=== PATIENT | male | born 1950 | race Caucasian/White ===

== ENCOUNTER 2019-04-12 17:09 | Inpatient (IN) | payer MEDICARE ==
[~2019-04-12] VITALS: Ht 188 cm; Wt 94.3 kg
[2019-04-12 18:11] LABS: BASOPHILS 0.5 % (0-2); EOSINOPHILS 6.3 % (0-7); HEMATOCRIT 44.7 % (42.0-54.0); HEMOGLOBIN 14.3 g/dL (13.5-17.5); IMMATURE GRANULOCYTES 0.5 % (0-5); LYMPHOCYTES 14.2 % (15-50); MCH 24.2 pg (26.0-34.0); MCV 75.8 fL (80.0-100.0); MEAN PLATELET VOLUME 9.6 fL (7.4-10.4); MONOCYTES 14.6 % (2-11); NEUTROPHILS 63.9 % (40-80); PLATELET COUNT 313 10x3/uL (130-400); RDW 18.1 % (11.5-14.5); WBC 8.9 10x3/uL (4.8-10.8)
--- NOTE | 2019-04-12 18:16 | NUR ---
PT FROM DR OFFICE UPON ARRIVAL OXYGEN STAT WAS IN 50S. WHEN ARRIVED ON THE FLOOR ON 4L NC ONLY STATING 77. ON 6L NC NOW STATING 91. DENIES ANY PAIN AT THIS TIME. IV TO RIGHT HAND PATENT NO REDNESS OR TENDERNESS. DENIES ANY FURTHER NEED AT THIS TIME. CALL LIGHT IN REACH. BED LOW POSITION. FAMILY AT BEDSIDE AT THIS TIME.
[2019-04-12 18:25] VITALS: BP 157/85; BMI 26.7
[2019-04-12] MEDS ORDERED: AZOR 10-20 MG T1 TAB PO (18:40)
[2019-04-12] MEDS ORDERED: FARXIGA10 MG PO (18:41)
[2019-04-12] MEDS ORDERED: OMEPRAZOLE40 MG PO (18:42)
[2019-04-12] MEDS ORDERED: TRIAMTERENE-HC1 EAC3 PO (18:43)
[2019-04-12 18:48] LABS: ALBUMIN 3.5 g/dL (3.4-5.0); ALKALINE PHOSPHATASE 55 U/L (46-116); ALT (SGPT) 19 U/L (10-68); BILIRUBIN - TOTAL 0.56 mg/dL (0.2-1.3); CALC OSMOLALITY 281 mosm/kg (275-300); CALCIUM 8.9 mg/dL (8.5-10.1); CARBON DIOXIDE 30.6 mmol/L (21.0-32.0); CHLORIDE - SERUM 101 mmol/L (98-107); CREATININE - SERUM 1.1 mg/dL (0.6-1.3); GLUCOSE 153 mg/dL (74-106); POTASSIUM - SERUM 3.9 mmol/L (3.5-5.1); PROTEIN - SERUM 7.6 g/dL (6.4-8.2); SODIUM 140 mmol/L (136-145); UREA NITROGEN 12 mg/dL (7-18); eGFR NON AFRICAN AMERICAN 70 mL/min (90-120)
[2019-04-12 18:59] LABS: CKMB 1.1 U/L (0.0-3.6); CREATINE KINASE 73 UL (21-232); TROPONIN-I < 0.017 ng/mL (0.000-0.060)
[2019-04-12 20:52] VITALS: BP 115/76
--- NOTE | 2019-04-12 21:00 | NUR ---
AWAKE,ALERT.NO COMPLAITNS VOICED. RESP UNLABORED. O2 @ 9L PER HIGHFLOW. NO DISTRESS NOTED. IV TO RIGHT HAND INTACT WITHOUT REDNESS OR EDEMA NOTED. CL IN REACH
[2019-04-13 01:11] VITALS: BP 126/73
--- NOTE | 2019-04-13 04:48 | NUR ---
I have reviewed this patient and I concur with the Shift Assessment completed by the Licensed Practical Nurse today this shift.
[2019-04-13 06:01] VITALS: BP 127/78
[2019-04-13 06:22] LABS: BASOPHILS 0.1 % (0-2); EOSINOPHILS 0 % (0-7); HEMATOCRIT 43.5 % (42.0-54.0); HEMOGLOBIN 13.9 g/dL (13.5-17.5); IMMATURE GRANULOCYTES 0.4 % (0-5); LYMPHOCYTES 9.8 % (15-50); MCH 24.1 pg (26.0-34.0); MCV 75.4 fL (80.0-100.0); MEAN PLATELET VOLUME 10.2 fL (7.4-10.4); NEUTROPHILS 87.7 % (40-80); PLATELET COUNT 346 10x3/uL (130-400); RBC 5.77 10x6/uL (4.20-6.10); RDW 18.3 % (11.5-14.5); WBC 7.2 10x3/uL (4.8-10.8)
[2019-04-13 06:48] LABS: CALC OSMOLALITY 284 mosm/kg (275-300); CALCIUM 8.8 mg/dL (8.5-10.1); CARBON DIOXIDE 29.6 mmol/L (21.0-32.0); CHLORIDE - SERUM 101 mmol/L (98-107); CREATININE - SERUM 0.9 mg/dL (0.6-1.3); GLUCOSE 186 mg/dL (74-106); MAGNESIUM - SERUM 2.4 mg/dL (1.8-2.4); PHOSPHOROUS 3.6 mg/dL (2.5-4.9); POTASSIUM - SERUM 4.9 mmol/L (3.5-5.1); PRO BNP 408 pg/mL (0-125); SODIUM 140 mmol/L (136-145); UREA NITROGEN 15 mg/dL (7-18); eGFR NON AFRICAN AMERICAN 89 mL/min (90-120)
[2019-04-13 07:06] LABS: INR 1.16 (0.85-1.17); PROTIME 14.3 SECONDS (11.6-15.0)
[2019-04-13 07:07] LABS: APTT 34.9 SECONDS (22.8-39.4)
[2019-04-13 07:08] LABS: D-DIMER-QUANTITATIVE 0.71 ug/mLFEU (0.20-0.54)
[2019-04-13 08:43] VITALS: BP 141/83
[2019-04-13 12:08] VITALS: Ht 188 cm; Wt 94.3 kg
--- NOTE | 2019-04-13 12:47 | NUR ---
PT RESTING IN BED. NO SIGNS OF DISTRESS. IV TO RIGHT HAND AND LEFT FORMARM PATENT NO REDNESS OR TENDERNESS. COMPLAINS OF PAIN. MEDICATIONS GIVEN. ON 9L HIGHFLOW. DENIES ANY FURTHER NEED AT THIS TIME. CALL LIGHT IN REACH BED LOW POSITION. FAMILY AT BEDSIDE AT THIS TIME.
[2019-04-13 12:50] LABS: APPEARANCE CLEAR (CLEAR); BILIRUBIN NEGATIVE (NEGATIVE); COLOR YELLOW (YELLOW); GLUCOSE 250 mg/dL (NEGATIVE); KETONE SMALL mg/dL (NEGATIVE); NITRITE NEGATIVE (NEGATIVE); PROTEIN NEGATIVE (NEGATIVE); UROBILINOGEN NORMAL (NORMAL)
[2019-04-13 13:12] VITALS: BP 123/72
--- NOTE | 2019-04-13 13:32 | NUR ---
I have reviewed this patient and I concur with the Shift Assessment completed by the Licensed Practical Nurse today this shift.
[2019-04-13 15:43] VITALS: BP 111/69
--- NOTE | 2019-04-13 20:45 | NUR ---
WATCHING TV QUEITLY WITH NO DISTRESS NOTED. RESP UNALBORED. O2 @ 3L PER NC ON. SL TO RIGHT WRIST AND LEFT FOREARM WITHOUT REDNESS OR EDEMA NOTED. NO COMPLAITNS VOCIED. CL IN REACH
[2019-04-13 21:08] VITALS: BP 114/69
--- NOTE | 2019-04-14 02:35 | NUR ---
I have reviewed this patient and I concur with the Shift Assessment completed by the Licensed Practical Nurse today this shift.
[2019-04-14 05:04] VITALS: BP 113/68
[2019-04-14 05:14] LABS: BASOPHILS 0 % (0-2); EOSINOPHILS 0 % (0-7); HEMATOCRIT 43.1 % (42.0-54.0); HEMOGLOBIN 13.1 g/dL (13.5-17.5); IMMATURE GRANULOCYTES 0.2 % (0-5); LYMPHOCYTES 6.6 % (15-50); MCH 23.8 pg (26.0-34.0); MCHC 30.4 g/dL (31.0-37.0); MEAN PLATELET VOLUME 9.5 fL (7.4-10.4); MONOCYTES 6.7 % (2-11); NEUTROPHILS 86.5 % (40-80); PLATELET COUNT 341 10x3/uL (130-400); RDW 17.9 % (11.5-14.5)
[2019-04-14 05:20] LABS: MCV 78.4 fL (80.0-100.0); WBC 13.8 10x3/uL (4.8-10.8)
[2019-04-14 06:05] LABS: CALC OSMOLALITY 290 mosm/kg (275-300); CHLORIDE - SERUM 104 mmol/L (98-107); GLUCOSE 187 mg/dL (74-106); MAGNESIUM - SERUM 2.4 mg/dL (1.8-2.4); PHOSPHOROUS 4.5 mg/dL (2.5-4.9); POTASSIUM - SERUM 4.8 mmol/L (3.5-5.1); SODIUM 142 mmol/L (136-145)
[2019-04-14 06:17] LABS: CALCIUM 8.2 mg/dL (8.5-10.1); eGFR NON AFRICAN AMERICAN 79 mL/min (90-120)
[2019-04-14 06:22] LABS: UREA NITROGEN 21 mg/dL (7-18)
[2019-04-14 08:06] VITALS: BP 135/74
--- NOTE | 2019-04-14 12:37 | NUR ---
PT RESTING IN BED. NO SIGNS OF DISTRESS. IV TO RIGHT HAND AND LEFT FORARM PATENT NO REDNESS OR TENDERNESS. ON 4L HIGH FLOW. DENIES ANY FURTHER NEED AT THIS TIME. CALL LIGHT IN REACH. BED LOW POSITION. FAMILY AT BEDSIDE AT THIS TIME.
--- NOTE | 2019-04-14 12:40 | EC ---
PATIENT:CHELSEA HERNANDEZ DATE OF SERVICE: 04/12/19 SEX: M MEDICAL RECORD: [id number] DATE OF : [birth year] LOCATION:D.MS Day AGE OF PATIENT: 68 ADMISSION DATE: 04/12/19 REFERRING PHYSICIAN: INTERPRETING PHYSICIAN: KEN PAUL MD ECHOCARDIOGRAM REPORT ECHO CHARGES 4 ECHO COMPLETE Date: 04/13/19 CLINICAL DIAGNOSIS: MEDEL/WEAKNESS ECHOCARDIOGRAPHIC MEASUREMENTS (adult normal given) AC root (d.<3.7cm) 3.2 cm LV Septum d (<1.2 cm> 1.0 cm Valve Excursion 1.9 cm LV Septum (systole) 1.5 cm Left Atria (s.<4.0cm> 3.5 cm LVPW d(<1.2cm) 1.1 cm RV (d.<2.3cm) 3.1 cm LVPW (sytole) 2.0 cm LV diastole(<5.6CM) 5.1 cm MV E-F(>70mm/sec) cm LV systole 2.4 cm LVOT Diameter 1.9 cm MV exc.(>10mm) cm Est.ejection fraction (50-75%) % DOPPLER: LVIT cm/sec A 101 cm/sec E 83.0 cm/sec LA cm/sec RVSP 17.0 mmHg LVOT 117 cm/sec AOP1/2T m/s Asc. Ao 132 cm/sec RVOT 71.0 cm/sec RA cm/sec PA 62.0 cm/sec AV Gradient Peak 7.0 mmHg AV Mean 3.0 mmHg AV Area 2.7 cm MV Gradient Peak 6.0 mmHg MV Mean 2.2 mmHg MV Area cm COMMENTS: Dope House Operator Helper: Josef PIERCEOE Switchboard And Control Room Operator: 3 Dr. Lloyd TAPE# PACS Pericardial Effusion N DATE OF SERVICE: Adequate 2D, color flow, spectral Doppler, and M-mode. No LVH. LV internal dimension is normal. Wall motion is normal. EF is greater than or equal to 55%. Aortic valve is tricuspid. No evidence of stenosis by Doppler interrogation. Left atrium is normal at 3.5 cm. Mitral valve shows no prolapse. Trace MR. Right-sided chambers grossly normal. Trace TR. TRANSINT:[id number] Voice Confirmation ID: [id number] DOCUMENT ID: [id number] ECHOCARDIOGRAM REPORT [id number] CHELSEA HERNANDEZ,KEN Stewart MD at 1240 CC: [id number] DICTATION DATE: 04/13/19 131 DIGITAL PRE PRESS OPERATOR: 04/13/19 1327 ADM IN [place] [id number] [place] [id number]
[2019-04-14 12:56] VITALS: BP 130/85
[2019-04-14] MEDS ORDERED: PREDNISONE10 MG PO (13:03)
--- NOTE | 2019-04-14 13:30 | MORECARE ---
CASE MANAGEMENT DISCHARGE SUMMARY PATIENT: CHELSEA DESAI UNIT: [id number] ADM DATE: 04/12/19 AGE: 68 : 49 SEX: M ROOM/BED: D.2234 AUTHOR: DALTON CARRASCO PHYSICIAN: REFERRING PHYSICIAN: BOBO BELL MD DATE OF SERVICE: 04/14/19 Discharge Plan Patient Name: CHELSEA DESAI [facility] [facility] 1950 Planned Disposition: Home Anticipated Discharge Date: 04/14/19 Discharge Date: Expected LOS: 2 Initial Reviewer: [email or web address] Initial Review Date: 04/14/2019 Generated: 04/14/19 2:29 pm DCPIA - Discharge Planning Initial Assessment Updated by [id number]: Petty Barber on 04/14/19 1:27 pm * Is the patient Alert and Oriented? Yes * How many steps to enter\exit or inside your home? 1/0 * PCP Dr. Bell * Pharmacy [facility] in [place] * Preadmission Environment Home with Family * ADLs Independent * Equipment Nebulizer Other Oxygen * Other Equipment Portable oxygen * List name and contact numbers for known caregivers / representatives who currently or will assist patient after discharge: Anaid Desai - [phone] * Verbal permission to speak to the caregivers and representatives has been obtained from the patient. Yes * Community resources currently utilized None * Please name any agencies selected above. DME is [employer] for oxygen * Additional services required to return to the preadmission environment? No * Can the patient safely return to the preadmission environment? Yes * Has this patient been hospitalized within the prior 30 days at any hospital? No Patient Name: CHELSEA DESAI Page [id number] at 1330 All edits/amendments must be made on the electronic document DICTATION DATE: 04/14/19 1329 SOLAR ENERGY SALES SPECIALIST: NICOL 04/14/19 1329 RPT#: [id number] DC DATE: STATUS: ADM IN [facility] [address] [place] [address] END OF REPORT
--- NOTE | 2019-04-14 13:37 | MORECARE ---
CASE MANAGEMENT DISCHARGE SUMMARY PATIENT: CHELSEA DESAI UNIT: [id number] ADM DATE: 04/12/19 AGE: 68 : 49 SEX: M ROOM/BED: D.2234 AUTHOR: DANILO,DOC PHYSICIAN: REFERRING PHYSICIAN: BOBO BELL MD DATE OF SERVICE: 04/14/19 Discharge Plan Patient Name: CHELSEA DESAI Facility: [facility]:[place] : 1950 Planned Disposition: Home Anticipated Discharge Date: 04/14/19 Discharge Date: Expected LOS: 2 Initial Reviewer: [email or web address] Initial Review Date: 04/14/2019 Generated: 04/14/19 2:36 pm Comments DCP- Discharge Planning Updated by [email or web address]: Petty Barber on 04/14/19 12:[address] Patient Name: CHELSEA DESAI Admission Status: Urgent Accout number: [id number] Admission Date: 04-12-2019 : 1950 Admission Diagnosis:EMPHYSEMA, UNSPECIFIED Attending: ANISA BELL Current LOS: 2 Anticipated DC Date: 04-14-2019 Planned Disposition: Home Primary Insurance: [employer] CHOICE PPO MCR ADVANT Discharge Planning Comments: CM met with patient to complete initial dc planning assessment. CM educated patient on the CM role and verbal consent given by patient to complete assessment. Patient lives at home with his . At discharge patient plans to return and feels this is a safe discharge. CM discussed availability of home health, rehab services, and medical equipment. Patient denied known discharge needs at this time. He states he gets his oxygen from [facility]. He states that his machine will go to 4 liters NC. CM will continue to follow and will assist as needed with dc plans/needs. Jig Builder: Petty Barber DCPIA - Discharge Planning Initial Assessment Updated by [email or web address]: Petty Barber on 04/14/19 1:27 pm * Is the patient Alert and Oriented? Yes * How many steps to enter\exit or inside your home? 1/0 * PCP Dr. Bell * Pharmacy [facility] in [place] * Preadmission Environment Home with Family * ADLs Independent * Equipment Nebulizer Other Oxygen * Other Equipment Portable oxygen * List name and contact numbers for known caregivers / representatives who currently or will assist patient after discharge: Anaid Desai - [phone] * Verbal permission to speak to the caregivers and representatives has been obtained from the patient. Yes * Community resources currently utilized None * Please name any agencies selected above. DME is [facility] for oxygen * Additional services required to return to the preadmission environment? No * Can the patient safely return to the preadmission environment? Yes * Has this patient been hospitalized within the prior 30 days at any hospital? No Last DP export: 04/14/19 12:29 p Patient Name: CHELSEA DESAI Page [id number] at 1337 All edits/amendments must be made on the electronic document DICTATION DATE: 04/14/191335 FRONT DESK ASSISTANT: NICOL 04/14/191335 RPT#: [id number] DC DATE: STATUS: ADM IN [facility] [address] [place] [address] END OF REPORT
--- NOTE | 2019-04-14 15:39 | NUR ---
DISCHARGE INSTRUCTIONS GIVEN. SEEMS TO UNDERSTAND INSTRUCTIONS. IVS OUT TIP INTACT. NO SIGNS OF DISTRESS. LEFT WITH HOSPITAL STAFF TO GO HOME WITH FAMILY MEMEBER TO PERSONAL RIDE. DENIES ANY NEED AT THIS TIME.
--- NOTE | 2019-04-17 09:43 | MORECARE ---
CASE MANAGEMENT DISCHARGE SUMMARY PATIENT: CHELSEA DESAI UNIT: [id number] ADM DATE: 04/12/19 AGE: 68 : 49 SEX: M ROOM/BED: D.2234 AUTHOR: DANILO,DOC PHYSICIAN: REFERRING PHYSICIAN: BOBO BELL MD DATE OF SERVICE: 04/17/19 Discharge Plan Patient Name: CHELSEA DESAI Facility: [facility]:[place] : 1950 Planned Disposition: Home Anticipated Discharge Date: 04/14/19 Discharge Date: 04/14/2019 Expected LOS: 2 Initial Reviewer: [email or web address] Initial Review Date: 04/14/2019 Generated: 04/17/19 10:42 am Comments DCP- Discharge Planning Updated by [email or web address]: Petty Barber on 04/14/19 12:[address] Patient Name: CHELSEA DESAI Admission Status: Urgent Accout number: [id number] Admission Date: 04-12-2019 : 1950 Admission Diagnosis:EMPHYSEMA, UNSPECIFIED Attending: ANISA BELL Current LOS: 2 Anticipated DC Date: 04-14-2019 Planned Disposition: Home Primary Insurance: [employer] CHOICE PPO MCR ADVANT Discharge Planning Comments: CM met with patient to complete initial dc planning assessment. CM educated patient on the CM role and verbal consent given by patient to complete assessment. Patient lives at home with his . At discharge patient plans to return and feels this is a safe discharge. CM discussed availability of home health, rehab services, and medical equipment. Patient denied known discharge needs at this time. He states he gets his oxygen from [facility]. He states that his machine will go to 4 liters NC. CM will continue to follow and will assist as needed with dc plans/needs. Show Horse Driver: Petty Barber DCPIA - Discharge Planning Initial Assessment Updated by [email or web address]: Petty Barber on 04/14/19 1:27 pm * Is the patient Alert and Oriented? Yes * How many steps to enter\exit or inside your home? 1/0 * PCP Dr. Bell * Pharmacy [facility] in [place] * Preadmission Environment Home with Family * ADLs Independent * Equipment Nebulizer Other Oxygen * Other Equipment Portable oxygen * List name and contact numbers for known caregivers / representatives who currently or will assist patient after discharge: Anaid Desai - [phone] * Verbal permission to speak to the caregivers and representatives has been obtained from the patient. Yes * Community resources currently utilized None * Please name any agencies selected above. DME is [facility] for oxygen * Additional services required to return to the preadmission environment? No * Can the patient safely return to the preadmission environment? Yes * Has this patient been hospitalized within the prior 30 days at any hospital? No Last DP export: 04/14/19 12:37 p Patient Name: CHELSEA DESAI Page [phone] at 0943 All edits/amendments must be made on the electronic document DICTATION DATE: 04/17/19941 OPEN WINDER: NICOL 04/17/19941 RPT#: [id number] DC DATE:04/14/19 STATUS: DIS IN [facility] [address] [place] [address] END OF REPORT
== END 2019-04-14 15:41 | disposition home or self-care (01) | DRG 189 ==
LOC: D.MS 17:09
PROVIDERS: Internal Medicine Nephrology; ADMIT Emergency Medicine; ATTEND Emergency Medicine
DX: J96.21 Acute and chronic respiratory failure with hypoxia (principal); K51.90 Ulcerative colitis, unspecified, without complications; J43.9 Emphysema, unspecified; G47.33 Obstructive sleep apnea (adult) (pediatric); E11.40 Type 2 diabetes mellitus with diabetic neuropathy, unspecified; K21.9 Gastro-esophageal reflux disease without esophagitis; M54.9 Dorsalgia, unspecified; D75.1 Secondary polycythemia; Z99.81 Dependence on supplemental oxygen

== ENCOUNTER 2019-05-19 13:54 | Inpatient (IN) | payer MEDICARE ==
[~2019-05-19] VITALS: Ht 188 cm; Wt 95.3 kg
[~2019-05-19 13:54] MED LIST: AZOR 10-20 MG T1 TAB PO; FARXIGA10 MG PO; OMEPRAZOLE40 MG PO; PREDNISONE10 MG PO; TRIAMTERENE-HC1 EAC3 PO
[2019-05-19] MEDS ORDERED: OXYCONTIN10 MG PO (14:17)
[2019-05-19] MEDS ORDERED: PROVENTIL/2.5 MG/3 M INH (14:17)
[2019-05-19 14:32] LABS: BASOPHILS 0.3 % (0-2); EOSINOPHILS 0.5 % (0-7); HEMOGLOBIN 14.4 g/dL (13.5-17.5); IMMATURE GRANULOCYTES 0.2 % (0-5); LYMPHOCYTES 9.6 % (15-50); MCH 22.4 pg (26.0-34.0); MCV 74.7 fL (80.0-100.0); MEAN PLATELET VOLUME 9.4 fL (7.4-10.4); MONOCYTES 12.3 % (2-11); NEUTROPHILS 77.1 % (40-80); PLATELET COUNT 217 10x3/uL (130-400); RBC 6.43 10x6/uL (4.20-6.10); RDW 17.9 % (11.5-14.5); WBC 8.7 10x3/uL (4.8-10.8)
[2019-05-19 14:35] VITALS: BP 120/73
[2019-05-19 14:40] LABS: APTT 36.9 SECONDS (22.8-39.4); INR 1.29 (0.85-1.17); PROTIME 15.5 SECONDS (11.6-15.0)
[2019-05-19 14:41] LABS: CALC OSMOLALITY 277 mosm/kg (275-300); CALCIUM 8.5 mg/dL (8.5-10.1); CARBON DIOXIDE 27.7 mmol/L (21.0-32.0); CHLORIDE - SERUM 98 mmol/L (98-107); CREATININE - SERUM 0.9 mg/dL (0.6-1.3); POTASSIUM - SERUM 3.7 mmol/L (3.5-5.1); SODIUM 138 mmol/L (136-145); UREA NITROGEN 13 mg/dL (7-18); eGFR NON AFRICAN AMERICAN 89 mL/min (90-120)
[2019-05-19 14:52] LABS: GLUCOSE 136 mg/dL (74-106)
[2019-05-19 14:57] LABS: ALBUMIN 3.7 g/dL (3.4-5.0); ALKALINE PHOSPHATASE 71 U/L (46-116); ALT (SGPT) 34 U/L (10-68); CKMB 0.7 U/L (0.0-3.6); CREATINE KINASE 66 UL (21-232); PRO BNP 339 pg/mL (0-125)
[2019-05-19 14:59] LABS: TROPONIN-I < 0.017 ng/mL (0.000-0.060)
[2019-05-19 15:00] VITALS: BP 126/73
[2019-05-19 16:00] VITALS: BP 116/77
--- NOTE | 2019-05-19 16:30 | NUR ---
PT POC IS 139MG/DL. DID NOT MEET REQUIRMENTS FOR INSULIN ON THE SLIDING SCALE.
[2019-05-19 17:00] VITALS: BP 137/76
--- NOTE | 2019-05-19 19:37 | NUR ---
RECEIVED PATIENT ALERT,ORIENTED. RESP UNALBORED. O2 @ 6L PER NC. NO DISTRESS NOTED. SL TO RFA INTACT WITHOUT REDNESS OR EDEMA NOTED. ORIENTED TO ROOM. CL IN REACH
[2019-05-19 21:36] VITALS: BP 122/75
--- NOTE | 2019-05-19 22:37 | NUR ---
REFUSED TELEMENTRY. STATES"DONT HAVE HEART PROBLEM'
[2019-05-19 22:50] VITALS: BP 122/75; BMI 27.0
[2019-05-20 01:05] VITALS: BP 130/84
--- NOTE | 2019-05-20 04:17 | NUR ---
I have reviewed this patient and I concur with the Shift Assessment completed by the Licensed Practical Nurse today this shift.
[2019-05-20 05:16] VITALS: BP 133/84
[2019-05-20 06:28] LABS: BASOPHILS 0.1 % (0-2); EOSINOPHILS 0 % (0-7); HEMATOCRIT 46.2 % (42.0-54.0); HEMOGLOBIN 13.9 g/dL (13.5-17.5); IMMATURE GRANULOCYTES 0.5 % (0-5); MCH 22.6 pg (26.0-34.0); MCHC 30.1 g/dL (31.0-37.0); MCV 75.1 fL (80.0-100.0); MEAN PLATELET VOLUME 10.1 fL (7.4-10.4); MONOCYTES 4.5 % (2-11); NEUTROPHILS 85.9 % (40-80); RBC 6.15 10x6/uL (4.20-6.10); WBC 8.5 10x3/uL (4.8-10.8)
[2019-05-20 06:29] LABS: PLATELET COUNT 283 10x3/uL (130-400)
[2019-05-20 06:40] LABS: ALBUMIN 3.5 g/dL (3.4-5.0); ALKALINE PHOSPHATASE 69 U/L (46-116); ALT (SGPT) 38 U/L (10-68); BILIRUBIN - TOTAL 0.63 mg/dL (0.2-1.3); CALCIUM 8.7 mg/dL (8.5-10.1); CHLORIDE - SERUM 98 mmol/L (98-107); PROTEIN - SERUM 7.5 g/dL (6.4-8.2); SODIUM 138 mmol/L (136-145); eGFR NON AFRICAN AMERICAN 79 mL/min (90-120)
[2019-05-20 06:43] LABS: CALC OSMOLALITY 282 mosm/kg (275-300); GLUCOSE 193 mg/dL (74-106); UREA NITROGEN 18 mg/dL (7-18)
--- NOTE | 2019-05-20 07:51 | NUR ---
ALERT AND ORIENTED X4. LUNGS DINMINISHED X4 WITH SLIGHT DYSPNEA NOTED. O2 5 LITERS N/C. IV INTACT TO RT. F/A. DENIES ANY PAIN OR DISCOMFORT. NO PERIPHERAL EDEMA OR CHEST PAIN. DENIES TELEMETRY. ENCOURAED TO USE CALLL LIGHT FOR ASSIST.
[2019-05-20 07:56] VITALS: BP 110/64
[2019-05-20 14:24] VITALS: BP 144/78
[2019-05-20 19:30] VITALS: BP 115/75
[2019-05-20] MEDS ORDERED: AZULFIDINE500 MG PO (20:30)
--- NOTE | 2019-05-20 21:48 | NUR ---
AWAKE,ALERT NO DISTRESS NOTED. 02 @ 5L PER NC ON. RESP UNLABORED. CL IN REACH
--- NOTE | 2019-05-20 23:17 | NUR ---
I have reviewed this patient and I concur with the Shift Assessment completed by the Licensed Practical Nurse today this shift.
[2019-05-21 00:30] VITALS: BP 119/50; BP 120/70
[2019-05-21 04:30] VITALS: BP 123/80
[2019-05-21 06:17] LABS: BASOPHILS 0.1 % (0-2); EOSINOPHILS 0.1 % (0-7); HEMATOCRIT 43.7 % (42.0-54.0); IMMATURE GRANULOCYTES 0.4 % (0-5); MCH 22.3 pg (26.0-34.0); MCHC 29.7 g/dL (31.0-37.0); MEAN PLATELET VOLUME 10.1 fL (7.4-10.4); MONOCYTES 10.6 % (2-11); NEUTROPHILS 83.8 % (40-80); PLATELET COUNT 291 10x3/uL (130-400); RBC 5.83 10x6/uL (4.20-6.10); RDW 18.1 % (11.5-14.5)
[2019-05-21 06:43] LABS: ALBUMIN 3.2 g/dL (3.4-5.0); ALKALINE PHOSPHATASE 57 U/L (46-116); ALT (SGPT) 38 U/L (10-68); BILIRUBIN - TOTAL 0.38 mg/dL (0.2-1.3); CALC OSMOLALITY 290 mosm/kg (275-300); CALCIUM 8.6 mg/dL (8.5-10.1); CARBON DIOXIDE 32.5 mmol/L (21.0-32.0); CHLORIDE - SERUM 103 mmol/L (98-107); GLUCOSE 210 mg/dL (74-106); POTASSIUM - SERUM 3.7 mmol/L (3.5-5.1); PROTEIN - SERUM 6.6 g/dL (6.4-8.2); SODIUM 141 mmol/L (136-145); eGFR NON AFRICAN AMERICAN 79 mL/min (90-120)
[2019-05-21 06:48] LABS: UREA NITROGEN 23 mg/dL (7-18)
[2019-05-21 08:09] VITALS: BP 108/63
--- NOTE | 2019-05-21 09:00 | NUR ---
ALERT AND ORIENTED X4. O2 5L N/C WITH LUNGS CTA WITH IMPROVED INSPIRATORY EFFORT NOTED. UP ADLIB AND GETTING SHOWER THIS AM. IV TO RT. F/A INFUSING AT PRESCRIBED RATE. ENCOURAGED TO USE CALL LIGHT FOR ASSIST
[2019-05-21 12:28] VITALS: BP 117/76
[2019-05-21 16:54] VITALS: BP 127/72
[2019-05-21 19:30] VITALS: BP 151/93
--- NOTE | 2019-05-21 21:10 | NUR ---
LYING QUIELTY WITH NO DISTRESS NOTED. IV TO RIGHT HAND INTACT WITHOUT REDNESS OR EDEMA NOTED. RESP UNLABORED. CL IN REACH
[2019-05-22 00:30] VITALS: BP 110/74
[2019-05-22 04:00] VITALS: BP 116/71
--- NOTE | 2019-05-22 04:44 | NUR ---
I have reviewed this patient and I concur with the Shift Assessment completed by the Licensed Practical Nurse today this shift.
[2019-05-22 07:01] LABS: ALBUMIN 3.1 g/dL (3.4-5.0); ALKALINE PHOSPHATASE 51 U/L (46-116); ALT (SGPT) 45 U/L (10-68); BILIRUBIN - TOTAL 0.38 mg/dL (0.2-1.3); CALC OSMOLALITY 288 mosm/kg (275-300); CALCIUM 8.5 mg/dL (8.5-10.1); CARBON DIOXIDE 30.3 mmol/L (21.0-32.0); CHLORIDE - SERUM 102 mmol/L (98-107); CREATININE - SERUM 0.8 mg/dL (0.6-1.3); GLUCOSE 211 mg/dL (74-106); POTASSIUM - SERUM 3.7 mmol/L (3.5-5.1); PROTEIN - SERUM 5.6 g/dL (6.4-8.2); SODIUM 141 mmol/L (136-145); UREA NITROGEN 19 mg/dL (7-18); eGFR NON AFRICAN AMERICAN > 90 mL/min (90-120)
[2019-05-22 08:29] LABS: BASOPHILS 0.2 % (0-2); EOSINOPHILS 0 % (0-7); HEMATOCRIT 40.7 % (42.0-54.0); HEMOGLOBIN 11.9 g/dL (13.5-17.5); IMMATURE GRANULOCYTES 0.2 % (0-5); LYMPHOCYTES 8.6 % (15-50); MCH 22.2 pg (26.0-34.0); MCHC 29.2 g/dL (31.0-37.0); MCV 75.8 fL (80.0-100.0); MEAN PLATELET VOLUME 10.4 fL (7.4-10.4); MONOCYTES 15.1 % (2-11); NEUTROPHILS 75.9 % (40-80); PLATELET COUNT 270 10x3/uL (130-400); RBC 5.37 10x6/uL (4.20-6.10); RDW 18.1 % (11.5-14.5); WBC 9.1 10x3/uL (4.8-10.8)
[2019-05-22 08:51] VITALS: BP 122/74
--- NOTE | 2019-05-22 09:00 | NUR ---
ASSESSMENT PER FLOW SHEET. PT IS WITHOUT DISTRESS. MONITOR FOR NEEDS.CALL LIGHT IN REACH
[2019-05-22 12:30] VITALS: BP 125/72
[2019-05-22 15:05] VITALS: Ht 188 cm; Wt 95.3 kg
[2019-05-22 16:21] VITALS: BP 149/82
--- NOTE | 2019-05-22 18:36 | NUR ---
REMAINS WITHOUT NEEDS.BLOOD SUGAR 450,PT HAD CHOCOLATE MALT AND DINNER. SLIDING SCALE FOLLOWED ORDERED.
[2019-05-22 19:30] VITALS: BP 137/76
--- NOTE | 2019-05-22 20:00 | NUR ---
A&O X 4. AMBULATORY AD FATOU. REPORTS MILD PAIN BEGINNING TO START. FSBS IS 465, STAT GLUCOSE ORDERED. PT DENIES NEEDS AT THIS TIME, WILL CONTNUE TO MONITOR.
--- NOTE | 2019-05-22 22:00 | NUR ---
REASSESSMENT OF FSBS: 270
[2019-05-23 00:30] VITALS: BP 113/68
--- NOTE | 2019-05-23 03:40 | NUR ---
I have reviewed this patient and I concur with the Shift Assessment completed by the Licensed Practical Nurse today this shift.
[2019-05-23 04:30] VITALS: BP 115/67
--- NOTE | 2019-05-23 05:48 | NUR ---
FSBS 67. PT GIVEN DKUE CRACKERS WITH PEANUTBUTTER AND COFFEE WITH CREAM AND SUGAR PER REQUEST. WILL MONITOR CLOSELY.
[2019-05-23 08:14] LABS: BASOPHILS 0.3 % (0-2); EOSINOPHILS 2.5 % (0-7); HEMATOCRIT 44.6 % (42.0-54.0); HEMOGLOBIN 13.1 g/dL (13.5-17.5); IMMATURE GRANULOCYTES 0.3 % (0-5); LYMPHOCYTES 8.5 % (15-50); MCH 22.3 pg (26.0-34.0); MCHC 29.4 g/dL (31.0-37.0); MEAN PLATELET VOLUME 10.5 fL (7.4-10.4); MONOCYTES 12.5 % (2-11); NEUTROPHILS 75.9 % (40-80); PLATELET COUNT 261 10x3/uL (130-400); RBC 5.87 10x6/uL (4.20-6.10); RDW 18.2 % (11.5-14.5); WBC 7.7 10x3/uL (4.8-10.8)
[2019-05-23 08:15] LABS: ALBUMIN 3.3 g/dL (3.4-5.0); ALKALINE PHOSPHATASE 62 U/L (46-116); BILIRUBIN - TOTAL 0.56 mg/dL (0.2-1.3); CALCIUM 8.6 mg/dL (8.5-10.1); CARBON DIOXIDE 34.8 mmol/L (21.0-32.0); CHLORIDE - SERUM 101 mmol/L (98-107); CREATININE - SERUM 0.9 mg/dL (0.6-1.3); POTASSIUM - SERUM 3.5 mmol/L (3.5-5.1); PROTEIN - SERUM 6.5 g/dL (6.4-8.2); SODIUM 141 mmol/L (136-145); UREA NITROGEN 18 mg/dL (7-18); eGFR NON AFRICAN AMERICAN 89 mL/min (90-120)
[2019-05-23 08:16] LABS: ALT (SGPT) 87 U/L (10-68); CALC OSMOLALITY 285 mosm/kg (275-300); GLUCOSE 152 mg/dL (74-106)
[2019-05-23 08:27] VITALS: BP 152/77
--- NOTE | 2019-05-23 09:00 | NUR ---
ASSESSMENT PER FLOW SHEET. PT IS WITHOUT DISTRESS.CALL LIGHT IN REACH
[2019-05-23] MEDS ORDERED: ZITHROMAX500 MG PO (11:53)
--- NOTE | 2019-05-23 11:55 | MORECARE ---
CASE MANAGEMENT DISCHARGE SUMMARY PATIENT: CHELSEA HERNANDEZ UNIT: [id number] ADM DATE: 05/19/19 AGE: 68 : 49 SEX: M ROOM/BED: D.2228 AUTHOR: DALTON CARRASCO PHYSICIAN: REFERRING PHYSICIAN: JOSE KOEHLER DO DATE OF SERVICE: 05/23/19 Discharge Plan Patient Name: CHELSEA HERNANDEZ [facility] [facility] 1950 Planned Disposition: Home Anticipated Discharge Date: 05/23/19 Discharge Date: Expected LOS: 4 Initial Reviewer: [email or web address] Initial Review Date: 05/23/2019 Generated: 05/23/19 12:54 pm Patient Name: CHELSEA HERNANDEZ Page [phone] at 1155 All edits/amendments must be made on the electronic document DICTATION DATE: 05/23/19 1154 TAXATION ACCOUNTANT: NICOL 05/23/19 1154 RPT#: [id number] DC DATE: STATUS: ADM IN [facility] [address] [place] [address] END OF REPORT
[2019-05-23] MEDS ORDERED: PREDNISONE10 MG PO (11:59)
--- NOTE | 2019-05-23 12:04 | MORECARE ---
CASE MANAGEMENT DISCHARGE SUMMARY PATIENT: CHELSEA DESAI UNIT: [id number] ADM DATE: 05/19/19 AGE: 68 : 49 SEX: M ROOM/BED: D.2228 AUTHOR: DANILODOC PHYSICIAN: REFERRING PHYSICIAN: JOSE KOEHLER DO DATE OF SERVICE: 05/23/19 Discharge Plan Patient Name: CHELSEA DESAI Facility: [facility]:[place] : 1950 Planned Disposition: Home Anticipated Discharge Date: 05/23/19 Discharge Date: Expected LOS: 4 Initial Reviewer: [email or web address] Initial Review Date: 05/23/2019 Generated: 05/23/19 1:03 pm Comments DCP- Discharge Planning Updated by [email or web address]: Petty Barber on 05/23/19 10:[address] Patient Name: CHELSEA DESAI Admission Status: ER Accout number: [id number] Admission Date: 05-19-2019 : 1950 Admission Diagnosis: Attending: JOSE KOEHLER Current LOS: 4 Anticipated DC Date: 05-23-2019 Planned Disposition: Home Primary Insurance: [employer] CHOICE PPO MCR ADVANT Discharge Planning Comments: CM met with patient to complete initial dc planning assessment. CM educated patient on the CM role and verbal consent given by patient to complete assessment. Patient lives at home with his . At discharge patient plans to return and feels this is a safe discharge. CM discussed availability of home health, rehab services, and medical equipment. Patient denied known discharge needs at this time. States he has his portable oxygen here and his will drive him home. States his concentrator at home goes up to [address] Norman has ordered 2 new nebulizer medications and Radha at [facility] [place] states they should come today. CM will continue to follow and will assist as needed with dc plans/needs. Fretted Instrument Inspector: Petty Barber DCPIA - Discharge Planning Initial Assessment Updated by [email or web address]: Petty Barber on 05/23/19 11:57 am * Is the patient Alert and Oriented? Yes * How many steps to enter\exit or inside your home? 1/0 * PCP Dr. Bell * Pharmacy [facility] in [place] * Preadmission Environment Home with Family * ADLs Independent * Equipment Nebulizer Other Oxygen * List name and contact numbers for known caregivers / representatives who currently or will assist patient after discharge: Anaid Desai - spouse - [phone] * Verbal permission to speak to the caregivers and representatives has been obtained from the patient. Yes * Community resources currently utilized Other * Please name any agencies selected above. DME company for oxygen and nebulizer - [employer] * Additional services required to return to the preadmission environment? No * Can the patient safely return to the preadmission environment? Yes * Has this patient been hospitalized within the prior 30 days at any hospital? No Coverage Notice Reviewer: [email or web address] Jayshree Barber Notice Issued Date-Time: 05/23/2019 11:30 Notice Type: IM Discharge Notice Notice Delivered To: Patient Relationship to Patient: Self Concrete Vibrator Operator Name: Delivery Method: HAND - Hand Delivered Sheeba Days: Prior Verbal Notification: Recipient Understood Notice: Yes Recipient Signature: Yes Med Rec Note Co-signed by Attending: Coverage Notice Comment: IMM explained, signed, given, copy placed in MR. His signed the IMM per his request. Last DP export: 05/23/19 10:55 a Patient Name: CHELSEA DESAI Page [phone] at 1204 All edits/amendments must be made on the electronic document DICTATION DATE: 05/23/191202 IT TELECOM TECHNICIAN: NICOL 05/23/191202 RPT#: [id number] DC DATE: STATUS: ADM IN [facility] [address] [place] [address] END OF REPORT
[2019-05-23] MEDS ORDERED: OMNICEF300 MG PO (12:16)
[2019-05-23 12:18] VITALS: BP 127/83
[2019-05-23] MEDS ORDERED: PULMICORT0.5 MG/21 INH (13:06)
[2019-05-23] MEDS ORDERED: BROVANA15 MCG/2 M INH (13:07)
[2019-05-23] MEDS ORDERED: IPRAT-ALBUT 0.5-3 ML UPD (13:10)
--- NOTE | 2019-05-23 14:47 | NUR ---
IV DCD WITH CATH TIP INTACT.DISCHARGE INSTRUCTIONS,STATES UNDERSTANDING
--- NOTE | 2019-05-23 14:50 | NUR ---
LEFT UNIT VIA WHEELCHAIR FOR TRANSPORT HOME
--- NOTE | 2019-05-25 09:37 | MORECARE ---
CASE MANAGEMENT DISCHARGE SUMMARY PATIENT: CHELSEA DESIA UNIT: [id number] ADM DATE: 05/19/19 AGE: 68 : 49 SEX: M ROOM/BED: D.2228 AUTHOR: DANILODOC PHYSICIAN: REFERRING PHYSICIAN: JOSE KOEHLER DO DATE OF SERVICE: 05/25/19 Discharge Plan Patient Name: CHELSEA DESAI Facility[facility]:[place] : 1950 Planned Disposition: Home Anticipated Discharge Date: 05/23/19 Discharge Date: 05/23/2019 Expected LOS: 4 Initial Reviewer: [email or web address] Initial Review Date: 05/23/2019 Generated: 05/25/19 10:37 am Comments DCP- Discharge Planning Updated by [email or web address]: Petty Barber on 05/23/19 10:[address] Patient Name: CHELSEA DESAI Admission Status: ER Accout number: [id number] Admission Date: 05-19-2019 : 1950 Admission Diagnosis: Attending: JOSE KOEHLER Current LOS: 4 Anticipated DC Date: 05-23-2019 Planned Disposition: Home Primary Insurance: [employer] CHOICE PPO MCR ADVANT Discharge Planning Comments: CM met with patient to complete initial dc planning assessment. CM educated patient on the CM role and verbal consent given by patient to complete assessment. Patient lives at home with his . At discharge patient plans to return and feels this is a safe discharge. CM discussed availability of home health, rehab services, and medical equipment. Patient denied known discharge needs at this time. States he has his portable oxygen here and his will drive him home. States his concentrator at home goes up to [address] Norman has ordered 2 new nebulizer medications and Radha at [facility] states they should come today. CM will continue to follow and will assist as needed with dc plans/needs. Devops: Petty Barber DCPIA - Discharge Planning Initial Assessment Updated by [id number]: Petty Barber on 05/23/19 11:57 am * Is the patient Alert and Oriented? Yes * How many steps to enter\exit or inside your home? 1/0 * PCP Dr. Bell * Pharmacy [facility] in [place] * Preadmission Environment Home with Family * ADLs Independent * Equipment Nebulizer Other Oxygen * List name and contact numbers for known caregivers / representatives who currently or will assist patient after discharge: Anaid Desai - spouse - [phone] * Verbal permission to speak to the caregivers and representatives has been obtained from the patient. Yes * Community resources currently utilized Other * Please name any agencies selected above. DME company for oxygen and nebulizer - [employer] * Additional services required to return to the preadmission environment? No * Can the patient safely return to the preadmission environment? Yes * Has this patient been hospitalized within the prior 30 days at any hospital? No Coverage Notice Reviewer: [email or web address] Jayshree Barber Notice Issued Date-Time: 05/23/2019 11:30 Notice Type: IM Discharge Notice Notice Delivered To: Patient Relationship to Patient: Self Mica Builder Name: Delivery Method: HAND - Hand Delivered Sheeba Days: Prior Verbal Notification: Recipient Understood Notice: Yes Recipient Signature: Yes Med Rec Note Co-signed by Attending: Coverage Notice Comment: IMM explained, signed, given, copy placed in MR. His signed the IMM per his request. Last DP export: 05/23/19 11:04 a Patient Name: CHELSEA DESAI Page [phone] at 0937 All edits/amendments must be made on the electronic document DICTATION DATE: 05/25/19936 METROLOGY MANAGER: NICOL 05/25/19936 RPT#: [id number] DC DATE:05/23/19 STATUS: DIS IN [facility] [address] [place] [address] END OF REPORT
== END 2019-05-23 14:51 | disposition home or self-care (01) | DRG 191 ==
LOC: D.ER 13:54 → D.MS 16:07
PROVIDERS: Family Medicine; ADMIT Family Medicine; ATTEND Family Medicine
PROC: 5A09357 Assistance with Respiratory Ventilation, Less than 24 Consecutive Hours, Continuous Positive Airway Pressure (ICD-10-PCS; principal; 2019-05-21)
DX: J43.9 Emphysema, unspecified (principal); J96.11 Chronic respiratory failure with hypoxia; G47.33 Obstructive sleep apnea (adult) (pediatric); E11.65 Type 2 diabetes mellitus with hyperglycemia; E11.40 Type 2 diabetes mellitus with diabetic neuropathy, unspecified; I10 Essential (primary) hypertension; D45 Polycythemia vera; K21.9 Gastro-esophageal reflux disease without esophagitis; M19.90 Unspecified osteoarthritis, unspecified site; M54.9 Dorsalgia, unspecified; Z87.19 Personal history of other diseases of the digestive system

== ENCOUNTER 2019-07-24 09:31 | Inpatient (IN) | payer MEDICARE ==
[~2019-07-24] VITALS: Ht 188 cm; Wt 89.1 kg
[2019-07-24] VITALS (15 sets, daily range): BP systolic 117–153; BP diastolic 70–100; Ht 188 cm; Wt 89.1 kg
[~2019-07-24 09:31] MED LIST changes: +AZULFIDINE500 MG PO; +BROVANA15 MCG/2 M INH; +IPRAT-ALBUT 0.5-3 ML UPD; +OMNICEF300 MG PO; +OXYCONTIN10 MG PO; +PROVENTIL/2.5 MG/3 M INH; +PULMICORT0.5 MG/21 INH; +ZITHROMAX500 MG PO
[2019-07-24 10:20] LABS: CALC OSMOLALITY 285 mosm/kg (275-300); CHLORIDE - SERUM 97 mmol/L (98-107); GLUCOSE 126 mg/dL (74-106); POTASSIUM - SERUM 3.1 mmol/L (3.5-5.1); SODIUM 142 mmol/L (136-145); UREA NITROGEN 15 mg/dL (7-18); eGFR NON AFRICAN AMERICAN 79 mL/min (90-120)
[2019-07-24 10:29] LABS: APTT 36.9 SECONDS (22.8-39.4); INR 1.26 (0.85-1.17); PROTIME 15.2 SECONDS (11.6-15.0)
[2019-07-24 10:30] LABS: D-DIMER-QUANTITATIVE 0.69 ug/mLFEU (0.20-0.54)
[2019-07-24 10:48] LABS: ALBUMIN 4.4 g/dL (3.4-5.0); ALKALINE PHOSPHATASE 75 U/L (46-116); ALT (SGPT) 21 U/L (10-68); BILIRUBIN - TOTAL 0.57 mg/dL (0.2-1.3); CKMB 1.3 U/L (0.0-3.6); CREATINE KINASE 85 UL (21-232); PRO BNP 478 pg/mL (0-125); PROTEIN - SERUM 8.7 g/dL (6.4-8.2); TROPONIN-I < 0.017 ng/mL (0.000-0.060)
[2019-07-24 10:49] LABS: WBC 28.3 10x3/uL (4.8-10.8)
[2019-07-24 10:54] LABS: HEMATOCRIT 52.9 % (42.0-54.0); HEMOGLOBIN 16.6 g/dL (13.5-17.5); MCH 23.3 pg (26.0-34.0); MCHC 31.4 g/dL (31.0-37.0); MCV 74.4 fL (80.0-100.0); PLATELET COUNT 249 10x3/uL (130-400); RBC 7.11 10x6/uL (4.20-6.10); RDW 21.3 % (11.5-14.5)
--- NOTE | 2019-07-24 11:46 | NUR ---
RESTING COMFORTABLY IN BED "I FEEL BETTER"
[2019-07-24] MEDS ORDERED: GABAPENTIN300 MG PO (11:49)
[2019-07-24] MEDS ORDERED: FLOMAX0.4 MG PO (11:50)
[2019-07-24 12:40] LABS: ANISOCYTOSIS OCC; LYMPHOCYTES 12 % (15-50); MONOCYTES 9 % (2-11); NEUTROPHILS 74 % (40-80); PLATELET ESTIMATE NORMAL; ROULEAUX OCC
--- NOTE | 2019-07-24 13:00 | NUR ---
PT TRANSPORTED TO ROOM #2303 VIA STRETCHER WITH RN AND RT. CONDITION STABLE. LR AND AZITHROMYCIN INFUSING UPON TX TO ROOM
--- NOTE | 2019-07-24 13:08 | NUR ---
PT ARRIVED IN THE UNIT. HOOKED TO ICU MONITORS. PT DYSPNIC AND ON BIPAP AT 70%. SINUS TACH ON THE MONITOR. O2 READING HARD TO ANNALYZE ON THE MONITOR DUE TO EXESSIVE MOVEMENT AND BAD WAVE FORM. ABG ORDERED. RT AT THE PTS BEDSIDE. LEFT WRIST 18 GAUGE NOTED WITH NO S/SX OF INFILTRATION. CRACKLES AND WHEEZING NOTED THROUOUT BOTH LUNGS. PT A&O X4. CALL LIGHT IN REACH. WILL CONT POC.
--- NOTE | 2019-07-24 13:15 | NUR ---
DR KRUSE AT THE PTS BEDSIDE.
--- NOTE | 2019-07-24 13:20 | NUR ---
ABG RESULTS REVIEWED BY DR KRUSE. FIO2 DECREASED TO 50% PER DR KRUSE. SPO2 ON THE MONITOR GOOD WAVE FORM AND 99%. WILL CONT POC.
[2019-07-24 13:43] LABS: APPEARANCE CLEAR (CLEAR); COLOR YELLOW (YELLOW); NITRITE NEGATIVE (NEGATIVE); PROTEIN 1+ mg/dL (NEGATIVE); SPECIFIC GRAVITY 1.015 (1.005-1.020)
[2019-07-24 13:44] LABS: BILIRUBIN NEGATIVE (NEGATIVE); GLUCOSE 1000 mg/dL (NEGATIVE); KETONE MODERATE mg/dL (NEGATIVE); UROBILINOGEN NORMAL (NORMAL)
[2019-07-24 13:46] LABS: BACTERIA FEW /hpf (NEGATIVE); EPITHELIAL CELLS OCC /hpf (0-5); RED CELLS - URINE 0-5 /hpf (0-5); WHITE CELLS - URINE RARE /hpf (NEGATIVE)
--- NOTE | 2019-07-24 14:08 | MORECARE ---
CASE MANAGEMENT DISCHARGE SUMMARY PATIENT: CHELSEA DESAI UNIT: [id number] ADM DATE: 07/24/19 AGE: 68 : 49 SEX: M ROOM/BED: D.2303 AUTHOR: DANILODOC PHYSICIAN: REFERRING PHYSICIAN: KEN BARROSO MD DATE OF SERVICE: 07/24/19 Discharge Plan Patient Name: CHELSEA DESAI Facility: [facility]:[place] : 1950 Planned Disposition: Home Anticipated Discharge Date: 07/19/19 Discharge Date: Expected LOS: -5 Initial Reviewer: [email or web address] Initial Review Date: 07/24/2019 Generated: 07/24/19 3:07 pm DCP- Discharge Planning Updated by [email or web address]: Michelle Florez on 07/24/19 1:[address] DC PLAN: Return home with . ANTICIPATED DC NEEDS: denied known dc needs at time of assessment in the ER. CM met with patient and his , Anaid, to complete initial dc planning assessment. CM educated patient and his on the CM role and verbal consent given by patient to complete assessment. Patient on BIPAP in the ER so completed assessment. CM verified patient's address, phone number, and emergency contact phone numbers. Patient lives at home with his . Anaid reports the patient is independent and able to care for himself. He does not use assistive devices for ambulation. He has home oxygen with portability, nebulizer, glucometer, and pulse ox. His dme company is [employer]. At discharge patient plans to return home and he and his feel this is a safe discharge. CM discussed availability of home health, rehab services, and medical equipment. Patient's does not anticipate dc needs or services at this time. Transportation provider at discharge will be his . CM will continue to follow and will assist as needed with dc plans/needs. Michelle Florez RN, [facility] DCPIA - Discharge Planning Initial Assessment Updated by [email or web address]: Michelle Florez on 07/24/19 2:00 pm * Is the patient Alert and Oriented? Yes * How many steps to enter\exit or inside your home? None * PCP Dr. Bell * Pharmacy [facility] in [place] * Preadmission Environment Home with Family * ADLs Independent * Equipment Glucometer Nebulizer Oxygen * Other Equipment Blood pressure machine * List name and contact numbers for known caregivers / representatives who currently or will assist patient after discharge: Anaid Desai - - [phone] * Verbal permission to speak to the caregivers and representatives has been obtained from the patient. Yes * Community resources currently utilized None * Additional services required to return to the preadmission environment? No * Can the patient safely return to the preadmission environment? Yes * Has this patient been hospitalized within the prior 30 days at any hospital? No Patient Name: CHELSEA DESAI Page 53213 at 1408 All edits/amendments must be made on the electronic document DICTATION DATE: 07/24/191406 HOSE COUPLING JOINER: NICOL 07/24/191406 RPT#: [id number] DC DATE: STATUS: ADM IN [facility] [address] [place] [address] END OF REPORT
[2019-07-24 14:20] LABS: CKMB 1.5 U/L (0.0-3.6); CREATINE KINASE 69 UL (21-232); TROPONIN-I < 0.017 ng/mL (0.000-0.060)
--- NOTE | 2019-07-24 14:21 | NUR ---
START D51/2NS AT 75 ONCE LR BAG IS COMPLETED FROM THE ER.
--- NOTE | 2019-07-24 14:22 | NUR ---
KEEP PT NPO PER DR KRUSE
--- NOTE | 2019-07-24 18:28 | NUR ---
PT REMAINS ON BIPAP RESTING WITH HIS EYES CLOSED. VSS. CALL LIGHT IN REACH. WILL CONT POC.
--- NOTE | 2019-07-24 19:00 | NUR ---
BEDSIDE REPORT AND SHIFT ASSESSMENT COMPLETE, SEE FLOWSHEET. VSS, NO SIGNS OF ACUTE DISTRESS NOTED. 02 SAT 95 ON 50% BIPAP. SINUS TACH ON MONITOR, RATE 105. PT REQUESTING WATER, INFORMED HIM OF NPO STATUS. DENIES ANY OTHER NEEDS AT THIS TIME. WILL CONTINUE TO MONITOR.
--- NOTE | 2019-07-24 21:00 | NUR ---
PAGED DR BARROSO REGARDING HOME MEDS AND NPO STATUS. AWAITING RETURN CALL.
--- NOTE | 2019-07-24 21:20 | NUR ---
RE-PAGED [facility] [employer] TUB OPERATOR PHYSICIAN.
[2019-07-24 21:35] LABS: CKMB 1.6 U/L (0.0-3.6); CREATINE KINASE 62 UL (21-232); TROPONIN-I < 0.017 ng/mL (0.000-0.060)
--- NOTE | 2019-07-24 21:45 | NUR ---
LITER BAG OF LR FINISHED, CHANGED IVF TO D5 1/2 NS @ 75 PER ORDERS. PT SAT 100% ON 50% BIPAP, PLACED ON 6L NC SAT 100%. WILL PLACE BIPAP BACK ON AT BEDTIME.
--- NOTE | 2019-07-24 23:00 | NUR ---
REASSESSMENT COMPLETE, SEE FLOWSHEET. VSS, NO SIGNS OF ACUTE DISTRESS NOTED. O2 SAT 97 ON 6L NC. PT DENIES ANY SOB. WILL CONTINUE TO MONITOR.
--- NOTE | 2019-07-24 23:30 | NUR ---
C/O BACK PAIN. TYLER REYNOSO APN NOTIFIED. NEW ORDERS RECEIVED. OK'D SIPS WITH MEDS UNLESS N/V OR COUGHING.
--- NOTE | 2019-07-24 23:45 | NUR ---
PRN MORPHINE GIVEN FOR PAIN. O2 SAT [address] BIPAP BACK ON PT FOR BEDTIME. DENIES ANY OTHER NEEDS AT THIS TIME, WILL CONTINUE TO MONITOR.
[2019-07-25] VITALS (24 sets, daily range): BP systolic 92–145; BP diastolic 57–88
--- NOTE | 2019-07-25 01:00 | NUR ---
PT RESTING. O2 SAT 100% ON 50% BIPAP. WILL CONTINUE TO MONITOR.
--- NOTE | 2019-07-25 03:00 | NUR ---
REASSESSMENT COMPLETE, SEE FLOWSHEET. VSS.
[2019-07-25 04:55] LABS: BASOPHILS 0.1 % (0-2); EOSINOPHILS 0 % (0-7); HEMATOCRIT 46.3 % (42.0-54.0); HEMOGLOBIN 14.3 g/dL (13.5-17.5); IMMATURE GRANULOCYTES 0.3 % (0-5); LYMPHOCYTES 5.2 % (15-50); MCH 23.2 pg (26.0-34.0); MCHC 30.9 g/dL (31.0-37.0); MCV 75.2 fL (80.0-100.0); MONOCYTES 5.3 % (2-11); NEUTROPHILS 89.1 % (40-80); PLATELET COUNT 248 10x3/uL (130-400); RBC 6.16 10x6/uL (4.20-6.10)
[2019-07-25 05:04] LABS: WBC 19.5 10x3/uL (4.8-10.8)
[2019-07-25 05:18] LABS: ALKALINE PHOSPHATASE 60 U/L (46-116); ALT (SGPT) 17 U/L (10-68); BILIRUBIN - TOTAL 0.39 mg/dL (0.2-1.3); CARBON DIOXIDE 26.2 mmol/L (21.0-32.0); CHLORIDE - SERUM 100 mmol/L (98-107); PROTEIN - SERUM 6.9 g/dL (6.4-8.2); SODIUM 141 mmol/L (136-145); eGFR NON AFRICAN AMERICAN 79 mL/min (90-120)
[2019-07-25 05:23] LABS: ALBUMIN 3.2 g/dL (3.4-5.0); CALC OSMOLALITY 291 mosm/kg (275-300); GLUCOSE 202 mg/dL (74-106); POTASSIUM - SERUM 3.9 mmol/L (3.5-5.1); UREA NITROGEN 26 mg/dL (7-18)
--- NOTE | 2019-07-25 14:06 | NUR ---
IVF CHANGED TO 1/2 NS AT 50 CC/HR, BIPAP OFF AND LUNCH TRAY TO BEDSIDE, INDEPENDENT WITH SET UP AND EATING
--- NOTE | 2019-07-25 15:30 | NUR ---
PC FROM DR VIDES DISCUSSED HR UP IN 120'S, NEW ORDER FOR METOPROLOL 12.5 MG BID PO GIVEN,
--- NOTE | 2019-07-25 16:50 | NUR ---
BIPAP OFF AND 6 L NC INTITIATED FOR EATING, AT BEDSIDE, ASSISTING WITH MEAL
--- NOTE | 2019-07-25 20:55 | NUR ---
HS MEDS GIVEN WITH FRESH WATER. PT REPOSITIONED IN BED FOR COMFORT. BIPAP PLACED ON PT. RESTING QUIETLY. VSS, CPOC.
--- NOTE | 2019-07-25 23:20 | NUR ---
REASSESSMENT COMPLETE, NO CHANGES AT THIS TIME. PT REPOSITIONED FOR COMFORT. PARTIAL LINEN CHANGE PROVIDED. BIPAP IN PLACE, VSS, NO COMPLAINTS AT THIS TIME. CALL LIGHT WITHIN PT REACH. CPOC.
[2019-07-26] VITALS (22 sets, daily range): BP systolic 101–188; BP diastolic 60–101
--- NOTE | 2019-07-26 01:18 | NUR ---
PT SLEEPING QUIETLY WITH VSS, REPOSITIONED SELF INDEPENDENTLY. CALL LIGHT WITHIN PT REACH. CPOC.
--- NOTE | 2019-07-26 03:06 | NUR ---
REASSESSMENT COMPLETE, NO NEW CHANGES AT THIS TIME. PT REPOSITIONED FOR COMFORT. BIPAP IN PLACE, VSS, NO C/O PAIN. CALL LIGHT WITHIN PT REACH. CPOC.
--- NOTE | 2019-07-26 07:00 | NUR ---
REC'D REPORT AND RESUMED CARE, AAO, VSS, ASSESSMENT COMPLETED PER FLOWSHEET, CALL LIGHT IN REACH, O2 VIA NC AT 7L [place] BREATHING NOTED, SAT 96%, NO NEEDS AT THIS TIME
--- NOTE | 2019-07-26 07:30 | NUR ---
BREAKFAST TRAY TO BEDSIDE, INDEPENDENT WITH EATING
--- NOTE | 2019-07-26 08:15 | NUR ---
AT BEDSIDE, ASSISTING WITH BATH AND ORAL CARE
--- NOTE | 2019-07-26 11:00 | NUR ---
RESTING QUIELTY WATCHING TV, VSS, NO ACUTE CHANGE FROM PREVIOUS ASSESSMENT. CALL LIGHT IN REACH
--- NOTE | 2019-07-26 11:30 | NUR ---
IS AND FLUTTER VALVE TO BEDSIDE, EDUCATION AND INSTRUCTIONS GIVEN, VERBALIZED UNDERSTANDING
--- NOTE | 2019-07-26 12:15 | NUR ---
LUNCH TRAY TO BEDSIDE, INDEPENDENT WITH SET UP AND EATING
--- NOTE | 2019-07-26 13:00 | NUR ---
Nutrition follow-up: Diet: Consistent CHO mechanical soft PO Intake fair at this time; helping with meals Labs reviewed Wt: 196# RDN following.
--- NOTE | 2019-07-26 16:16 | MORECARE ---
CASE MANAGEMENT DISCHARGE SUMMARY PATIENT: CHELSEA DESAI UNIT: [id number] ADM DATE: 07/24/19 AGE: 68 : 49 SEX: M ROOM/BED: D.2303 AUTHOR: DANILO,DOC PHYSICIAN: REFERRING PHYSICIAN: KEN BARROSO MD DATE OF SERVICE: 07/26/19 Discharge Plan Patient Name: CHELSEA DESAI Facility: [facility]:[place] : 1950 Planned Disposition: Home Anticipated Discharge Date: 07/19/19 Discharge Date: Expected LOS: -5 Initial Reviewer: [email or web address] Initial Review Date: 07/24/2019 Generated: 07/26/19 5:15 pm Comments DCP- Discharge Planning Updated by [email or web address]: Arianna Canada on 07/26/19 3:[address] DC PLAN: Return home with . ANTICIPATED DC NEEDS: denied known dc needs at time of assessment in the ER. CM met with patient and his , Anaid, to complete initial dc planning assessment. CM educated patient and his on the CM role and verbal consent given by patient to complete assessment. Patient on BIPAP in the ER so completed assessment. CM verified patient's address, phone number, and emergency contact phone numbers. Patient lives at home with his . Anaid reports the patient is independent and able to care for himself. He does not use assistive devices for ambulation. He has home oxygen with portability, nebulizer, glucometer, and pulse ox. His dme company is [employer]. At discharge patient plans to return home and he and his feel this is a safe discharge. CM discussed availability of home health, rehab services, and medical equipment. Patient's does not anticipate dc needs or services at this time. Transportation provider at discharge will be his . CM will continue to follow and will assist as needed with dc plans/needs. Michelle Florez RN, [facility] DCPIA - Discharge Planning Initial Assessment Updated by [email or web address]: Michelle Florez on 07/24/19 2:00 pm * Is the patient Alert and Oriented? Yes * How many steps to enter\exit or inside your home? None * PCP Dr. Bell * Pharmacy [facility] in [place] * Preadmission Environment Home with Family * ADLs Independent * Equipment Glucometer Nebulizer Oxygen * Other Equipment Blood pressure machine * List name and contact numbers for known caregivers / representatives who currently or will assist patient after discharge: Anaid Desai - - [phone] * Verbal permission to speak to the caregivers and representatives has been obtained from the patient. Yes * Community resources currently utilized None * Additional services required to return to the preadmission environment? No * Can the patient safely return to the preadmission environment? Yes * Has this patient been hospitalized within the prior 30 days at any hospital? No Last DP export: 07/24/19 1:08 pm Patient Name: CHELSEA DESAI Page 63610 at 1616 All edits/amendments must be made on the electronic document DICTATION DATE: 07/26/191614 OPERATIONS SUPPORT SPECIALIST: NICOL 07/26/191614 RPT#: [id number] DC DATE: STATUS: ADM IN [facility] [address] [place] [address] END OF REPORT
--- NOTE | 2019-07-26 16:40 | MORECARE ---
CASE MANAGEMENT DISCHARGE SUMMARY PATIENT: CHELSEA DESAI UNIT: [id number] ADM DATE: 07/24/19 AGE: 68 : 49 SEX: M ROOM/BED: D.2303 AUTHOR: DANILO,DOC PHYSICIAN: REFERRING PHYSICIAN: KEN BARROSO MD DATE OF SERVICE: 07/26/19 Discharge Plan Patient Name: CHELSEA DESAI Facility: [facility]:[place] : 1950 Planned Disposition: Home Anticipated Discharge Date: 07/19/19 Discharge Date: Expected LOS: -5 Initial Reviewer: [email or web address] Initial Review Date: 07/24/2019 Generated: 07/26/19 5:40 pm Comments DCP- Discharge Planning Updated by [email or web address]: Arianna Canada on 07/26/19 3:[address] DC PLAN: Return home with . ANTICIPATED DC NEEDS: denied known dc needs at time of assessment in the ER. CM met with patient and his , Anaid, to complete initial dc planning assessment. CM educated patient and his on the CM role and verbal consent given by patient to complete assessment. Patient on BIPAP in the ER so completed assessment. CM verified patient's address, phone number, and emergency contact phone numbers. Patient lives at home with his . Anaid reports the patient is independent and able to care for himself. He does not use assistive devices for ambulation. He has home oxygen with portability, nebulizer, glucometer, and pulse ox. His dme company is [employer]. At discharge patient plans to return home and he and his feel this is a safe discharge. CM discussed availability of home health, rehab services, and medical equipment. Patient's does not anticipate dc needs or services at this time. Transportation provider at discharge will be his . CM will continue to follow and will assist as needed with dc plans/needs. Michelle Florez RN, [facility] DCPIA - Discharge Planning Initial Assessment Updated by [email or web address]: Michelle Florez on 07/24/19 2:00 pm * Is the patient Alert and Oriented? Yes * How many steps to enter\exit or inside your home? None * PCP Dr. Bell * Pharmacy [facility] in [place] * Preadmission Environment Home with Family * ADLs Independent * Equipment Glucometer Nebulizer Oxygen * Other Equipment Blood pressure machine * List name and contact numbers for known caregivers / representatives who currently or will assist patient after discharge: Anaid Desai - - [phone] * Verbal permission to speak to the caregivers and representatives has been obtained from the patient. Yes * Community resources currently utilized None * Additional services required to return to the preadmission environment? No * Can the patient safely return to the preadmission environment? Yes * Has this patient been hospitalized within the prior 30 days at any hospital? No External Providers [facility] Provider[facility] Contact Date: 07/26/2019 Service Request Date: Service Type: Resolution: Reviewer: Comments: Last DP export: 07/26/19 3:16 pm Patient Name: CHELSEA DESAI Page [id number] at 1640 All edits/amendments must be made on the electronic document DICTATION DATE: 07/26/19 1640 FOUNDRY ENGINEER: NICOL 07/26/19 1640 RPT#: [id number] DC DATE: STATUS: ADM IN [facility] [address] [place] [address] END OF REPORT
--- NOTE | 2019-07-26 16:55 | MORECARE ---
CASE MANAGEMENT DISCHARGE SUMMARY PATIENT: CHELSEA DESAI UNIT: [id number] ADM DATE: 07/24/19 AGE: 68 : 49 SEX: M ROOM/BED: D.2303 AUTHOR: DANILODOC PHYSICIAN: REFERRING PHYSICIAN: KEN BARROSO MD DATE OF SERVICE: 07/26/19 Discharge Plan Patient Name: CHELSEA DESAI Facility: [facility]:[place] : 1950 Planned Disposition: Home Anticipated Discharge Date: 07/19/19 Discharge Date: Expected LOS: -5 Initial Reviewer: [email or web address] Initial Review Date: 07/24/2019 Generated: 07/26/19 5:55 pm Comments DCP- Discharge Planning Updated by [id number]: Arianna Canada on 07/26/19 3:[address] CM received call from Dr. Norman this am in regards to patient needing Trilogy upon discharge. CM spoke with family DOMINGO signed for [facility] . CM contacted Harry with [facility] and faxed records. CM will continue to follow and assist as needed with discharge planning/ needs. DCP- Discharge Planning Updated by [email or web address]: Arianna Canada on 07/26/19 3:[address] DC PLAN: Return home with . ANTICIPATED DC NEEDS: denied known dc needs at time of assessment in the ER. CM met with patient and his , Anaid, to complete initial dc planning assessment. CM educated patient and his on the CM role and verbal consent given by patient to complete assessment. Patient on BIPAP in the ER so completed assessment. CM verified patient's address, phone number, and emergency contact phone numbers. Patient lives at home with his . Anaid reports the patient is independent and able to care for himself. He does not use assistive devices for ambulation. He has home oxygen with portability, nebulizer, glucometer, and pulse ox. His dme company is [employer]. At discharge patient plans to return home and he and his feel this is a safe discharge. CM discussed availability of home health, rehab services, and medical equipment. Patient's does not anticipate dc needs or services at this time. Transportation provider at discharge will be his . CM will continue to follow and will assist as needed with dc plans/needs. Michelle Florez RN, [facility] DCPIA - Discharge Planning Initial Assessment Updated by [id number]: Michelle Florez on 07/24/19 2:00 pm * Is the patient Alert and Oriented? Yes * How many steps to enter\exit or inside your home? None * PCP Dr. Bell * Pharmacy [facility] in [place] * Preadmission Environment Home with Family * ADLs Independent * Equipment Glucometer Nebulizer Oxygen * Other Equipment Blood pressure machine * List name and contact numbers for known caregivers / representatives who currently or will assist patient after discharge: Anaid Desai - - [phone] * Verbal permission to speak to the caregivers and representatives has been obtained from the patient. Yes * Community resources currently utilized None * Additional services required to return to the preadmission environment? No * Can the patient safely return to the preadmission environment? Yes * Has this patient been hospitalized within the prior 30 days at any hospital? No Coverage Notice Reviewer: [email or web address] Jayshree [place] Notice Issued Date-Time: 07/26/2019 16:40 Notice Type: Patient Choice Letter Notice Delivered To: Patient Relationship to Patient: Self Event Decorator Name: Delivery Method: HAND - Hand Delivered Sheeba Days: Prior Verbal Notification: Recipient Understood Notice: Yes Recipient Signature: Yes Med Rec Note Co-signed by Attending: Coverage Notice Comment: ZULMA CAMPOS export: 07/26/19 3:40 pm Patient Name: CHELSEA DESAI Page [phone] at 1655 All edits/amendments must be made on the electronic document DICTATION DATE: 07/26/191654 ELECTRICAL PROSPECTING OPERATOR: NICOL 07/26/191654 RPT#: [id number] DC DATE: STATUS: ADM IN [facility] [address] [place] [address] END OF REPORT
[2019-07-26 17:49] LABS: HEMATOCRIT 47.2 % (42.0-54.0); HEMOGLOBIN 14.7 g/dL (13.5-17.5); MCH 23.1 pg (26.0-34.0); MCHC 31.1 g/dL (31.0-37.0); MCV 74.3 fL (80.0-100.0); MEAN PLATELET VOLUME 9.3 fL (7.4-10.4); PLATELET COUNT 260 10x3/uL (130-400); RBC 6.35 10x6/uL (4.20-6.10); RDW 21.6 % (11.5-14.5); WBC 21.1 10x3/uL (4.8-10.8)
[2019-07-26 18:41] LABS: ALBUMIN 3.6 g/dL (3.4-5.0); ANION GAP 12.7 mmol/L (8-16); BILIRUBIN - TOTAL 0.26 mg/dL (0.2-1.3); CALCIUM 9.2 mg/dL (8.5-10.1); CARBON DIOXIDE 30.6 mmol/L (21.0-32.0); CREATININE - SERUM 1.1 mg/dL (0.6-1.3); POTASSIUM - SERUM 4.3 mmol/L (3.5-5.1); PROTEIN - SERUM 6.9 g/dL (6.4-8.2)
[2019-07-26 18:49] LABS: LYMPHOCYTES 4 % (15-50); MONOCYTES 3 % (2-11); NEUTROPHILS 93 % (40-80); PLATELET ESTIMATE NORMAL
--- NOTE | 2019-07-26 19:00 | NUR ---
UP IN BED WITH TELEVISION ON, PLEASANT MOOD AND AFFECT. ALERT AND ORIENTED. ABLE TO VOICE ALL NEEDS. SHOWS NO S/S OF ANY ACUTE DISTRESS. DENIES PAIN AT THIS TIME.
--- NOTE | 2019-07-26 21:00 | NUR ---
IN BED WITH TELEVISION ON, PLEASANTRIES EXCHANGED. VSS. NO S/S OF ANY ACUTE DISTRESS. WILL CONTINUE TO FOLLOW PLAN OF CARE.
[2019-07-27] VITALS (8 sets, daily range): BP systolic 112–148; BP diastolic 80–89
--- NOTE | 2019-07-27 03:30 | NUR ---
COMPLAINS OF PAIN TO BACK AND LEGS, REQUESTS HYDRO 10, EXPLAIN I HAVE TYLENOL AND MORPHINE TO OFFER HIM, HE SAID THE PAIN WAS STRONG, MORPHINE GIVEN. WILL NOTE ANY CHANGE.
[2019-07-27 05:28] LABS: ALBUMIN 3.2 g/dL (3.4-5.0); ALKALINE PHOSPHATASE 60 U/L (46-116); ALT (SGPT) 19 U/L (10-68); BILIRUBIN - TOTAL 0.23 mg/dL (0.2-1.3); CALC OSMOLALITY 296 mosm/kg (275-300); CARBON DIOXIDE 34.1 mmol/L (21.0-32.0); CHLORIDE - SERUM 104 mmol/L (98-107); GLUCOSE 238 mg/dL (74-106); POTASSIUM - SERUM 4.3 mmol/L (3.5-5.1); PROTEIN - SERUM 6.6 g/dL (6.4-8.2); SODIUM 143 mmol/L (136-145); UREA NITROGEN 25 mg/dL (7-18)
[2019-07-27 05:29] LABS: CREATININE - SERUM 0.8 mg/dL (0.6-1.3); eGFR NON AFRICAN AMERICAN > 90 mL/min (90-120)
[2019-07-27 05:57] LABS: BASOPHILS 0.1 % (0-2); EOSINOPHILS 0 % (0-7); HEMATOCRIT 45.6 % (42.0-54.0); IMMATURE GRANULOCYTES 0.5 % (0-5); LYMPHOCYTES 5.1 % (15-50); MCH 23.2 pg (26.0-34.0); MCHC 30.7 g/dL (31.0-37.0); MCV 75.6 fL (80.0-100.0); MONOCYTES 5.6 % (2-11); NEUTROPHILS 88.7 % (40-80); PLATELET COUNT 222 10x3/uL (130-400); RBC 6.03 10x6/uL (4.20-6.10); RDW 21.6 % (11.5-14.5)
[2019-07-27 05:58] LABS: WBC 15.2 10x3/uL (4.8-10.8)
--- NOTE | 2019-07-27 07:39 | NUR ---
AWAKE AND ALERT SITTING UP IN BED. STATES HE IS NOT HAVING ENOUGH PAIN TO COMPLAINT ABOUT IT. SKIN WARM AND DRY. BILATERAL LUNG SOUNDS TIGHT AND DIMINISHED. ON 7 LITERS HIGH FLOW NC. MONITOR SR. NO DISTRESS. IV LEFT FOREARM SALINE LOCK NO REDNESS OR SWELLING NOTED. BREAKFAST TRAY SERVED
--- NOTE | 2019-07-27 09:30 | NUR ---
UP TO CHAIR AT BEDSIDE, SOME LIGHTHEADNESS. TOLERATED FAIR. PULSE OX DROPPED TO 87% BUT QUICKLY RETURNED TO GREATER THAN 92%.
--- NOTE | 2019-07-27 10:30 | NUR ---
RETURNED TO BED. RESTING COMFORTABLY. NO DISTRESS
--- NOTE | 2019-07-27 11:30 | NUR ---
LUNCH SERVED ATE WELL. NO DISTRESS.
--- NOTE | 2019-07-27 12:59 | NUR ---
AT BEDSIDE UPDATE GIVEN. PATIENT WATCHING TV NO DISTRESS
--- NOTE | 2019-07-27 15:09 | MORECARE ---
CASE MANAGEMENT DISCHARGE SUMMARY PATIENT: CHELSEA DESAI UNIT: [id number] ADM DATE: 07/24/19 AGE: 68 : 49 SEX: M ROOM/BED: D.2303 AUTHOR: DANILO,DOC PHYSICIAN: REFERRING PHYSICIAN: KEN BARROSO MD DATE OF SERVICE: 07/27/19 Discharge Plan Patient Name: CHELSEA DESAI Facility: [facility]:[place] : 1950 Planned Disposition: Home Anticipated Discharge Date: 07/19/19 Discharge Date: Expected LOS: -5 Initial Reviewer: [email or web address] Initial Review Date: 07/24/2019 Generated: 07/27/19 4:08 pm Comments DCP- Discharge Planning Updated by [email or web address]: Arianna Canada on 07/27/19 2:[address] CM spoke with Harry from [facility]. Khalida stated they are sending off paperwork today for auth from insurance for Trilogy. CM will continue to follow and assist as needed with discharge planning / needs. DCP- Discharge Planning Updated by [email or web address]: Arianna Canada on 07/26/19 3:[address] CM received call from Dr. Norman this in regards to patient needing Trilogy upon discharge. CM spoke with family DOMINGO signed for [facility] . CM contacted Harry with [facility] and faxed records. CM will continue to follow and assist as needed with discharge planning/ needs. DCP- Discharge Planning Updated by [email or web address]: Arianna Canada on 07/26/19 3:[address] DC PLAN: Return home with . ANTICIPATED DC NEEDS: denied known dc needs at time of assessment in the ER. CM met with patient and his , Anaid, to complete initial dc planning assessment. CM educated patient and his on the CM role and verbal consent given by patient to complete assessment. Patient on BIPAP in the ER so completed assessment. CM verified patient's address, phone number, and emergency contact phone numbers. Patient lives at home with his . Anaid reports the patient is independent and able to care for himself. He does not use assistive devices for ambulation. He has home oxygen with portability, nebulizer, glucometer, and pulse ox. His [employer] company is [employer]. At discharge patient plans to return home and he and his feel this is a safe discharge. CM discussed availability of home health, rehab services, and medical equipment. Patient's does not anticipate dc needs or services at this time. Transportation provider at discharge will be his . CM will continue to follow and will assist as needed with dc plans/needs. Michelle Florez RN, [facility] DCPIA - Discharge Planning Initial Assessment Updated by [id number]: Michelle Florez on 07/24/19 2:00 pm * Is the patient Alert and Oriented? Yes * How many steps to enter\exit or inside your home? None * PCP Dr. Bell * Pharmacy [facility] in [place] * Preadmission Environment Home with Family * ADLs Independent * Equipment Glucometer Nebulizer Oxygen * Other Equipment Blood pressure machine * List name and contact numbers for known caregivers / representatives who currently or will assist patient after discharge: Anaid Desai - - [phone] * Verbal permission to speak to the caregivers and representatives has been obtained from the patient. Yes * Community resources currently utilized None * Additional services required to return to the preadmission environment? No * Can the patient safely return to the preadmission environment? Yes * Has this patient been hospitalized within the prior 30 days at any hospital? No Coverage Notice Reviewer: [id number] Jayshree [place] Notice Issued Date-Time: 07/26/2019 16:40 Notice Type: Patient Choice Letter Notice Delivered To: Patient Relationship to Patient: Self Aerospace Assembler Name: Delivery Method: HAND - Hand Delivered Sheeba Days: Prior Verbal Notification: Recipient Understood Notice: Yes Recipient Signature: Yes Med Rec Note Co-signed by Attending: Coverage Notice Comment: ZULMA - KIM Last DP export: 07/26/19 3:55 pm Patient Name: CHELSEA DESAI Page [phone] at 1509 All edits/amendments must be made on the electronic document DICTATION DATE: 07/27/198 WASHER OFF: NICOL 07/27/19 1508 RPT#: [id number] DC DATE: STATUS: ADM IN [facility] [address] [id number] END OF REPORT
--- NOTE | 2019-07-27 16:53 | NUR ---
SUPER TRAY SERVED. TALKATIVE FREINDLY NO DISTRESS. NO RESP DISTRESS TODAY. GOOD APPETITE.
--- NOTE | 2019-07-27 19:00 | NUR ---
REPORT REC'D, ASSUMED PT'S CARE. ASSESSMENT COMPLETED PER FLOWSHEETS. PT SITTING UP TO BS, BREATHING RATE TO 40, DYSPNEA NOTED WITH EXERTION. BACK TO BED WITH HOB UP, ENCOUREGED TO TAKE SLOW BREATHE, RR TO 22, O2SAT 97% ON OXYMIZER. SR ON CM WITH HR AT 99. DENIES ANY PAIN AT THIS TIME. CALL LIGHT IN REACH. CONT TO MONITOR.
--- NOTE | 2019-07-27 21:00 | NUR ---
PT LAYING IN BED WITHOUT DISTRESS AT THIS TIME. SCHEDULED MEDS GIVEN PER ORDER. PT NEHA WELL. VSS. CPOC.
--- NOTE | 2019-07-27 23:00 | NUR ---
REASSESSMENT COMPLETED PER FLOWSHEETS. PT ON BIPAP, WITHOUT DISTRESS. VSS. NO NEEDS VOICES AT THIS TIME. CALL LIGHT IN REACH. CPOC.
[2019-07-28] VITALS (8 sets, daily range): BP systolic 126–181; BP diastolic 82–96
--- NOTE | 2019-07-28 01:00 | NUR ---
PT UNABLE TO SLEEP WATCHING TV, VSS. NO NEEDS VOICES. CALL LIGHT IN REACH. CPOC.
--- NOTE | 2019-07-28 03:00 | NUR ---
REASSESSMENT COMPLETED PER FLOWSHEETS. PT RESTING QUIETLY WITHOUT DISTRESS AT THIS TIME .VSS. NO COMPLAINTS AT THIS TIME. CALL LIGHT IN REACH. HOB UP. SIDE RAILS UP. CPOC.
[2019-07-28 03:24] LABS: BASOPHILS 0.1 % (0-2); EOSINOPHILS 0 % (0-7); HEMATOCRIT 42.6 % (42.0-54.0); HEMOGLOBIN 13.4 g/dL (13.5-17.5); IMMATURE GRANULOCYTES 0.4 % (0-5); LYMPHOCYTES 6.3 % (15-50); MCH 23.3 pg (26.0-34.0); MCHC 31.5 g/dL (31.0-37.0); MCV 74.2 fL (80.0-100.0); MEAN PLATELET VOLUME 9.4 fL (7.4-10.4); MONOCYTES 8.4 % (2-11); NEUTROPHILS 84.8 % (40-80); PLATELET COUNT 253 10x3/uL (130-400); RBC 5.74 10x6/uL (4.20-6.10); RDW 21.1 % (11.5-14.5); WBC 10.6 10x3/uL (4.8-10.8)
[2019-07-28 03:39] LABS: ALBUMIN 2.9 g/dL (3.4-5.0); ALKALINE PHOSPHATASE 46 U/L (46-116); ALT (SGPT) 21 U/L (10-68); BILIRUBIN - TOTAL 0.22 mg/dL (0.2-1.3); CALC OSMOLALITY 292 mosm/kg (275-300); CALCIUM 8.5 mg/dL (8.5-10.1); CARBON DIOXIDE 34.7 mmol/L (21.0-32.0); CHLORIDE - SERUM 103 mmol/L (98-107); CREATININE - SERUM 0.7 mg/dL (0.6-1.3); GLUCOSE 200 mg/dL (74-106); POTASSIUM - SERUM 3.9 mmol/L (3.5-5.1); PROTEIN - SERUM 6.1 g/dL (6.4-8.2); SODIUM 142 mmol/L (136-145); UREA NITROGEN 24 mg/dL (7-18); eGFR NON AFRICAN AMERICAN > 90 mL/min (90-120)
--- NOTE | 2019-07-28 07:39 | NUR ---
REPORT RECIEVED. PT SITTING ON BEDSIDE. RR EVEN AND UNALBORED ON 7L HF NC. PT STATES HE IS IN NO PAIN THIS MORNING. HE HAS A L FA PIV THAT IS SL. BED LOCKED AND IN LOWEST POSITION, CALL LIGHT WITHIN REACH. WILL CTM.
--- NOTE | 2019-07-28 08:45 | NUR ---
Nutrition follow-up: Diet: Regular PO intake 100% of most meals Bipap in use Labs reviewed Wt: 196# - 2# weight loss noted RDN following.
--- NOTE | 2019-07-28 14:23 | NUR ---
PT RESTING WITH EYES CLOSED AT THIS TIME. NO DISTRESS NOTED. VSS.
--- NOTE | 2019-07-28 16:57 | NUR ---
REPORT CALLED TO ALYSSA ON MED SURG. PT AWARE OF NEW ROOM NUMBER, AND ASK IF WE COULD MOVE HIM AFTER HE GETS DONE EATING.
--- NOTE | 2019-07-28 17:42 | NUR ---
RECEIVED TO ROOM 2222 VIA WC FROM ICU. A/O X3. NO C/O PAIN OR DISCOMFORT AT THIS TIME. SKIN INTACT WITHOUT REDNESS. UP PER SELF. DENIES NEEDS.
--- NOTE | 2019-07-28 19:22 | NUR ---
RESTING QUIETLY IN BED. DENIES NEEDS.
--- NOTE | 2019-07-28 19:30 | NUR ---
A/O WITH NO SIGNS OF ACUTE DISTRESS. IV TO THE LT FOREARM WITH NO REDNESS OR SWELLING NOTED. NC @9L. DENIES NO NEEDS AT THIS TIME. CONTINUE PLAN OF CARE.
[2019-07-29] VITALS: BP 122/68
[2019-07-29 04:00] VITALS: BP 109/65
[2019-07-29 05:40] LABS: BASOPHILS 0.1 % (0-2); EOSINOPHILS 0 % (0-7); HEMATOCRIT 43.6 % (42.0-54.0); HEMOGLOBIN 13.4 g/dL (13.5-17.5); IMMATURE GRANULOCYTES 1.7 % (0-5); LYMPHOCYTES 10.7 % (15-50); MCH 22.9 pg (26.0-34.0); MCHC 30.7 g/dL (31.0-37.0); MCV 74.5 fL (80.0-100.0); MEAN PLATELET VOLUME 9.5 fL (7.4-10.4); MONOCYTES 10.7 % (2-11); NEUTROPHILS 76.8 % (40-80); PLATELET COUNT 240 10x3/uL (130-400); RBC 5.85 10x6/uL (4.20-6.10); RDW 20.7 % (11.5-14.5); WBC 10.2 10x3/uL (4.8-10.8)
[2019-07-29 05:52] LABS: ALBUMIN 2.9 g/dL (3.4-5.0); ALKALINE PHOSPHATASE 45 U/L (46-116); ALT (SGPT) 24 U/L (10-68); BILIRUBIN - TOTAL 0.21 mg/dL (0.2-1.3); CALC OSMOLALITY 291 mosm/kg (275-300); CALCIUM 8.9 mg/dL (8.5-10.1); CARBON DIOXIDE 38.7 mmol/L (21.0-32.0); CHLORIDE - SERUM 103 mmol/L (98-107); CREATININE - SERUM 0.6 mg/dL (0.6-1.3); GLUCOSE 202 mg/dL (74-106); POTASSIUM - SERUM 4.1 mmol/L (3.5-5.1); PROTEIN - SERUM 5.9 g/dL (6.4-8.2); SODIUM 142 mmol/L (136-145); UREA NITROGEN 20 mg/dL (7-18); eGFR NON AFRICAN AMERICAN > 90 mL/min (90-120)
--- NOTE | 2019-07-29 08:00 | NUR ---
ASSESSMENT PER FLOW SHEET. PT IS WITHOUT DISTRESS.CALL LIGHT IN REACH. FAMILY AT BEDSIDE
[2019-07-29 09:13] VITALS: BP 149/99
[2019-07-29 13:38] VITALS: BP 156/102
[2019-07-29 17:12] VITALS: BP 134/77
--- NOTE | 2019-07-29 18:50 | NUR ---
REMAINS WITHOUT CHANGE.CONT PLAN OF CARE
--- NOTE | 2019-07-29 19:00 | NUR ---
BEDSIDE REPORT RECEIVED. PATIENT ALERT AND ORIENTED. CALM AND COOPERATIVE WHEN CONVERSING WITH NURSING STAFF. GRANDSONS IN ROOM TO VISIT. WILL RETURN FOR ASSESSMENT. CPOC.
[2019-07-29 19:30] VITALS: BP 151/92
--- NOTE | 2019-07-29 19:45 | NUR ---
PATIENT SITTING UP IN CHAIR. WEARING 5 L VIA HIGH FLOW CANNULA. WEARING TELE MONITOR. LEFT FOREARM IV THAT IS SALINE LOCKED. HAS INCENTIVE SPIROMETER AND FLUTTER VALVE AT BEDSIDE. PATIENT DENIES NEEDS AT THIS TIME. HAS CALL LIGHT IN REACH AND VERBALIZES HOW TO USE APPROPRIATELY. CPOC.
--- NOTE | 2019-07-29 21:15 | NUR ---
ADMINISTERED HS MEDICATIONS. PATIENT COMPLAINING OF BACK PAIN THAT SHOOTS AND RADIATES DOWN LEFT LEG. REQUESTS PRN PAIN MEDICATION. PROVIDED.
[2019-07-30 00:30] VITALS: BP 148/87
--- NOTE | 2019-07-30 01:54 | NUR ---
RESTING WITH NO SIGNS OR SYMPTOMS OF DISTRESS AT THIS TIME. CPOC.
--- NOTE | 2019-07-30 03:34 | NUR ---
I have reviewed this patient and I concur with the Shift Assessment completed by the Licensed Practical Nurse today this shift.
[2019-07-30 04:59] LABS: BASOPHILS 0.5 % (0-2); EOSINOPHILS 2.2 % (0-7); HEMATOCRIT 46.4 % (42.0-54.0); HEMOGLOBIN 14.5 g/dL (13.5-17.5); IMMATURE GRANULOCYTES 5.5 % (0-5); LYMPHOCYTES 12.1 % (15-50); MCH 23.4 pg (26.0-34.0); MCHC 31.3 g/dL (31.0-37.0); MEAN PLATELET VOLUME 9.4 fL (7.4-10.4); MONOCYTES 17.9 % (2-11); NEUTROPHILS 61.8 % (40-80); PLATELET COUNT 224 10x3/uL (130-400); RBC 6.19 10x6/uL (4.20-6.10); RDW 20.6 % (11.5-14.5)
[2019-07-30 05:11] VITALS: BP 157/90
[2019-07-30 05:22] LABS: ALBUMIN 3.1 g/dL (3.4-5.0); ALKALINE PHOSPHATASE 43 U/L (46-116); ALT (SGPT) 27 U/L (10-68); BILIRUBIN - TOTAL 0.25 mg/dL (0.2-1.3); CALCIUM 8.9 mg/dL (8.5-10.1); CHLORIDE - SERUM 102 mmol/L (98-107); PROTEIN - SERUM 5.9 g/dL (6.4-8.2); SODIUM 142 mmol/L (136-145); UREA NITROGEN 23 mg/dL (7-18)
[2019-07-30 05:35] LABS: CALC OSMOLALITY 288 mosm/kg (275-300); CREATININE - SERUM 0.8 mg/dL (0.6-1.3); GLUCOSE 132 mg/dL (74-106); POTASSIUM - SERUM 3.4 mmol/L (3.5-5.1); eGFR NON AFRICAN AMERICAN > 90 mL/min (90-120)
[2019-07-30 05:36] LABS: CARBON DIOXIDE 41.9 mmol/L (21.0-32.0)
--- NOTE | 2019-07-30 06:02 | NUR ---
INFORMED RESPIRATORY THERAPIST ABOUT CO2. GURVINDER INFORMED THIS NURSE THATS NOT CONSIDERED VERY HIGH BUT THAT SHE WOULD BE TREATING ACCORDINGLY AND THANKED FOR LETTING HER KNOW
--- NOTE | 2019-07-30 08:00 | NUR ---
ASSESSMENT PER FLOW SHEET. PT IS WITHOT DISTRESS.MONITOR FOR NEEDS.
--- NOTE | 2019-07-30 12:46 | NUR ---
HAS HAD SHOWER AND BACK TO BED. BLOOD GLUCOSE HIGH,SEE MAR. STAT LABS ORDERED
--- NOTE | 2019-07-30 19:22 | NUR ---
WALKING IN HALLS,WITHOUT DISTRESS.PT IS WITHOUT CHANGE.CONT PLAN OF CARE
[2019-07-30 19:30] VITALS: BP 134/86
[2019-07-30 21:50] LABS: APPEARANCE CLEAR (CLEAR); BILIRUBIN NEGATIVE (NEGATIVE); COLOR YELLOW (YELLOW); GLUCOSE 500 mg/dL (NEGATIVE); KETONE NEGATIVE (NEGATIVE); NITRITE NEGATIVE (NEGATIVE); PROTEIN NEGATIVE (NEGATIVE); SPECIFIC GRAVITY 1.015 (1.005-1.020); UROBILINOGEN NORMAL (NORMAL)
[2019-07-31 00:42] VITALS: BP 138/82
--- NOTE | 2019-07-31 04:21 | NUR ---
I have reviewed this patient and I concur with the Shift Assessment completed by the Licensed Practical Nurse today this shift.
[2019-07-31 05:13] LABS: BASOPHILS 0.1 % (0-2); EOSINOPHILS 4.4 % (0-7); HEMATOCRIT 45.1 % (42.0-54.0); HEMOGLOBIN 14.1 g/dL (13.5-17.5); IMMATURE GRANULOCYTES 3.7 % (0-5); LYMPHOCYTES 18.8 % (15-50); MCH 23.3 pg (26.0-34.0); MCHC 31.3 g/dL (31.0-37.0); MCV 74.5 fL (80.0-100.0); MEAN PLATELET VOLUME 9.4 fL (7.4-10.4); PLATELET COUNT 259 10x3/uL (130-400); RBC 6.05 10x6/uL (4.20-6.10); RDW 20.6 % (11.5-14.5); WBC 11.5 10x3/uL (4.8-10.8)
[2019-07-31 05:29] LABS: ALBUMIN 2.7 g/dL (3.4-5.0); ALKALINE PHOSPHATASE 42 U/L (46-116); ALT (SGPT) 26 U/L (10-68); BILIRUBIN - TOTAL 0.21 mg/dL (0.2-1.3); CALCIUM 8.5 mg/dL (8.5-10.1); CHLORIDE - SERUM 101 mmol/L (98-107); CREATININE - SERUM 0.8 mg/dL (0.6-1.3); POTASSIUM - SERUM 3.3 mmol/L (3.5-5.1); PROTEIN - SERUM 5.5 g/dL (6.4-8.2); SODIUM 143 mmol/L (136-145); UREA NITROGEN 23 mg/dL (7-18); eGFR NON AFRICAN AMERICAN > 90 mL/min (90-120)
[2019-07-31 05:40] VITALS: BP 141/72
[2019-07-31 05:58] LABS: CALC OSMOLALITY 289 mosm/kg (275-300); GLUCOSE 115 mg/dL (74-106)
[2019-07-31 05:59] LABS: CARBON DIOXIDE 40.2 mmol/L (21.0-32.0)
--- NOTE | 2019-07-31 08:00 | NUR ---
PATIENT SITTING UP IN CHAIR WITH NO COMPLAINTS. ASSESSMENT COMPLETE, VS STABLE. FAMILY AT BEDSIDE. CALL LIGHT WITHIN REACH.
[2019-07-31 09:03] VITALS: BP 145/75
--- NOTE | 2019-07-31 11:57 | NUR ---
PATIENT BEING FITTED FOR HOME TRILOGY. IV INTACT. FAMILY AT BEDSIDE. CALL LIGHT WITHIN REACH.
[2019-07-31 12:45] VITALS: BP 149/95
[2019-07-31 17:21] VITALS: BP 113/70
--- NOTE | 2019-07-31 19:00 | NUR ---
BEDSIDE REPORT RECEIVED. CURRENTLY RECEIVING BREATHING TREATMENT. DENIES NEEDS AT THIS TIME. CPOC.
--- NOTE | 2019-07-31 19:40 | NUR ---
PATIENT UP IN BED WATCHING FOOTBALL. WEARING 5L VIA HIGH FLOW CANNULA AT THIS TIME. PATIENT HAS LEFT FOREARM IV THAT IS SALINE LOCKED. LUNGS PRESENT WITH DIMINISHED SOUNDS BILATERALLY. NO CRACKLES, RALES, OR WHEEZING NOTED, BUT PATIENT DOES HAVE OCCASIONAL PRODUCTIVE COUGH THAT DOES NOT RESULT IN SPUTUM. PATIENT IN GOOD SPIRITS. DENIES PAIN AT THIS TIME. SPOKE WITH PATIENT ABOUT MEDICATIONS THAT WILL BE GIVEN THIS HS SHIFT AND PATIENT PLAN OF CARE. PATIENT VERBALIZES UNDERSTANDING. HAS CALL LIGHT IN HAND. CPOC.
[2019-07-31 20:00] VITALS: BP 131/82
--- NOTE | 2019-07-31 22:44 | NUR ---
PROVIDED PERCOCET FOR COMPLAINTS OF BACK AND SHOOTING LEG PAIN. DENIES FURTHER NEEDS AT THIS TIME. CPOC.
[2019-08-01 00:17] VITALS: BP 144/92
[2019-08-01 04:15] VITALS: BP 117/79
--- NOTE | 2019-08-01 06:20 | NUR ---
I have reviewed this patient and I concur with the Shift Assessment completed by the Licensed Practical Nurse today this shift.
[2019-08-01 06:23] LABS: ALKALINE PHOSPHATASE 42 U/L (46-116); ALT (SGPT) 24 U/L (10-68); CALC OSMOLALITY 287 mosm/kg (275-300); CALCIUM 8.6 mg/dL (8.5-10.1); CARBON DIOXIDE 36.3 mmol/L (21.0-32.0); CHLORIDE - SERUM 101 mmol/L (98-107); CREATININE - SERUM 0.8 mg/dL (0.6-1.3); GLUCOSE 159 mg/dL (74-106); POTASSIUM - SERUM 3.7 mmol/L (3.5-5.1); PROTEIN - SERUM 5.3 g/dL (6.4-8.2); SODIUM 141 mmol/L (136-145); UREA NITROGEN 23 mg/dL (7-18); eGFR NON AFRICAN AMERICAN > 90 mL/min (90-120)
[2019-08-01 07:37] LABS: BASOPHILS 0.1 % (0-2); HEMATOCRIT 43.6 % (42.0-54.0); HEMOGLOBIN 13.6 g/dL (13.5-17.5); IMMATURE GRANULOCYTES 4.1 % (0-5); LYMPHOCYTES 20.7 % (15-50); MCH 23.2 pg (26.0-34.0); MCHC 31.2 g/dL (31.0-37.0); MCV 74.5 fL (80.0-100.0); MEAN PLATELET VOLUME 9.3 fL (7.4-10.4); MONOCYTES 13.9 % (2-11); NEUTROPHILS 56.2 % (40-80); PLATELET COUNT 254 10x3/uL (130-400); RBC 5.85 10x6/uL (4.20-6.10); RDW 20.9 % (11.5-14.5); WBC 9.6 10x3/uL (4.8-10.8)
--- NOTE | 2019-08-01 08:00 | NUR ---
PATIENT SITTING UP IN CHAIR WITH NO COMPLAINTS OR SIGNS OF DISTRESS. IV INTACT. CALL LIGHT WITHIN REACH.
[2019-08-01 09:23] VITALS: BP 123/88
--- NOTE | 2019-08-01 11:39 | MORECARE ---
CASE MANAGEMENT DISCHARGE SUMMARY PATIENT: CHELSEA DESAI UNIT: [id number] ADM DATE: 07/24/19 AGE: 68 : 49 SEX: M ROOM/BED: D.2222 AUTHOR: DANILO,DOC PHYSICIAN: REFERRING PHYSICIAN: KEN BARROSO MD DATE OF SERVICE: 08/01/19 Discharge Plan Patient Name: CHELSEA DESAI Facility: [facility]:[place] : 1950 Planned Disposition: Home Anticipated Discharge Date: 07/19/19 Discharge Date: Expected LOS: -5 Initial Reviewer: [email or web address] Initial Review Date: 07/24/2019 Generated: 08/01/19 12:39 pm Comments DCP- Discharge Planning Updated by [email or web address]: Petty Barber on 08/01/19 10:[address] CM met with patient and in the room. He states he used his trilogy last night and "it worked well." He states he is on 5 liters [place] oxygen while at home. Declines home health. CM will continue to follow and assist with discharge planning/needs. DCP- Discharge Planning Updated by [email or web address]: Arianna Canada on 07/27/19 2:[address] CM spoke with Harry from [facility]. Khalida stated they are sending off paperwork today for auth from insurance for Trilogy. CM will continue to follow and assist as needed with discharge planning / needs. DCP- Discharge Planning Updated by [id number]: Arianna Canada on 07/26/19 3:[address] CM received call from Dr. Norman this in regards to patient needing Trilogy upon discharge. CM spoke with family DOMINGO signed for [facility] . CM contacted Harry with [facility] and faxed records. CM will continue to follow and assist as needed with discharge planning/ needs. DCP- Discharge Planning Updated by [id number]: Arianna Canada on 07/26/19 3:[address] DC PLAN: Return home with . ANTICIPATED DC NEEDS: denied known dc needs at time of assessment in the ER. CM met with patient and his , Anaid, to complete initial dc planning assessment. CM educated patient and his on the CM role and verbal consent given by patient to complete assessment. Patient on BIPAP in the ER so completed assessment. CM verified patient's address, phone number, and emergency contact phone numbers. Patient lives at home with his . Anaid reports the patient is independent and able to care for himself. He does not use assistive devices for ambulation. He has home oxygen with portability, nebulizer, glucometer, and pulse ox. His dme company is [employer]. At discharge patient plans to return home and he and his feel this is a safe discharge. CM discussed availability of home health, rehab services, and medical equipment. Patient's does not anticipate dc needs or services at this time. Transportation provider at discharge will be his . CM will continue to follow and will assist as needed with dc plans/needs. Michelle Florez RN, [facility] DCPIA - Discharge Planning Initial Assessment Updated by [id number]: Michelle Florez on 07/24/19 2:00 pm * Is the patient Alert and Oriented? Yes * How many steps to enter\\exit or inside your home? None * PCP Dr. Bell * Pharmacy [facility] in [place] * Preadmission Environment Home with Family * ADLs Independent * Equipment Glucometer Nebulizer Oxygen * Other Equipment Blood pressure machine * List name and contact numbers for known caregivers / representatives who currently or will assist patient after discharge: Anaid Desai - - [phone] * Verbal permission to speak to the caregivers and representatives has been obtained from the patient. Yes * Community resources currently utilized None * Additional services required to return to the preadmission environment? No * Can the patient safely return to the preadmission environment? Yes * Has this patient been hospitalized within the prior 30 days at any hospital? No Coverage Notice Reviewer: [id number] - Arianna Canada Notice Issued Date-Time: 07/26/2019 16:40 Notice Type: Patient Choice Letter Notice Delivered To: Patient Relationship to Patient: Self Dialysis Equipment Technician Name: Delivery Method: HAND - Hand Delivered Sheeba Days: Prior Verbal Notification: Recipient Understood Notice: Yes Recipient Signature: Yes Med Rec Note Co-signed by Attending: Coverage Notice Comment: ZULMA - KIM Reviewer: [id number] - Petty Barber Notice Issued Date-Time: 08/01/2019 11:33 Notice Type: IM Discharge Notice Notice Delivered To: Patient Relationship to Patient: Self Dialysis Equipment Technician Name: Delivery Method: HAND - Hand Delivered Sheeba Days: Prior Verbal Notification: Recipient Understood Notice: Yes Recipient Signature: Yes Med Rec Note Co-signed by Attending: Coverage Notice Comment: IMM explained, signed, given, copy placed in MR Last DP export: 07/27/19 2:09 pm Patient Name: CHELSEA DESAI Page [phone] at 1139 All edits/amendments must be made on the electronic document DICTATION DATE: 08/01/19 113 DICE MANAGER: NICOL 08/01/19 1139 RPT#: [id number] DC DATE: STATUS: ADM IN [facility] [address] [place] [address] END OF REPORT
[2019-08-01] MEDS ORDERED: PULMICORT0.5 MG/21 UPD (12:13)
[2019-08-01] MEDS ORDERED: LOPRESSOR25 MG PO (12:15)
[2019-08-01] MEDS ORDERED: PREDNISONE10 MG PO (12:17)
[2019-08-01] MEDS ORDERED: FUROSEMIDE20 MG PO (12:18)
[2019-08-01] MEDS ORDERED: OMNICEF300 MG PO (12:19)
[2019-08-01] MEDS ORDERED: AZITHROMYCIN500 MG PO (12:20)
[2019-08-01 13:12] VITALS: BP 120/83
--- NOTE | 2019-08-01 13:42 | MORECARE ---
CASE MANAGEMENT DISCHARGE SUMMARY PATIENT: CHELSEA DESAI UNIT: [id number] ADM DATE: 07/24/19 AGE: 68 : 49 SEX: M ROOM/BED: D.2222 AUTHOR: DANILO,DOC PHYSICIAN: REFERRING PHYSICIAN: KEN BARROSO MD DATE OF SERVICE: 08/01/19 Discharge Plan Patient Name: HCELSEA DESAI Facility: [facility]:[place] : 1950 Planned Disposition: Home Anticipated Discharge Date: 07/19/19 Discharge Date: Expected LOS: -5 Initial Reviewer: [id number] Initial Review Date: 07/24/2019 Generated: 08/01/19 2:42 pm Comments DCP- Discharge Planning Updated by [id number]: Petty Sunil on 08/01/19 12:[address] Patient Name: CHELSEA DESAI Encounter No: [id number] : 1950 Primary Insurance: [employer] CHOICE PPO MCR ADVANT Anticipated DC Date: 07-19-2019 Planned Disposition: Home External Planned Provider: : DCP follow-up note: Patient and family in agreement with discharge plan. No changes to plan. Case management will follow and assist as needed. Petty Hansenlucio DCP- Discharge Planning Updated by [id number]: Petty Barber on 08/01/19 10:[address] CM met with patient and in the room. He states he used his trilogy last night and "it worked well." He states he is on 5 liters [place] oxygen while at home. Declines home health. CM will continue to follow and assist with discharge planning/needs. DCP- Discharge Planning Updated by [id number]: Arianna Canada on 07/27/19 2:[address] CM spoke with Harry from [facility]. Khalida stated they are sending off paperwork today for auth from insurance for Trilogy. CM will continue to follow and assist as needed with discharge planning / needs. DCP- Discharge Planning Updated by [email or web address]: Arianna Canada on 07/26/19 3:[address] CM received call from Dr. Norman this in regards to patient needing Trilogy upon discharge. CM spoke with family DOMINGO signed for [facility] . CM contacted Harry with [employer] and faxed records. CM will continue to follow and assist as needed with discharge planning/ needs. DCP- Discharge Planning Updated by [id number]: Arianna Canada on 07/26/19 3:[address] DC PLAN: Return home with . ANTICIPATED DC NEEDS: denied known dc needs at time of assessment in the ER. CM met with patient and his , Anaid, to complete initial dc planning assessment. CM educated patient and his on the CM role and verbal consent given by patient to complete assessment. Patient on BIPAP in the ER so completed assessment. CM verified patient's address, phone number, and emergency contact phone numbers. Patient lives at home with his . Anaid reports the patient is independent and able to care for himself. He does not use assistive devices for ambulation. He has home oxygen with portability, nebulizer, glucometer, and pulse ox. His dme company is [employer]. At discharge patient plans to return home and he and his feel this is a safe discharge. CM discussed availability of home health, rehab services, and medical equipment. Patient's does not anticipate dc needs or services at this time. Transportation provider at discharge will be his . CM will continue to follow and will assist as needed with dc plans/needs. Michelle Florez RN, [facility] DCPIA - Discharge Planning Initial Assessment Updated by [id number]: Michelle Florez on 07/24/19 2:00 pm * Is the patient Alert and Oriented? Yes * How many steps to enter\\exit or inside your home? None * PCP Dr. Bell * Pharmacy [facility] in [place] * Preadmission Environment Home with Family * ADLs Independent * Equipment Glucometer Nebulizer Oxygen * Other Equipment Blood pressure machine * List name and contact numbers for known caregivers / representatives who currently or will assist patient after discharge: Anaid Desai - - [phone] * Verbal permission to speak to the caregivers and representatives has been obtained from the patient. Yes * Community resources currently utilized None * Additional services required to return to the preadmission environment? No * Can the patient safely return to the preadmission environment? Yes * Has this patient been hospitalized within the prior 30 days at any hospital? No Coverage Notice Reviewer: [id number] - Arianna Canada Notice Issued Date-Time: 07/26/2019 16:40 Notice Type: Patient Choice Letter Notice Delivered To: Patient Relationship to Patient: Self Purchasing Department Clerk Name: Delivery Method: HAND - Hand Delivered Sheeba Days: Prior Verbal Notification: Recipient Understood Notice: Yes Recipient Signature: Yes Med Rec Note Co-signed by Attending: Coverage Notice Comment: ZULMA ALVAREZ Reviewer: [id number] Jayshree Barber Notice Issued Date-Time: 08/01/2019 11:33 Notice Type: IM Discharge Notice Notice Delivered To: Patient Relationship to Patient: Self Purchasing Department Clerk Name: Delivery Method: HAND - Hand Delivered Sheeba Days: Prior Verbal Notification: Recipient Understood Notice: Yes Recipient Signature: Yes Med Rec Note Co-signed by Attending: Coverage Notice Comment: IMM explained, signed, given, copy placed in MR Last DP export: 08/01/19 10:39 a Patient Name: CHELSEA DEASI Page [phone] at 1342 All edits/amendments must be made on the electronic document DICTATION DATE: 08/01/19 1342 ELECTRIC ORGAN CHECKER: NICOL 08/01/19 1342 RPT#: [id number] DC DATE: STATUS: ADM IN [facility] [address] [place] [address] END OF REPORT
--- NOTE | 2019-08-01 14:44 | NUR ---
PATIENT RECIEVED DC INSTRUCTIONS. VERBALIZED UNDERSTANDING. NO QUESTIONS AT THIS TIME. IV REMOVED WITH CATH TIP INTACT. FAMILY AT BEDSIDE. CALL IGHT WITHIN REACH.
== END 2019-08-01 15:00 | disposition home or self-care (01) | DRG 871 ==
LOC: D.ER 09:31 → D.ICU 11:39 → D.ER 12:20 → D.MS 07-28 17:25
PROVIDERS: Family Medicine; ADMIT Family Medicine; ATTEND Family Medicine
DX: A41.9 Sepsis, unspecified organism (principal); J18.9 Pneumonia, unspecified organism; J96.02 Acute respiratory failure with hypercapnia; J96.11 Chronic respiratory failure with hypoxia; E87.6 Hypokalemia; E11.65 Type 2 diabetes mellitus with hyperglycemia; I10 Essential (primary) hypertension; K21.9 Gastro-esophageal reflux disease without esophagitis; D75.1 Secondary polycythemia; K22.70 Barrett's esophagus without dysplasia; M19.90 Unspecified osteoarthritis, unspecified site; N40.0 Benign prostatic hyperplasia without lower urinary tract symptoms; G89.29 Other chronic pain; J43.9 Emphysema, unspecified; G47.33 Obstructive sleep apnea (adult) (pediatric); Z91.19 Patient's noncompliance with other medical treatment and regimen

== ENCOUNTER 2020-02-08 16:33 | Inpatient (IN) | payer MEDICARE ==
[~2020-02-08] VITALS: Ht 188 cm; Wt 95.3 kg
[~2020-02-08 16:33] MED LIST changes: +AZITHROMYCIN500 MG PO; +FLOMAX0.4 MG PO; +FUROSEMIDE20 MG PO; +GABAPENTIN300 MG PO; +LOPRESSOR25 MG PO; +PULMICORT0.5 MG/21 UPD
[2020-02-08 17:14] LABS: BASOPHILS 0.2 % (0-2); HEMATOCRIT 47.5 % (42.0-54.0); HEMOGLOBIN 15.2 g/dL (13.5-17.5); IMMATURE GRANULOCYTES 0.3 % (0-5); LYMPHOCYTES 12.3 % (15-50); MCH 26.7 pg (26.0-34.0); MCV 83.5 fL (80.0-100.0); MEAN PLATELET VOLUME 9.8 fL (7.4-10.4); MONOCYTES 13.3 % (2-11); NEUTROPHILS 72.9 % (40-80); PLATELET COUNT 193 10x3/uL (130-400); RBC 5.69 10x6/uL (4.20-6.10); RDW 15.3 % (11.5-14.5); WBC 11.1 10x3/uL (4.8-10.8)
[2020-02-08 17:23] LABS: APTT 34.3 SECONDS (22.8-39.4); INR 1.14 (0.85-1.17); PROTIME 14.5 SECONDS (11.6-15.0)
[2020-02-08 17:25] LABS: CALC OSMOLALITY 275 mosm/kg (275-300); CALCIUM 9.4 mg/dL (8.5-10.1); CARBON DIOXIDE 32.1 mmol/L (21.0-32.0); CHLORIDE - SERUM 99 mmol/L (98-107); CREATININE - SERUM 1.1 mg/dL (0.6-1.3); GLUCOSE 175 mg/dL (74-106); POTASSIUM - SERUM 3.3 mmol/L (3.5-5.1); SODIUM 136 mmol/L (136-145); UREA NITROGEN 12 mg/dL (7-18); eGFR NON AFRICAN AMERICAN 70 mL/min (90-120)
--- NOTE | 2020-02-08 17:43 | NUR ---
PT : JUSTIN HERNANDEZ [phone]. PER PT [facility] STAFF CAN SPEAK TO ABOUT HEALTH CONDITION OVER PHONE.
[2020-02-08 17:56] LABS: ALBUMIN 3.7 g/dL (3.4-5.0); ALKALINE PHOSPHATASE 55 U/L (30-120); ALT (SGPT) 18 U/L (10-68); BILIRUBIN - TOTAL 0.45 mg/dL (0.2-1.3); CKMB 0.7 U/L (0.0-3.6); CREATINE KINASE 54 UL (21-232); PRO BNP 111 pg/mL (0-125); PROTEIN - SERUM 7.1 g/dL (6.4-8.2); TROPONIN-I < 0.017 ng/mL (0.000-0.060)
--- NOTE | 2020-02-08 19:08 | NUR ---
PT FROM ER VIA STRETCHER, PT AMBULATES TO BED, NO DISTRESS NOTED, RESP EVEN AND UNLABORED. CL IN REACH, SR UP X 2.
[2020-02-08 19:19] VITALS: BP 116/82
[2020-02-08 19:28] LABS: SPECIFIC GRAVITY 1.015 (1.005-1.020)
[2020-02-08 19:29] LABS: BILIRUBIN NEGATIVE (NEGATIVE); GLUCOSE 1000 mg/dL (NEGATIVE); KETONE NEGATIVE (NEGATIVE); NITRITE NEGATIVE (NEGATIVE); UROBILINOGEN NORMAL (NORMAL)
[2020-02-08] MEDS ORDERED: OXYCODONE HCL10 MG PO (22:19)
[2020-02-09] VITALS (7 sets, daily range): BP systolic 116–149; BP diastolic 58–96
--- NOTE | 2020-02-09 04:36 | NUR ---
I have reviewed this patient and I concur with the Shift Assessment completed by the Licensed Practical Nurse today this shift.
[2020-02-09 06:52] LABS: BASOPHILS 0.1 % (0-2); EOSINOPHILS 0.1 % (0-7); HEMATOCRIT 44.6 % (42.0-54.0); IMMATURE GRANULOCYTES 0.3 % (0-5); LYMPHOCYTES 11.8 % (15-50); MCH 26.3 pg (26.0-34.0); MCHC 31.4 g/dL (31.0-37.0); MCV 83.8 fL (80.0-100.0); MEAN PLATELET VOLUME 10.6 fL (7.4-10.4); MONOCYTES 14.4 % (2-11); NEUTROPHILS 73.3 % (40-80); PLATELET COUNT 224 10x3/uL (130-400); RBC 5.32 10x6/uL (4.20-6.10); RDW 15.4 % (11.5-14.5); WBC 9.7 10x3/uL (4.8-10.8)
[2020-02-09 07:35] LABS: ALBUMIN 3.3 g/dL (3.4-5.0); ALKALINE PHOSPHATASE 52 U/L (30-120); ALT (SGPT) 17 U/L (10-68); BILIRUBIN - TOTAL 0.52 mg/dL (0.2-1.3); CALC OSMOLALITY 276 mosm/kg (275-300); CARBON DIOXIDE 30.8 mmol/L (21.0-32.0); CHLORIDE - SERUM 100 mmol/L (98-107); CKMB 1.1 U/L (0.0-3.6); CREATINE KINASE 64 UL (21-232); CREATININE - SERUM 0.9 mg/dL (0.6-1.3); GLUCOSE 128 mg/dL (74-106); POTASSIUM - SERUM 3.5 mmol/L (3.5-5.1); PROTEIN - SERUM 6.6 g/dL (6.4-8.2); SODIUM 137 mmol/L (136-145); UREA NITROGEN 14 mg/dL (7-18); eGFR NON AFRICAN AMERICAN 89 mL/min (90-120)
[2020-02-09 07:38] LABS: TROPONIN-I < 0.017 ng/mL (0.000-0.060)
--- NOTE | 2020-02-09 16:15 | NUR ---
PT TRANSFERRED TO ROOM 7 FROM 2132 POST NEGATIVE COVID TESTING. PT TEXT CHANGE OF ROOM.
[2020-02-10 06:36] LABS: ALBUMIN 3.1 g/dL (3.4-5.0); ALKALINE PHOSPHATASE 44 U/L (30-120); ALT (SGPT) 18 U/L (10-68); BILIRUBIN - TOTAL 0.38 mg/dL (0.2-1.3); CALC OSMOLALITY 277 mosm/kg (275-300); CALCIUM 8.6 mg/dL (8.5-10.1); CARBON DIOXIDE 28.3 mmol/L (21.0-32.0); CHLORIDE - SERUM 103 mmol/L (98-107); CREATININE - SERUM 0.8 mg/dL (0.6-1.3); GLUCOSE 143 mg/dL (74-106); POTASSIUM - SERUM 3.4 mmol/L (3.5-5.1); PROTEIN - SERUM 6.2 g/dL (6.4-8.2); SODIUM 137 mmol/L (136-145); UREA NITROGEN 17 mg/dL (7-18); eGFR NON AFRICAN AMERICAN > 90 mL/min (90-120)
[2020-02-10 06:52] LABS: BASOPHILS 0.3 % (0-2); EOSINOPHILS 3.7 % (0-7); HEMATOCRIT 42.8 % (42.0-54.0); HEMOGLOBIN 13.4 g/dL (13.5-17.5); IMMATURE GRANULOCYTES 0.3 % (0-5); LYMPHOCYTES 12.3 % (15-50); MCH 26.6 pg (26.0-34.0); MCHC 31.3 g/dL (31.0-37.0); MCV 84.9 fL (80.0-100.0); MEAN PLATELET VOLUME 9.9 fL (7.4-10.4); MONOCYTES 17.4 % (2-11); RBC 5.04 10x6/uL (4.20-6.10); RDW 15.6 % (11.5-14.5); WBC 7.8 10x3/uL (4.8-10.8)
[2020-02-10 06:56] LABS: PLATELET COUNT 174 10x3/uL (130-400)
--- NOTE | 2020-02-10 07:20 | NUR ---
RECEIVED REPORT, ASSUMED CARE, A&O X3, BREATHING EVEN AND UNLABORED, CALL LIGHTIN REACH. BED LOWEST POSITION, IV TO RAC PATENT, NO EDEMA NOTED, LUNGS DIMINISHED BILATERALLY, 4L O2 NC, DENIES NEEDS
[2020-02-10 10:44] VITALS: BP 128/91
--- NOTE | 2020-02-10 16:36 | NUR ---
I have reviewed this patient and I concur with the Shift Assessment completed by the Licensed Practical Nurse today this shift.
--- NOTE | 2020-02-10 16:36 | NUR ---
I have reviewed this patient and I concur with the Shift Assessment completed by the Licensed Practical Nurse today this shift.
[2020-02-10 17:43] VITALS: BP 107/66
--- NOTE | 2020-02-10 18:52 | NUR ---
IV TO LAC CAME OUT, CLEANED PT, IV PLACED 20G TO LFA
[2020-02-10 20:00] VITALS: BP 115/65
[2020-02-11 04:00] VITALS: BP 113/70
[2020-02-11 06:00] LABS: BASOPHILS 0.1 % (0-2); EOSINOPHILS 0.9 % (0-7); HEMATOCRIT 41.6 % (42.0-54.0); HEMOGLOBIN 13.2 g/dL (13.5-17.5); IMMATURE GRANULOCYTES 0.3 % (0-5); LYMPHOCYTES 13.4 % (15-50); MCH 26.4 pg (26.0-34.0); MCHC 31.7 g/dL (31.0-37.0); MCV 83.2 fL (80.0-100.0); MEAN PLATELET VOLUME 9.6 fL (7.4-10.4); MONOCYTES 12.7 % (2-11); NEUTROPHILS 72.6 % (40-80); WBC 7.7 10x3/uL (4.8-10.8)
[2020-02-11 06:20] LABS: PLATELET COUNT 230 10x3/uL (130-400)
[2020-02-11 06:32] LABS: ALBUMIN 3.1 g/dL (3.4-5.0); ALKALINE PHOSPHATASE 46 U/L (30-120); ALT (SGPT) 19 U/L (10-68); BILIRUBIN - TOTAL 0.26 mg/dL (0.2-1.3); CALC OSMOLALITY 284 mosm/kg (275-300); CALCIUM 8.7 mg/dL (8.5-10.1); CARBON DIOXIDE 29.6 mmol/L (21.0-32.0); CHLORIDE - SERUM 105 mmol/L (98-107); CREATININE - SERUM 0.8 mg/dL (0.6-1.3); GLUCOSE 171 mg/dL (74-106); MAGNESIUM - SERUM 2.2 mg/dL (1.8-2.4); POTASSIUM - SERUM 3.5 mmol/L (3.5-5.1); PROTEIN - SERUM 6.6 g/dL (6.4-8.2); SODIUM 140 mmol/L (136-145); UREA NITROGEN 17 mg/dL (7-18); eGFR NON AFRICAN AMERICAN > 90 mL/min (90-120)
--- NOTE | 2020-02-11 07:10 | NUR ---
RECEIVED REPORT, ASSUMED CARE, PT SITTING IN CHAIR READING, BREATHING EVEN UNLABORED, IV TO LFA PATENT, O2 4L NC, CALL LIGHT IN REACH, LUNGS CLEAR BILATERALLY, NO EDEMA NOTED
[2020-02-11 08:00] VITALS: BP 146/68
[2020-02-11 13:30] VITALS: BP 130/69
[2020-02-11 18:26] VITALS: BP 131/75
--- NOTE | 2020-02-11 18:36 | NUR ---
I have reviewed this patient and I concur with the Shift Assessment completed by the Licensed Practical Nurse today this shift.
[2020-02-11 20:00] VITALS: BP 151/80
[2020-02-12] VITALS: BP 166/91
[2020-02-12 04:00] VITALS: BP 137/68
[2020-02-12 05:13] LABS: BASOPHILS 0 % (0-2); EOSINOPHILS 0.4 % (0-7); HEMATOCRIT 38.4 % (42.0-54.0); IMMATURE GRANULOCYTES 0.3 % (0-5); LYMPHOCYTES 12.3 % (15-50); MCHC 31.3 g/dL (31.0-37.0); MCV 83.3 fL (80.0-100.0); MEAN PLATELET VOLUME 9.5 fL (7.4-10.4); MONOCYTES 12.7 % (2-11); NEUTROPHILS 74.3 % (40-80); PLATELET COUNT 214 10x3/uL (130-400); RBC 4.61 10x6/uL (4.20-6.10); RDW 15.3 % (11.5-14.5); WBC 6.7 10x3/uL (4.8-10.8)
[2020-02-12 05:27] LABS: ALBUMIN 2.8 g/dL (3.4-5.0); ALKALINE PHOSPHATASE 38 U/L (30-120); BILIRUBIN - TOTAL 0.21 mg/dL (0.2-1.3); CALC OSMOLALITY 289 mosm/kg (275-300); CALCIUM 8.2 mg/dL (8.5-10.1); CARBON DIOXIDE 31.4 mmol/L (21.0-32.0); CHLORIDE - SERUM 106 mmol/L (98-107); CREATININE - SERUM 0.7 mg/dL (0.6-1.3); GLUCOSE 174 mg/dL (74-106); MAGNESIUM - SERUM 1.9 mg/dL (1.8-2.4); POTASSIUM - SERUM 3.7 mmol/L (3.5-5.1); PROTEIN - SERUM 5.6 g/dL (6.4-8.2); SODIUM 143 mmol/L (136-145); UREA NITROGEN 16 mg/dL (7-18); eGFR NON AFRICAN AMERICAN > 90 mL/min (90-120)
[2020-02-12 05:33] LABS: ALT (SGPT) 25 U/L (10-68)
--- NOTE | 2020-02-12 07:05 | NUR ---
PT SITTING UP IN CHAIR AT BEDSIDE, BREATHING EVEN UNLABORED, DENIES NEEDS, CALL LIGHT IN REACH, IV TO LFA PATENT NS @125, 02 4L NC, WILL CONTINUE POC
[2020-02-12 08:41] VITALS: BP 138/84
[2020-02-12] MEDS ORDERED: CLEOCIN HCL300 MG PO (11:44)
[2020-02-12] MEDS ORDERED: LEVOFLOXACIN500 MG PO (11:44)
[2020-02-12 11:45] VITALS: BP 135/76
[2020-02-12] MEDS ORDERED: FLORAJEN3 CAPS460 MG PO (11:45)
[2020-02-12] MEDS ORDERED: SINGULAIR10 MG PO (11:45)
[2020-02-12] MEDS ORDERED: MUCINEX DM ER1 EAC1 PO (11:45)
[2020-02-12] MEDS ORDERED: DALIRESP250 MCG PO (11:45)
[2020-02-12] MEDS ORDERED: FLUTICASONE PRO16 GM NASAL (11:45)
[2020-02-12] MEDS ORDERED: TESSALON PERLE100 MG PO (11:45)
[2020-02-12] MEDS ORDERED: PERFOROMIS20 MCG/21 UPD (11:46)
[2020-02-12] MEDS ORDERED: PREDNISONE10 MG PO (11:47)
[2020-02-12] MEDS ORDERED: PEPCID PO (11:48)
[2020-02-12 13:13] VITALS: Ht 188 cm; Wt 95.3 kg
--- NOTE | 2020-02-12 14:17 | MORECARE ---
CASE MANAGEMENT DISCHARGE SUMMARY PATIENT: CHELSEA HERNANDEZ UNIT: [id number] ADM DATE: 02/08/20 AGE: 69 : 49 SEX: M ROOM/BED: D.2227 AUTHOR: DALTON CARRASCO PHYSICIAN: REFERRING PHYSICIAN: BOBO LAY MD DATE OF SERVICE: 02/12/20 Discharge Plan Patient Name: CHELSEA HERNANDEZ [facility] : 1950 Planned Disposition: Anticipated Discharge Date: Discharge Date: Expected LOS: Initial Reviewer: [email or web address] Initial Review Date: 02/08/2020 Generated: 02/12/20 3:16 pm Comments DCP- Discharge Planning Updated by [email or web address]: Benita Jeff on 02/12/20 1:[address] Patient Name: CHELSEA HERNANDEZ Admission Status: ER Accout number: [id number] Admission Date: 02-08-2020 : 1950 Admission Diagnosis:PNEUMONIA, UNSPECIFIED ORGANISM Attending: ANISA LAY Current LOS: 4 Anticipated DC Date: Planned Disposition: Primary Insurance: [employer] CHOICE PPO MCR ADVANT Discharge Planning Comments: CM met with patient at bedside after explaining CM role and obtaining verbal consent. CM discussed availability / needs of home health, REHAB and medical equipment. PATIENT DENIES ANY DISCHARGE NEEDS. HAS 02 AND [facility] Personnel Clerk: Benita Jeff Coverage Notice Reviewer: [id number] - Benita Jeff Notice Issued Date-Time: 02/12/2020 14:04 Notice Type: IM Discharge Notice Notice Delivered To: Patient Relationship to Patient: Ladies Locker Room Attendant Name: Delivery Method: - Sheeba Days: Prior Verbal Notification: Recipient Understood Notice: Recipient Signature: Med Rec Note Co-signed by Attending: Coverage Notice Comment: Patient Name: CHELSEA HERNANDEZ Page [phone] at 1417 All edits/amendments must be made on the electronic document DICTATION DATE: 02/12/20 1415 BOOM PUMP OPERATOR: NICOL 02/12/20 1415 RPT#: [id number] DC DATE: STATUS: ADM IN [facility] [address] [place] [address] END OF REPORT
--- NOTE | 2020-02-12 14:37 | NUR ---
PATIENT REFUSING TREATMENT AND STATES HEIS LEAVING AMA IF DR KRUSE DOES NOT DISCHARGE HIM RN NOTIFIED
--- NOTE | 2020-02-12 15:31 | NUR ---
DISCHARGE INSTRUCTIONS GIVEN QUESTIONS ANSWERED, IV REMOVED FROM RFA, DC WITH BELONGINGS PER WC
--- NOTE | 2020-02-12 17:26 | MORECARE ---
CASE MANAGEMENT DISCHARGE SUMMARY PATIENT: CHELSEA HERNANDEZ UNIT: [id number] ADM DATE: 02/08/20 AGE: 69 : 49 SEX: M ROOM/BED: D.2227 AUTHOR: DALTON CARRASCO PHYSICIAN: REFERRING PHYSICIAN: BOBO LAY MD DATE OF SERVICE: 02/12/20 Discharge Plan Patient Name: CHELSEA HERNANDEZ [facility] : 1950 Planned Disposition: Anticipated Discharge Date: Discharge Date: 02/12/2020 Expected LOS: Initial Reviewer: [email or web address] Initial Review Date: 02/08/2020 Generated: 02/12/20 6:26 pm Comments DCP- Discharge Planning Updated by [email or web address]: Benita Jeff on 02/12/20 1:[address] Patient Name: CHELSEA HERNANDEZ Admission Status: ER Accout number: [id number] Admission Date: 02-08-2020 : 1950 Admission Diagnosis:PNEUMONIA, UNSPECIFIED ORGANISM Attending: ANISA LAY Current LOS: 4 Anticipated DC Date: Planned Disposition: Primary Insurance: [employer] CHOICE PPO MCR ADVANT Discharge Planning Comments: CM met with patient at bedside after explaining CM role and obtaining verbal consent. CM discussed availability / needs of home health, REHAB and medical equipment. PATIENT DENIES ANY DISCHARGE NEEDS. HAS 02 AND [facility] [place] Ekg Manager: Benita Jeff Coverage Notice Reviewer: [id number] - Benita Jeff Notice Issued Date-Time: 02/12/2020 14:04 Notice Type: IM Discharge Notice Notice Delivered To: Patient Relationship to Patient: English Tutor Name: Delivery Method: - Sheeba Days: Prior Verbal Notification: Recipient Understood Notice: Recipient Signature: Med Rec Note Co-signed by Attending: Coverage Notice Comment: Last DP export: 02/12/20 1:17 p Patient Name: CHELSEA HERNANDEZ Page [phone] at 1726 All edits/amendments must be made on the electronic document DICTATION DATE: 02/12/201725 JACQUARD LACE WEAVER: NICOL 02/12/201725 RPT#: [id number] DC DATE:02/12/20 STATUS: DIS IN [facility] [address] [place] [address] END OF REPORT
[2020-02-13 06:10] LABS: IMMUNOGLOBULIN A 183 mg/dL (61-437); IMMUNOGLOBULIN G 458 mg/dL (603-1613)
== END 2020-02-12 15:31 | disposition home or self-care (01) | DRG 177 ==
LOC: D.ER 16:33 → D.M2 18:24 → D.MS 02-09 16:01
PROVIDERS: Family Medicine; Internal Medicine Pulmonary Disease; ADMIT Emergency Medicine; ATTEND Emergency Medicine
DX: J69.0 Pneumonitis due to inhalation of food and vomit (principal); J96.21 Acute and chronic respiratory failure with hypoxia; D80.2 Selective deficiency of immunoglobulin A [IgA]; E11.65 Type 2 diabetes mellitus with hyperglycemia; I10 Essential (primary) hypertension; K21.9 Gastro-esophageal reflux disease without esophagitis; K22.70 Barrett's esophagus without dysplasia; N40.0 Benign prostatic hyperplasia without lower urinary tract symptoms; J43.9 Emphysema, unspecified; E11.40 Type 2 diabetes mellitus with diabetic neuropathy, unspecified; K44.9 Diaphragmatic hernia without obstruction or gangrene; I25.10 Atherosclerotic heart disease of native coronary artery without angina pectoris; I70.0 Atherosclerosis of aorta; Z87.891 Personal history of nicotine dependence

== ENCOUNTER 2020-03-17 07:47 | Inpatient (IN) | payer MEDICARE ==
[~2020-03-17] VITALS: Ht 188 cm; Wt 90.9 kg
[~2020-03-17 07:47] MED LIST changes: +CLEOCIN HCL300 MG PO; +DALIRESP250 MCG PO; +FLORAJEN3 CAPS460 MG PO; +FLUTICASONE PRO16 GM NASAL; +LEVOFLOXACIN500 MG PO; +MUCINEX DM ER1 EAC1 PO; +OXYCODONE HCL10 MG PO; +PEPCID PO; +PERFOROMIS20 MCG/21 UPD; +SINGULAIR10 MG PO; +TESSALON PERLE100 MG PO
[2020-03-17] MEDS ORDERED: GLUCOPHAGE500 MG PO ×2 (08:05→21:35)
[2020-03-17] MEDS ORDERED: MULTIVITAMIN PO (08:06)
[2020-03-17] MEDS ORDERED: FARXIGA10 MG PO (08:06)
[2020-03-17] MEDS ORDERED: NORVASC10 MG PO (08:06)
[2020-03-17] MEDS ORDERED: NEURONTIN600 MG PO (08:07)
[2020-03-17] MEDS ORDERED: BENICAR40 MG PO (08:07)
[2020-03-17] MEDS ORDERED: OMEPRAZOLE40 MG PO (08:08)
[2020-03-17] MEDS ORDERED: SAW PALMETTO450 MG PO (08:08)
[2020-03-17] MEDS ORDERED: AZULFIDINE500 MG PO (08:09)
[2020-03-17] MEDS ORDERED: DALIRESP250 MCG PO (08:10)
[2020-03-17 08:25] LABS: BASOPHILS 0.1 % (0-2); EOSINOPHILS 1.2 % (0-7); HEMATOCRIT 47.5 % (42.0-54.0); HEMOGLOBIN 15.1 g/dL (13.5-17.5); IMMATURE GRANULOCYTES 0.3 % (0-5); LYMPHOCYTES 8.5 % (15-50); MCH 27.1 pg (26.0-34.0); MCHC 31.8 g/dL (31.0-37.0); MCV 85.3 fL (80.0-100.0); MEAN PLATELET VOLUME 9.8 fL (7.4-10.4); MONOCYTES 13.6 % (2-11); NEUTROPHILS 76.3 % (40-80); PLATELET COUNT 198 10x3/uL (130-400); RBC 5.57 10x6/uL (4.20-6.10); RDW 15.9 % (11.5-14.5); WBC 9.8 10x3/uL (4.8-10.8)
[2020-03-17 08:33] LABS: CALC OSMOLALITY 276 mosm/kg (275-300); CALCIUM 9.7 mg/dL (8.5-10.1); CARBON DIOXIDE 28.3 mmol/L (21.0-32.0); CHLORIDE - SERUM 99 mmol/L (98-107); POTASSIUM - SERUM 3.6 mmol/L (3.5-5.1); SODIUM 137 mmol/L (136-145); UREA NITROGEN 18 mg/dL (7-18); eGFR NON AFRICAN AMERICAN 78 mL/min (90-120)
[2020-03-17 08:36] LABS: INR 1.14 (0.85-1.17); PROTIME 14.6 SECONDS (11.6-15.0)
[2020-03-17 08:37] LABS: APTT 35.9 SECONDS (22.8-39.4); GLUCOSE 115 mg/dL (74-106)
[2020-03-17 08:48] LABS: ALBUMIN 3.8 g/dL (3.4-5.0); ALKALINE PHOSPHATASE 59 U/L (30-120); ALT (SGPT) 23 U/L (10-68); BILIRUBIN - TOTAL 0.64 mg/dL (0.2-1.3); CKMB 0.8 U/L (0.0-3.6); CREATINE KINASE 45 UL (21-232); PRO BNP 74 pg/mL (0-125); PROTEIN - SERUM 7.5 g/dL (6.4-8.2)
[2020-03-17 08:56] LABS: TROPONIN-I < 0.017 ng/mL (0.000-0.060)
[2020-03-17 09:36] VITALS: BP 119/76
--- NOTE | 2020-03-17 12:01 | NUR ---
COVID RESULTS ARE BACK PT IS NEGATIVE. PRECAUTIONS REMOVED FROM DOOT.
--- NOTE | 2020-03-17 14:00 | NUR ---
PT ARRIVES TO UNIT VIA WHEELCHAIR AND ACCOMPANIED BY .
[2020-03-17 14:57] VITALS: Ht 188 cm; Wt 90.9 kg
--- NOTE | 2020-03-17 15:00 | NUR ---
PT PROVIDES MED LIST FOR PT. PT DOES NOT USE INSULIN AT HOME. ENCOURAGE PT TO GIVE HIS JEWELRY TO TAKE HOME. PT REFUSES. PT INDEPENDENT IN ROOM, CAN AMBULATE TO BATHROOM UNASSISTED. CALL LIGHT AND PERSONAL ITEMS WITHIN REACH. PT STATES HE HAS BEEN A PT HERE AT THE HOSPITAL BEFORE.
[2020-03-17 16:00] VITALS: BP 129/77
--- NOTE | 2020-03-17 19:31 | NUR ---
RECIEVED UP IN CHAIR. ALERT AND ORIENTED X4. UP AD FATOU TO B/R. IV TO LT FA SL. PLEASNAT AND TALKATIVE. MEDEL'NT KNOW WHAT MEDICATIONSS HE TAKES. WILL CALL HIS SPOUSE TO VERIFY HOME MEDICATIONS. DENIES ANY NEEDS AT THIS TIME.
[2020-03-17 20:00] VITALS: BP 122/69
[2020-03-17] MEDS ORDERED: TRIAMTERENE-HC1 EAC3 PO (21:40)
[2020-03-18] VITALS: BP 124/80
[2020-03-18 04:00] VITALS: BP 115/82
--- NOTE | 2020-03-18 06:03 | NUR ---
IV OUT WHEN ENTERED THE ROOM. ATTEMPTS X2 UNSUCESSFUL. CICI BARAHONA STARTED 23G TO LT FA. IV ABT INFUSING AT THIS TIME.
[2020-03-18 06:44] LABS: ALBUMIN 3.3 g/dL (3.4-5.0); ALKALINE PHOSPHATASE 51 U/L (30-120); ALT (SGPT) 23 U/L (10-68); BILIRUBIN - TOTAL 0.35 mg/dL (0.2-1.3); CALC OSMOLALITY 284 mosm/kg (275-300); CALCIUM 9.2 mg/dL (8.5-10.1); CHLORIDE - SERUM 100 mmol/L (98-107); GLUCOSE 134 mg/dL (74-106); POTASSIUM - SERUM 3.8 mmol/L (3.5-5.1); PROTEIN - SERUM 6.6 g/dL (6.4-8.2); SODIUM 139 mmol/L (136-145); eGFR NON AFRICAN AMERICAN 78 mL/min (90-120)
[2020-03-18 06:45] LABS: BASOPHILS 0.2 % (0-2); EOSINOPHILS 0.9 % (0-7); HEMATOCRIT 44.5 % (42.0-54.0); HEMOGLOBIN 13.9 g/dL (13.5-17.5); IMMATURE GRANULOCYTES 0.3 % (0-5); LYMPHOCYTES 10.6 % (15-50); MCH 26.6 pg (26.0-34.0); MCHC 31.2 g/dL (31.0-37.0); MCV 85.1 fL (80.0-100.0); MEAN PLATELET VOLUME 9.9 fL (7.4-10.4); MONOCYTES 11.6 % (2-11); NEUTROPHILS 76.4 % (40-80); RBC 5.23 10x6/uL (4.20-6.10); RDW 15.9 % (11.5-14.5)
[2020-03-18 06:46] LABS: UREA NITROGEN 27 mg/dL (7-18)
[2020-03-18 07:08] LABS: PLATELET COUNT 281 10x3/uL (130-400)
--- NOTE | 2020-03-18 07:30 | NUR ---
PT SITTING UP IN BED. WATCHING TV. PT'S AT BEDSIDE. PT STATES HE HAS NO FURTHER NEEDS AT THIS TIME. BED LOW. CL IN REACH. WILL CONTINUE WITH POC.
[2020-03-18 07:57] VITALS: BP 129/87
[2020-03-18 13:23] VITALS: BP 118/80
--- NOTE | 2020-03-18 13:43 | NUR ---
I have reviewed this patient and I concur with the Shift Assessment completed by the Licensed Practical Nurse today this shift.
[2020-03-18 17:05] VITALS: BP 125/84
--- NOTE | 2020-03-18 19:00 | NUR ---
ALERT AND UP AMBLITORY IN ROOM BED LOW AND LOCKED PT DENIES NEEDS AT THIS TIME
[2020-03-18 21:40] VITALS: BP 120/85
[2020-03-19] VITALS: BP 150/84
[2020-03-19 04:00] VITALS: BP 132/75
--- NOTE | 2020-03-19 07:40 | NUR ---
PT AWAKE AND WAITING FOR BREAKFAST.CALL LIGHT WITHIN REACH.
[2020-03-19 08:00] VITALS: BP 142/82
[2020-03-19 12:03] VITALS: BP 122/70
[2020-03-19 16:00] VITALS: BP 109/70; BP 160/90
[2020-03-19 20:00] VITALS: BP 114/74
[2020-03-20 04:00] VITALS: BP 133/82
--- NOTE | 2020-03-20 07:15 | NUR ---
WALKING ROUNDS COMPLETE, PT SITTING UP IN CHAIR, O2 IN USE, PT DENIES PAIN, REQUEST A CUP OF COFFEE,NO OTHER NEEDS VOICED, WILL MONITOR, CALL LIGHT IN REACH
--- NOTE | 2020-03-20 08:37 | NUR ---
GAVE PT SCHEDULED MEDS, NO OTHER NEEDS VOICED, WILL MONITOR
[2020-03-20 10:36] VITALS: BP 127/77
--- NOTE | 2020-03-20 11:38 | NUR ---
PT TOOK MEDS WITHOUT DIFFICULTY, HOOKED PT UP TO ANTIBIOTICS, SITE CLEAR, PT BLOOD SUGAR 241, 12 UNITS INSULIN GIVEN IN RLQ, NO OTHER NEEDS VOICED, WILL MONITOR
[2020-03-20 13:04] LABS: BASOPHILS 0.3 % (0-2); EOSINOPHILS 0.8 % (0-7); HEMATOCRIT 46.3 % (42.0-54.0); HEMOGLOBIN 14.5 g/dL (13.5-17.5); IMMATURE GRANULOCYTES 0.4 % (0-5); LYMPHOCYTES 6.7 % (15-50); MCH 26.9 pg (26.0-34.0); MCHC 31.3 g/dL (31.0-37.0); MCV 85.7 fL (80.0-100.0); MEAN PLATELET VOLUME 9.7 fL (7.4-10.4); MONOCYTES 6.9 % (2-11); NEUTROPHILS 84.9 % (40-80); PLATELET COUNT 267 10x3/uL (130-400); RDW 15.4 % (11.5-14.5); WBC 7.3 10x3/uL (4.8-10.8)
[2020-03-20 13:21] LABS: CALC OSMOLALITY 287 mosm/kg (275-300); CALCIUM 9.1 mg/dL (8.5-10.1); CARBON DIOXIDE 31.1 mmol/L (21.0-32.0); CHLORIDE - SERUM 99 mmol/L (98-107); GLUCOSE 248 mg/dL (74-106); POTASSIUM - SERUM 3.6 mmol/L (3.5-5.1); SODIUM 139 mmol/L (136-145); UREA NITROGEN 18 mg/dL (7-18); eGFR NON AFRICAN AMERICAN 78 mL/min (90-120)
[2020-03-20 16:00] VITALS: BP 111/71
--- NOTE | 2020-03-20 19:42 | NUR ---
REPORT RECIEVED AND ROUNDING COMPLETE. PATIENT STATING NEXT TO HIS BED, HE STATES HE IS TIRED OF LAYING AROUND IN BED AND THAT HIS ROOM FEEL LIKE A PRISION CELL. HE IS WEARING HIS NASAL CANNULA WITH O2 AT 4L. LEFT FOREARM PIV THAT IS SALIN LOCKED AT THIS TIME. HOME CPAP AT BEDSIDE. NO DISTRESS NOTED, NO NEEDS VOICED. CALL HESHAM LAYING ON HIS BED WITHIN REACH.
[2020-03-20 20:00] VITALS: BP 120/81
[2020-03-21 06:12] LABS: HEMATOCRIT 40.2 % (42.0-54.0); HEMOGLOBIN 12.7 g/dL (13.5-17.5); LYMPHOCYTES 23.6 % (15-50); MCH 26.8 pg (26.0-34.0); MCHC 31.6 g/dL (31.0-37.0); MEAN PLATELET VOLUME 9.2 fL (7.4-10.4); NEUTROPHILS 63.3 % (40-80); PLATELET COUNT 258 10x3/uL (130-400); RBC 4.73 10x6/uL (4.20-6.10); RDW 14.7 % (11.5-14.5)
[2020-03-21 06:23] LABS: WBC 5.4 10x3/uL (4.8-10.8)
[2020-03-21 06:36] LABS: CALC OSMOLALITY 282 mosm/kg (275-300); CALCIUM 9.1 mg/dL (8.5-10.1); CARBON DIOXIDE 31.7 mmol/L (21.0-32.0); CHLORIDE - SERUM 102 mmol/L (98-107); CREATININE - SERUM 0.8 mg/dL (0.6-1.3); POTASSIUM - SERUM 3.3 mmol/L (3.5-5.1); SODIUM 140 mmol/L (136-145); UREA NITROGEN 16 mg/dL (7-18); eGFR NON AFRICAN AMERICAN > 90 mL/min (90-120)
[2020-03-21 06:37] LABS: GLUCOSE 146 mg/dL (74-106)
[2020-03-21 10:22] VITALS: BP 143/81
[2020-03-21 13:46] VITALS: BP 134/86
[2020-03-21 18:07] VITALS: BP 129/90
[2020-03-21 20:00] VITALS: BP 133/68
[2020-03-22 04:00] VITALS: BP 137/74
--- NOTE | 2020-03-22 04:47 | NUR ---
ASSESSED AT THE BEGINNING OF THE SHIFT. PT IS ALERT AND ORIENTED, ABLE TO VERBALIZE NEEDS. HE HAS HIS OE AT 4 PER N/C AND WE ARE KEEPING THE HOB UP 40%. HE IS ABLE TO TURN AND REPOSTION HIMSELF AND HAS BEEN GETTING UPTO BATHROOM AD FATOU. NO SWALLOWING PROBLEMS NOTED AND ACC CHECK WAS 148 NOT REQUIRING ANY INSULIN. AT THIS TIME HE IS ASLEEP
[2020-03-22 06:16] LABS: CALC OSMOLALITY 284 mosm/kg (275-300); CALCIUM 9.1 mg/dL (8.5-10.1); CARBON DIOXIDE 31.6 mmol/L (21.0-32.0); CHLORIDE - SERUM 102 mmol/L (98-107); CREATININE - SERUM 0.9 mg/dL (0.6-1.3); GLUCOSE 189 mg/dL (74-106); POTASSIUM - SERUM 4.1 mmol/L (3.5-5.1); SODIUM 139 mmol/L (136-145); UREA NITROGEN 18 mg/dL (7-18); VANCOMYCIN - TROUGH 6.8 ug/mL (10.0-20.0); eGFR NON AFRICAN AMERICAN 89 mL/min (90-120)
[2020-03-22 07:46] LABS: BASOPHILS 0.3 % (0-2); EOSINOPHILS 0.6 % (0-7); HEMATOCRIT 42.7 % (42.0-54.0); HEMOGLOBIN 13.5 g/dL (13.5-17.5); IMMATURE GRANULOCYTES 0.4 % (0-5); LYMPHOCYTES 12.5 % (15-50); MCH 26.8 pg (26.0-34.0); MCHC 31.6 g/dL (31.0-37.0); MCV 84.7 fL (80.0-100.0); MEAN PLATELET VOLUME 9.9 fL (7.4-10.4); MONOCYTES 9.6 % (2-11); NEUTROPHILS 76.6 % (40-80); PLATELET COUNT 271 10x3/uL (130-400); RBC 5.04 10x6/uL (4.20-6.10); RDW 15.1 % (11.5-14.5); WBC 6.7 10x3/uL (4.8-10.8)
--- NOTE | 2020-03-22 07:49 | NUR ---
PATIENT SITTING UP IN CHAIR. DENIES PAIN OR NEEDS AT THIS TIME. CALL LIGHT IN REACH. WILL CONTINUE TO MONITOR.
[2020-03-22 09:52] VITALS: BP 131/80
[2020-03-22 13:23] VITALS: BP 120/74
[2020-03-22 17:49] VITALS: BP 115/67
[2020-03-23 04:00] VITALS: BP 139/86; BP 147/66
[2020-03-23 05:58] LABS: BASOPHILS 0.1 % (0-2); EOSINOPHILS 0.3 % (0-7); HEMATOCRIT 42.5 % (42.0-54.0); HEMOGLOBIN 13.2 g/dL (13.5-17.5); IMMATURE GRANULOCYTES 0.6 % (0-5); LYMPHOCYTES 12.6 % (15-50); MCH 26.6 pg (26.0-34.0); MCHC 31.1 g/dL (31.0-37.0); MCV 85.5 fL (80.0-100.0); MEAN PLATELET VOLUME 9.9 fL (7.4-10.4); MONOCYTES 7.8 % (2-11); NEUTROPHILS 78.6 % (40-80); PLATELET COUNT 278 10x3/uL (130-400); RBC 4.97 10x6/uL (4.20-6.10); RDW 15.2 % (11.5-14.5)
[2020-03-23 06:04] LABS: CALC OSMOLALITY 288 mosm/kg (275-300); CALCIUM 9.2 mg/dL (8.5-10.1); CARBON DIOXIDE 34.5 mmol/L (21.0-32.0); CHLORIDE - SERUM 103 mmol/L (98-107); CREATININE - SERUM 0.9 mg/dL (0.6-1.3); GLUCOSE 166 mg/dL (74-106); POTASSIUM - SERUM 4.4 mmol/L (3.5-5.1); SODIUM 142 mmol/L (136-145); UREA NITROGEN 19 mg/dL (7-18); eGFR NON AFRICAN AMERICAN 89 mL/min (90-120)
[2020-03-23 06:08] LABS: WBC 8.8 10x3/uL (4.8-10.8)
--- NOTE | 2020-03-23 07:15 | NUR ---
REC'D IN BED AWAKE AND ALERT. RESP EVEN AND UNLABORED WITH NO DISTRESS NOTED. CAN EXPRESS NEEDS AND WANTS. NO C/O NOTED OR VOICED. ASSESSMENT COMPLETED. C/L IN REACH AT BEDSIDE.
[2020-03-23 10:00] VITALS: BP 137/84
[2020-03-23] MEDS ORDERED: AUGMENTIN 875-11 TAB PO (12:25)
[2020-03-23] MEDS ORDERED: FLORAJEN3 CAPS460 MG PO (12:26)
[2020-03-23] MEDS ORDERED: PEPCID PO (12:27)
[2020-03-23] MEDS ORDERED: PREDNISONE10 MG PO (12:27)
[2020-03-23 12:42] VITALS: BP 144/86
--- NOTE | 2020-03-23 14:00 | NUR ---
I have reviewed this patient and I concur with the Shift Assessment completed by the Licensed Practical Nurse today this shift.
--- NOTE | 2020-03-23 14:23 | NUR ---
DC HOME AT THIS TIME IN STABLE CONDITION, VOICE UNDERSTANDING OF DC INSTRUCTION, STABLE CONDITION UPON DEPARTURE. C/L IN REACH AT BEDSIDE.
== END 2020-03-23 14:26 | disposition home or self-care (01) | DRG 193 ==
LOC: D.ER 07:47 → D.EDHOLD 11:05 → D.M2 11:05 → D.MS 11:05 → D.M2 14:29 → D.MS 03-21 05:11
PROVIDERS: Family Medicine; Internal Medicine Pulmonary Disease; ADMIT Family Medicine; ATTEND Family Medicine
DX: J18.9 Pneumonia, unspecified organism (principal); J96.22 Acute and chronic respiratory failure with hypercapnia; J96.21 Acute and chronic respiratory failure with hypoxia; J44.1 Chronic obstructive pulmonary disease with (acute) exacerbation; J44.0 Chronic obstructive pulmonary disease with (acute) lower respiratory infection; G47.33 Obstructive sleep apnea (adult) (pediatric); E11.40 Type 2 diabetes mellitus with diabetic neuropathy, unspecified; E11.65 Type 2 diabetes mellitus with hyperglycemia; I10 Essential (primary) hypertension; K21.9 Gastro-esophageal reflux disease without esophagitis; K22.70 Barrett's esophagus without dysplasia; N40.0 Benign prostatic hyperplasia without lower urinary tract symptoms; I25.10 Atherosclerotic heart disease of native coronary artery without angina pectoris; Z87.891 Personal history of nicotine dependence

== ENCOUNTER 2020-04-04 08:23 | Outpatient (CLI) | payer MEDICARE ==
[~2020-04-04 08:23] MED LIST changes: +AUGMENTIN 875-11 TAB PO; +BENICAR40 MG PO; +GLUCOPHAGE500 MG PO; +MULTIVITAMIN PO; +NEURONTIN600 MG PO; +NORVASC10 MG PO; +SAW PALMETTO450 MG PO
== END 2020-04-04 10:45 ==
LOC: D.OPS 08:23
PROVIDERS: ATTEND Surgery
DX: K21.9 Gastro-esophageal reflux disease without esophagitis (principal)

== ENCOUNTER 2020-04-05 14:30 | Inpatient (IN) | payer MEDICARE ==
[~2020-04-05] VITALS: Ht 188 cm; Wt 90.7 kg
[2020-04-05 14:47] VITALS: BP 142/88
[2020-04-05 15:17] LABS: BASOPHILS 0.1 % (0-2); EOSINOPHILS 1.7 % (0-7); HEMATOCRIT 49.3 % (42.0-54.0); HEMOGLOBIN 15.5 g/dL (13.5-17.5); IMMATURE GRANULOCYTES 0.3 % (0-5); LYMPHOCYTES 6.6 % (15-50); MCH 27.3 pg (26.0-34.0); MCHC 31.4 g/dL (31.0-37.0); MCV 86.9 fL (80.0-100.0); MEAN PLATELET VOLUME 9.6 fL (7.4-10.4); MONOCYTES 11.2 % (2-11); NEUTROPHILS 80.1 % (40-80); PLATELET COUNT 211 10x3/uL (130-400); RBC 5.67 10x6/uL (4.20-6.10); RDW 16.2 % (11.5-14.5); WBC 11.1 10x3/uL (4.8-10.8)
[2020-04-05 15:25] LABS: CALC OSMOLALITY 280 mosm/kg (275-300); CALCIUM 9.9 mg/dL (8.5-10.1); CARBON DIOXIDE 32.5 mmol/L (21.0-32.0); CHLORIDE - SERUM 99 mmol/L (98-107); GLUCOSE 177 mg/dL (74-106); POTASSIUM - SERUM 3.7 mmol/L (3.5-5.1); SODIUM 138 mmol/L (136-145); UREA NITROGEN 16 mg/dL (7-18); eGFR NON AFRICAN AMERICAN 78 mL/min (90-120)
[2020-04-05 15:37] LABS: INR 1.05 (0.85-1.17); PROTIME 13.7 SECONDS (11.6-15.0)
[2020-04-05 15:39] LABS: D-DIMER-QUANTITATIVE 0.34 ug/mLFEU (0.20-0.54)
[2020-04-05 15:41] LABS: ALBUMIN 4.3 g/dL (3.4-5.0); ALKALINE PHOSPHATASE 63 U/L (30-120); ALT (SGPT) 23 U/L (10-68); BILIRUBIN - TOTAL 0.45 mg/dL (0.2-1.3); CKMB 1.3 U/L (0.0-3.6); CREATINE KINASE 59 UL (21-232); PRO BNP 111 pg/mL (0-125); PROTEIN - SERUM 8.1 g/dL (6.4-8.2)
[2020-04-05 15:46] LABS: TROPONIN-I < 0.017 ng/mL (0.000-0.060)
[2020-04-05 15:57] VITALS: BP 138/88
[2020-04-05 17:20] VITALS: BP 138/86
--- NOTE | 2020-04-05 19:42 | NUR ---
REPORT RECEIVED, PT CARE ASSUMED. AWAITING PT'S ARRIVAL TO ROOM 2224.
[2020-04-05 20:14] LABS: BILIRUBIN NEGATIVE (NEGATIVE); KETONE NEGATIVE (NEGATIVE); NITRITE NEGATIVE (NEGATIVE); UROBILINOGEN NORMAL mg/dL (< 2)
[2020-04-05 22:31] LABS: CKMB 1.2 U/L (0.0-3.6); CREATINE KINASE 53 UL (21-232); TROPONIN-I < 0.017 ng/mL (0.000-0.060)
[2020-04-06] VITALS (7 sets, daily range): BP systolic 122–149; BP diastolic 66–88; BMI 25.7; BMI 25.6
[2020-04-06 06:41] LABS: BASOPHILS 0.1 % (0-2); EOSINOPHILS 2.2 % (0-7); HEMOGLOBIN 12.8 g/dL (13.5-17.5); IMMATURE GRANULOCYTES 0.1 % (0-5); LYMPHOCYTES 10.8 % (15-50); MCH 27.3 pg (26.0-34.0); MCHC 31.2 g/dL (31.0-37.0); MCV 87.4 fL (80.0-100.0); MEAN PLATELET VOLUME 10.3 fL (7.4-10.4); MONOCYTES 14.2 % (2-11); NEUTROPHILS 72.6 % (40-80); PLATELET COUNT 192 10x3/uL (130-400); RBC 4.69 10x6/uL (4.20-6.10); RDW 16.2 % (11.5-14.5); WBC 9.4 10x3/uL (4.8-10.8)
[2020-04-06 06:54] LABS: CALCIUM 8.6 mg/dL (8.5-10.1); CARBON DIOXIDE 30.6 mmol/L (21.0-32.0); CHLORIDE - SERUM 102 mmol/L (98-107); CKMB 1.1 U/L (0.0-3.6); CREATINE KINASE 54 UL (21-232); MAGNESIUM - SERUM 1.8 mg/dL (1.8-2.4); POTASSIUM - SERUM 3.2 mmol/L (3.5-5.1); PRO BNP 144 pg/mL (0-125); SODIUM 138 mmol/L (136-145)
[2020-04-06 06:55] LABS: CALC OSMOLALITY 274 mosm/kg (275-300); CREATININE - SERUM 0.6 mg/dL (0.6-1.3); GLUCOSE 98 mg/dL (74-106); TROPONIN-I < 0.017 ng/mL (0.000-0.060); UREA NITROGEN 11 mg/dL (7-18); eGFR NON AFRICAN AMERICAN > 90 mL/min (90-120)
[2020-04-06 06:57] LABS: APTT 37.6 SECONDS (22.8-39.4); INR 1.12 (0.85-1.17); PROTIME 14.3 SECONDS (11.6-15.0)
--- NOTE | 2020-04-06 07:15 | NUR ---
RECEIVED BEDSIDE REPORT. PT SITTING UP IN CHAIR A&O X4. DENIES PAIN. SPOUSE AT BEDSIDE. PIV IN RIGHT AC, PATENT AND INFUSING, NO REDNESS OR SWELLING. O2 VIA NC AT 4L, SAT 97%. TRILOGY AT BEDSIDE. BREATH SOUNDS DIMINISHED ALL LOBES. SHALLOW BREATHS, DYSPNEA ON EXERTION. TELEMETRY IN PLACE, [address] ST. PT ABLE TO AMBULATE WITH MIN ASSIST. EDUCATED PT AND SPOUSE ON CL AND NEEDS, VERBALIZED UNDERSTANDING. BED LOW, CL IN REACH, WILL CONTINUE TO MONITOR.
[2020-04-06 10:26] LABS: CKMB 1.4 U/L (0.0-3.6); CREATINE KINASE 59 UL (21-232)
[2020-04-06 10:27] LABS: TROPONIN-I < 0.017 ng/mL (0.000-0.060)
--- NOTE | 2020-04-06 11:45 | NUR ---
PT C/O PAIN 02/25, PROVIDED PAIN MEDS PER ORDER. CL IN REACH. WILL CONTINUE TO MONITOR.
--- NOTE | 2020-04-06 17:20 | NUR ---
PERFORMED EKG, SCANNED INTO CHART, RECORDED WHEN NEXT EKG TO BE COMPLETED.
--- NOTE | 2020-04-06 19:00 | NUR ---
BEDSIDE REPORT RECEIVED AND CARE OF PT ASSUMED. PT SITTING UP IN CHAIR AT THIS TIME. IV TO RIGHT AC PATENT WITH NS INFUSING AT 75 ML/HR. TELEMETRY IN PLACE AND READING 102 [address] AT THIS ASSESSMENT. WILL MONITOR FOR NEEDS.
--- NOTE | 2020-04-06 20:09 | NUR ---
HS MEDICATIONS GIVEN TO INCLUDE MORPHINE 4 MG IVP FOR C/O SEVERE PAIN IN BACK AND CHEST. WILL CONTINUE TO MONITOR CLOSELY.
--- NOTE | 2020-04-06 21:15 | NUR ---
PT CONTINUES TO C/O SEVERE PAIN...MOANING AND CRYING OUT LOUDLY. GAVE OXY 10 MG PO PER PRN ORDER. WILL CONTINUE TO MONITOR CLOSELY FOR EFFECTIVENESS.
[2020-04-07 00:31] VITALS: BP 122/68
--- NOTE | 2020-04-07 00:56 | NUR ---
PT TURNED TO LEFT SIDE PROPPED WITH PILLOWS, PER TURN SCHEDULE. HEELS BRIDGED WITH PILLOW.
[2020-04-07 05:57] VITALS: BP 126/71
[2020-04-07 06:10] LABS: BASOPHILS 0.1 % (0-2); EOSINOPHILS 4.3 % (0-7); HEMATOCRIT 37.9 % (42.0-54.0); HEMOGLOBIN 11.9 g/dL (13.5-17.5); IMMATURE GRANULOCYTES 0.1 % (0-5); LYMPHOCYTES 11.2 % (15-50); MCH 27.1 pg (26.0-34.0); MCHC 31.4 g/dL (31.0-37.0); MCV 86.3 fL (80.0-100.0); MEAN PLATELET VOLUME 10.1 fL (7.4-10.4); MONOCYTES 14.6 % (2-11); NEUTROPHILS 69.7 % (40-80); PLATELET COUNT 161 10x3/uL (130-400); RBC 4.39 10x6/uL (4.20-6.10); RDW 15.9 % (11.5-14.5)
[2020-04-07 06:14] LABS: WBC 6.8 10x3/uL (4.8-10.8)
[2020-04-07 06:48] LABS: CALC OSMOLALITY 278 mosm/kg (275-300); CALCIUM 8.5 mg/dL (8.5-10.1); CARBON DIOXIDE 29.6 mmol/L (21.0-32.0); CHLORIDE - SERUM 104 mmol/L (98-107); CREATININE - SERUM 0.6 mg/dL (0.6-1.3); GLUCOSE 107 mg/dL (74-106); PHOSPHOROUS 3.5 mg/dL (2.5-4.9); POTASSIUM - SERUM 3.6 mmol/L (3.5-5.1); SODIUM 140 mmol/L (136-145); UREA NITROGEN 12 mg/dL (7-18); eGFR NON AFRICAN AMERICAN > 90 mL/min (90-120)
--- NOTE | 2020-04-07 08:15 | NUR ---
SITTING UP IN CHAIR AT BEDSIDE, AT THE BEDSIDE. ALERT AND ORIENTED WITH NO CURRENT S/S OF DISTRESS. IV LOCATED TO RIGHT AC CURRENTLY RUNNING NS @ 75ML. CURRENTLY RCVING 4L VIA NC. DENIES CURRENT NEEDS, WILL CONT TO MONITOR.
[2020-04-07 08:16] VITALS: BP 113/73
[2020-04-07 09:00] VITALS: Ht 188 cm; Wt 90.7 kg
[2020-04-07 12:23] VITALS: BP 133/82
--- NOTE | 2020-04-07 14:40 | NUR ---
RESP CULTURE COLLECTED AND TAKEN TO LAB.
[2020-04-07 16:40] VITALS: BP 120/67
--- NOTE | 2020-04-07 19:00 | NUR ---
BEDSIDE REPORT RECEIVED AND CARE OF PT ASSUMED. PT LYING IN SUPINE POSITION WITH EYES CLOSED. IV TO RIGHT AC PATENT WITH NS INFUSING AT 75 ML/HR. TELEMETRY IN USE AND READING SR AT THIS ASSESSMENT. WILL MONITOR FOR NEEDS.
--- NOTE | 2020-04-07 20:46 | NUR ---
HS MEDICATIONS GIVEN TO INCLUDE OXY 10 PO PER PRN ORDER, PER REQUEST FOR PAIN. WILL CONTINUE TO MONITOR FOR NEEDS.
[2020-04-07 21:16] VITALS: BP 157/86
[2020-04-08 01:27] VITALS: BP 136/79
--- NOTE | 2020-04-08 04:40 | NUR ---
PT C/O SOB AND SPO2 83%. INCREASED O2 TO 5L AND CALLED RT. PT GIVEN A PRN UPDRAFT TREATMENT AND O2 INCREASED TO 6L. RESTING IN HIS CHAIR AT THIS TIME.
[2020-04-08 05:11] LABS: BASOPHILS 0.3 % (0-2); EOSINOPHILS 4.4 % (0-7); HEMATOCRIT 41.1 % (42.0-54.0); HEMOGLOBIN 12.9 g/dL (13.5-17.5); IMMATURE GRANULOCYTES 0.3 % (0-5); LYMPHOCYTES 11.5 % (15-50); MCHC 31.4 g/dL (31.0-37.0); MCV 86.2 fL (80.0-100.0); MEAN PLATELET VOLUME 9.9 fL (7.4-10.4); MONOCYTES 16.2 % (2-11); NEUTROPHILS 67.3 % (40-80); RBC 4.77 10x6/uL (4.20-6.10); RDW 15.9 % (11.5-14.5)
[2020-04-08 05:33] LABS: PLATELET COUNT 198 10x3/uL (130-400)
[2020-04-08 05:35] LABS: CALC OSMOLALITY 279 mosm/kg (275-300); CALCIUM 8.8 mg/dL (8.5-10.1); CARBON DIOXIDE 29.6 mmol/L (21.0-32.0); CHLORIDE - SERUM 104 mmol/L (98-107); CREATININE - SERUM 0.7 mg/dL (0.6-1.3); GLUCOSE 138 mg/dL (74-106); PHOSPHOROUS 3.2 mg/dL (2.5-4.9); POTASSIUM - SERUM 3.5 mmol/L (3.5-5.1); SODIUM 139 mmol/L (136-145); UREA NITROGEN 12 mg/dL (7-18); eGFR NON AFRICAN AMERICAN > 90 mL/min (90-120)
[2020-04-08 05:44] VITALS: BP 162/101
[2020-04-08 07:46] VITALS: BP 123/74
[2020-04-08 12:03] VITALS: BP 136/72
--- NOTE | 2020-04-08 12:55 | NUR ---
I have reviewed this patient and I concur with the Shift Assessment completed by the Licensed Practical Nurse today this shift.
[2020-04-08 16:41] VITALS: BP 137/84
--- NOTE | 2020-04-08 19:00 | NUR ---
BEDSIDE REPORT RECEIVED AND CARE OF PT ASSUMED. PT IN SHOWER AT THIS TIME. WILL MONITOR FOR NEEDS.
[2020-04-08 20:00] VITALS: BP 138/84
--- NOTE | 2020-04-08 20:15 | NUR ---
IV INFILTRATED AND RED. REMOVED WITH CATHTETER TIP INTACT. RE-SITED IV TO LEFT FA USING 22 GUAGE CATHETER. IV FLUIDS RE-STARTED.
--- NOTE | 2020-04-08 20:23 | NUR ---
HS MEDICATIONS GIVEN. FSBS 177 THIS CHECK REQUIRING COVERAGE WITH 2 UNITS OF INSULIN PER SLIDING SCALE.
[2020-04-09] VITALS: BP 133/88
[2020-04-09 04:00] VITALS: BP 155/87
[2020-04-09 06:14] LABS: BASOPHILS 0.3 % (0-2); HEMATOCRIT 39.5 % (42.0-54.0); HEMOGLOBIN 12.6 g/dL (13.5-17.5); IMMATURE GRANULOCYTES 0.3 % (0-5); MCH 27.6 pg (26.0-34.0); MCHC 31.9 g/dL (31.0-37.0); MCV 86.4 fL (80.0-100.0); MEAN PLATELET VOLUME 9.9 fL (7.4-10.4); MONOCYTES 19.1 % (2-11); NEUTROPHILS 65.3 % (40-80); PLATELET COUNT 198 10x3/uL (130-400); RBC 4.57 10x6/uL (4.20-6.10); RDW 15.8 % (11.5-14.5); WBC 6.6 10x3/uL (4.8-10.8)
[2020-04-09 06:38] LABS: CALC OSMOLALITY 281 mosm/kg (275-300); CALCIUM 8.6 mg/dL (8.5-10.1); CARBON DIOXIDE 31.8 mmol/L (21.0-32.0); CHLORIDE - SERUM 103 mmol/L (98-107); CREATININE - SERUM 0.6 mg/dL (0.6-1.3); GLUCOSE 156 mg/dL (74-106); MAGNESIUM - SERUM 2.2 mg/dL (1.8-2.4); PHOSPHOROUS 2.9 mg/dL (2.5-4.9); POTASSIUM - SERUM 3.8 mmol/L (3.5-5.1); SODIUM 140 mmol/L (136-145); UREA NITROGEN 12 mg/dL (7-18); eGFR NON AFRICAN AMERICAN > 90 mL/min (90-120)
--- NOTE | 2020-04-09 07:20 | NUR ---
PATIENT UP IN CHAIR. DENIES PAIN OR NEEDS AT THIS TIME. FREE FROM SIGNS OF DISTRESS. WILL CONTINUE TO MONITOR.
[2020-04-09 08:56] VITALS: BP 160/93
[2020-04-09 12:20] VITALS: BP 160/94
--- NOTE | 2020-04-09 13:42 | MORECARE ---
CASE MANAGEMENT DISCHARGE SUMMARY PATIENT: CHELSEA HERNANDEZ UNIT: [id number] ADM DATE: 04/05/20 AGE: 69 : 49 SEX: M ROOM/BED: D.2226 AUTHOR: DALTON CARRASCO PHYSICIAN: REFERRING PHYSICIAN: DAMIAN ADAMSON MD DATE OF SERVICE: 04/09/20 Discharge Plan Patient Name: CHELSEA HERNANDEZ [facility] [facility] 1950 Planned Disposition: Anticipated Discharge Date: Discharge Date: Expected LOS: Initial Reviewer: [email or web address] Initial Review Date: 04/09/2020 Generated: 04/09/20 2:42 pm Patient Name: CHELSEA HERNANDEZ Page [id number] at 1342 All edits/amendments must be made on the electronic document DICTATION DATE: 04/09/20 1342 EMERGENCY DEPARTMENT: NICOL 04/09/20 1342 RPT#: [id number] CT DATE: STATUS: ADM IN [facility] [address] [place] [address] END OF REPORT
--- NOTE | 2020-04-09 13:55 | MORECARE ---
CASE MANAGEMENT DISCHARGE SUMMARY PATIENT: CHELSEA HERNANDEZ UNIT: [id number] ADM DATE: 04/05/20 AGE: 69 : 49 SEX: M ROOM/BED: D.2226 AUTHOR: DALTON CARRASCO PHYSICIAN: REFERRING PHYSICIAN: DAMIAN ADAMSON MD DATE OF SERVICE: 04/09/20 Discharge Plan Patient Name: CHELSEA HERNANDEZ Facility: [facility]:[place] : 1950 Planned Disposition: Anticipated Discharge Date: Discharge Date: Expected LOS: Initial Reviewer: [email or web address] Initial Review Date: 04/09/2020 Generated: 04/09/20 2:54 pm Comments DCP- Discharge Planning Updated by [email or web address]: Benita Jeff on 04/09/20 12:[address] Patient Name: CHELSEA HERNANDEZ Admission Status: ER Accout number: [id number] Admission Date: 04-05-2020 : 1950 Admission Diagnosis:PNEUMONITIS DUE TO INHALATION OF FOOD AND VOMIT Attending: DAMIAN ADAMSON Current LOS: 4 Anticipated DC Date: Planned Disposition: Primary Insurance: [employer] CHOICE PPO [facility] Discharge Planning Comments: CM met with patient at bedside after explaining CM role and obtaining verbal consent. CM discussed availability / needs of home health, REHAB and medical equipment. PATIENT HAS O2, PORT AND TRILOGY AT HOME THROUGH [facility]. LIVES WITH AND STATES HE DOES NOT NEED HH, REHAB OR OTHER EQUIPMENT. CM TO FOLLOW AND ASSIST NEEDED. Spring Encaser: Benita Jeff DCPIA - Discharge Planning Initial Assessment Updated by [email or web address]: Benita Jeff on 04/09/20 1:45 pm * Is the patient Alert and Oriented? Yes * PCP ALIREZA * Pharmacy [facility] * Preadmission Environment Home with Family * ADLs Independent * Other Equipment 02, PORTABLE, TRILOGY * Community resources currently utilized None * Additional services required to return to the preadmission environment? No * Can the patient safely return to the preadmission environment? Yes * Has this patient been hospitalized within the prior 30 days at any hospital? Yes Last DP export: 04/09/20 12:43 p Patient Name: CHELSEA HERNANDEZ Page [id number] at 1355 All edits/amendments must be made on the electronic document DICTATION DATE: 04/09/20 1354 MACHINE DESIGN ENGINEER: NICOL 04/09/20 1354 RPT#: [id number] DC DATE: STATUS: ADM IN [facility] [address] [place] [address] END OF REPORT
[2020-04-09 18:08] VITALS: BP 145/92
--- NOTE | 2020-04-09 18:13 | NUR ---
I have reviewed this patient and I concur with the Shift Assessment completed by the Licensed Practical Nurse today this shift.
[2020-04-09 20:00] VITALS: BP 138/87
--- NOTE | 2020-04-10 03:23 | NUR ---
I have reviewed this patient and I concur with the Shift Assessment completed by the Licensed Practical Nurse today this shift.
[2020-04-10 04:00] VITALS: BP 155/81
[2020-04-10 06:50] LABS: BASOPHILS 0.2 % (0-2); EOSINOPHILS 3.7 % (0-7); HEMOGLOBIN 12.1 g/dL (13.5-17.5); IMMATURE GRANULOCYTES 0.2 % (0-5); LYMPHOCYTES 13.8 % (15-50); MCH 26.8 pg (26.0-34.0); MCV 86.3 fL (80.0-100.0); MEAN PLATELET VOLUME 9.4 fL (7.4-10.4); MONOCYTES 17.7 % (2-11); NEUTROPHILS 64.4 % (40-80); PLATELET COUNT 212 10x3/uL (130-400); RBC 4.52 10x6/uL (4.20-6.10); RDW 15.7 % (11.5-14.5); WBC 6.4 10x3/uL (4.8-10.8)
[2020-04-10 07:24] LABS: CALC OSMOLALITY 277 mosm/kg (275-300); CALCIUM 8.8 mg/dL (8.5-10.1); CARBON DIOXIDE 29.5 mmol/L (21.0-32.0); CHLORIDE - SERUM 103 mmol/L (98-107); CREATININE - SERUM 0.6 mg/dL (0.6-1.3); MAGNESIUM - SERUM 2.2 mg/dL (1.8-2.4); PHOSPHOROUS 2.5 mg/dL (2.5-4.9); POTASSIUM - SERUM 3.3 mmol/L (3.5-5.1); SODIUM 139 mmol/L (136-145); UREA NITROGEN 13 mg/dL (7-18); eGFR NON AFRICAN AMERICAN > 90 mL/min (90-120)
[2020-04-10 07:28] LABS: GLUCOSE 99 mg/dL (74-106)
--- NOTE | 2020-04-10 07:42 | NUR ---
PATIENT UP IN CHAIR. DENIES PAIN OR NEEDS AT THIS TIME. FREE FROM SIGNS OF DISTRESS. CALL LIGHT IN REACH. IV INFUSING PER MAR. WILL CONTINUE TO MONITOR.
[2020-04-10 09:10] VITALS: BP 140/90
--- NOTE | 2020-04-10 10:04 | NUR ---
IV IN LEFT FOREARM WENT BAD. RESITED TO RIGHT FOREARM. IV INFUSING PER MAR.
[2020-04-10 12:13] VITALS: BP 129/72
[2020-04-10 16:17] VITALS: BP 143/73
[2020-04-10 20:00] VITALS: BP 153/88
[2020-04-11] VITALS: BP 134/83
--- NOTE | 2020-04-11 03:25 | NUR ---
I have reviewed this patient and I concur with the Shift Assessment completed by the Licensed Practical Nurse today this shift.
[2020-04-11 04:00] VITALS: BP 162/93
[2020-04-11 06:25] LABS: BASOPHILS 0.2 % (0-2); EOSINOPHILS 4.7 % (0-7); HEMATOCRIT 38.8 % (42.0-54.0); HEMOGLOBIN 12.1 g/dL (13.5-17.5); IMMATURE GRANULOCYTES 0.4 % (0-5); LYMPHOCYTES 17.5 % (15-50); MCHC 31.2 g/dL (31.0-37.0); MCV 86.6 fL (80.0-100.0); MEAN PLATELET VOLUME 9.3 fL (7.4-10.4); MONOCYTES 17.1 % (2-11); NEUTROPHILS 60.1 % (40-80); PLATELET COUNT 192 10x3/uL (130-400); RBC 4.48 10x6/uL (4.20-6.10); RDW 15.6 % (11.5-14.5); WBC 5.5 10x3/uL (4.8-10.8)
[2020-04-11 06:50] LABS: CALC OSMOLALITY 277 mosm/kg (275-300); CALCIUM 8.6 mg/dL (8.5-10.1); CARBON DIOXIDE 26.5 mmol/L (21.0-32.0); CHLORIDE - SERUM 102 mmol/L (98-107); CREATININE - SERUM 0.7 mg/dL (0.6-1.3); GLUCOSE 146 mg/dL (74-106); MAGNESIUM - SERUM 2.1 mg/dL (1.8-2.4); PHOSPHOROUS 2.8 mg/dL (2.5-4.9); POTASSIUM - SERUM 3.3 mmol/L (3.5-5.1); SODIUM 137 mmol/L (136-145); UREA NITROGEN 14 mg/dL (7-18); eGFR NON AFRICAN AMERICAN > 90 mL/min (90-120)
[2020-04-11 08:33] VITALS: BP 141/91
[2020-04-11 12:33] VITALS: BP 153/76
--- NOTE | 2020-04-11 19:00 | NUR ---
I HAVE REVIEWED THIS PT AND I CONCUR WITH THE SHIFT ASSESSMENT COMPLETED BY THE GIS MANAGER TODAY.
[2020-04-11 20:00] VITALS: BP 121/89
[2020-04-12 04:00] VITALS: BP 140/86
--- NOTE | 2020-04-12 04:13 | NUR ---
I have reviewed this patient and I concur with the Shift Assessment completed by the Licensed Practical Nurse today this shift.
[2020-04-12 08:34] VITALS: BP 147/88
--- NOTE | 2020-04-12 09:00 | NUR ---
ASSESSMENT PER FLOW SHEET. PATIENT IS WITHOUT DISTRESS. DENIES NEEDS.CALL LIGHT IN REACH.FAMILY AT BEDSIDE.CALL LIGHT IN REACH
--- NOTE | 2020-04-12 09:19 | NUR ---
CALL TO LAB FOR V[facility] EHSAN RESULS. SPOKE WITH HOLLIS
[2020-04-12 12:55] VITALS: BP 139/77
--- NOTE | 2020-04-12 13:30 | NUR ---
IV RESITED TO LEFT FOREARM X2 STICKS,ASEPTIC TECH. IV DCD FRON RIGHT FOREARM WITH CATH TIP INTACT. IV SITE VERY TENDER
[2020-04-12 13:36] LABS: CALC OSMOLALITY 282 mosm/kg (275-300); CALCIUM 9.1 mg/dL (8.5-10.1); CHLORIDE - SERUM 100 mmol/L (98-107); CREATININE - SERUM 0.8 mg/dL (0.6-1.3); GLUCOSE 184 mg/dL (74-106); POTASSIUM - SERUM 3.6 mmol/L (3.5-5.1); SODIUM 140 mmol/L (136-145); UREA NITROGEN 11 mg/dL (7-18); eGFR NON AFRICAN AMERICAN > 90 mL/min (90-120)
[2020-04-12 13:37] LABS: CARBON DIOXIDE 34.2 mmol/L (21.0-32.0)
[2020-04-12 16:08] LABS: BASOPHILS 0.4 % (0-2); EOSINOPHILS 0.9 % (0-7); HEMATOCRIT 42.5 % (42.0-54.0); HEMOGLOBIN 13.6 g/dL (13.5-17.5); IMMATURE GRANULOCYTES 0.2 % (0-5); LYMPHOCYTES 7.3 % (15-50); MCH 27.3 pg (26.0-34.0); MCV 85.3 fL (80.0-100.0); MEAN PLATELET VOLUME 9.3 fL (7.4-10.4); MONOCYTES 9.8 % (2-11); NEUTROPHILS 81.4 % (40-80); PLATELET COUNT 229 10x3/uL (130-400); RBC 4.98 10x6/uL (4.20-6.10); RDW 15.4 % (11.5-14.5); WBC 5.5 10x3/uL (4.8-10.8)
[2020-04-12 17:22] VITALS: BP 126/79
--- NOTE | 2020-04-12 19:00 | NUR ---
BEDSIDE REPORT RECEIVED AND CARE OF PT ASSUMED. PT SITTING UP IN CHAIR WATCHING TV. IV TO LEFT FA PATENT WITH NS INFUSING AT 20 ML/HR.
--- NOTE | 2020-04-12 21:07 | NUR ---
HS MEDICATIONS GIVEN TO INCLUDE OXY PO PER PRN ORDER, PER REQUEST FOR PAIN. FSBS 190 THIS CHECK REQUIRING COVERAGE WITH 2 UINTS OF INSULIN PER SLIDING SCALE. PT DECLINES HS SNACK AT THIS TIME.
[2020-04-12 21:08] VITALS: BP 120/100
[2020-04-13 05:52] LABS: CALC OSMOLALITY 281 mosm/kg (275-300); CALCIUM 8.9 mg/dL (8.5-10.1); CARBON DIOXIDE 33.2 mmol/L (21.0-32.0); CHLORIDE - SERUM 106 mmol/L (98-107); CREATININE - SERUM 0.7 mg/dL (0.6-1.3); MAGNESIUM - SERUM 2.1 mg/dL (1.8-2.4); POTASSIUM - SERUM 3.3 mmol/L (3.5-5.1); SODIUM 141 mmol/L (136-145); UREA NITROGEN 10 mg/dL (7-18); eGFR NON AFRICAN AMERICAN > 90 mL/min (90-120)
[2020-04-13 05:56] LABS: GLUCOSE 136 mg/dL (74-106)
[2020-04-13 05:57] VITALS: BP 151/95
[2020-04-13 08:01] LABS: BASOPHILS 0.2 % (0-2); EOSINOPHILS 9.4 % (0-7); HEMOGLOBIN 12.7 g/dL (13.5-17.5); IMMATURE GRANULOCYTES 0.4 % (0-5); LYMPHOCYTES 19.5 % (15-50); MCH 27.1 pg (26.0-34.0); MCHC 31.8 g/dL (31.0-37.0); MCV 85.5 fL (80.0-100.0); MEAN PLATELET VOLUME 9.2 fL (7.4-10.4); NEUTROPHILS 54.5 % (40-80); PLATELET COUNT 224 10x3/uL (130-400); RBC 4.68 10x6/uL (4.20-6.10); RDW 15.5 % (11.5-14.5); WBC 5.3 10x3/uL (4.8-10.8)
--- NOTE | 2020-04-13 08:10 | NUR ---
0700 BEDSIDE REPORT RECEIVED BROUGHT PT COFFEE PER REQUEST AD FATOU IN ROOM ASSESSMENT COMLETE
[2020-04-13 09:27] VITALS: BP 114/99
[2020-04-13 12:00] VITALS: BP 137/80
[2020-04-13] MEDS ORDERED: K-DUR20 MEQ PO (14:48)
--- NOTE | 2020-04-13 16:14 | NUR ---
1414 D/C IV COLD ICE PACK GIVN TO PT TO PLACE OVER SITE PER REQUEST WRITTEN AND VERBAL DISCHARGE INSTRUCTIONS GIVEN BOTH PT AND SPOUSE VERBALIZED UNDERSTANDING
--- NOTE | 2020-04-13 16:14 | NUR ---
1300 DR SHERWOOD ROUNDING ON PATIENT
--- NOTE | 2020-04-13 17:27 | NUR ---
1430 TRANSPORTED VIA WHEEL CHAIR TO AUTO AT ER ENTRANCE WEARING 02 @ 4L/NC HFNC
--- NOTE | 2020-04-13 18:36 | MORECARE ---
CASE MANAGEMENT DISCHARGE SUMMARY PATIENT: CHELSEA DESAI UNIT: [id number] ADM DATE: 04/05/20 AGE: 69 : 49 SEX: M ROOM/BED: D.2226 AUTHOR: DALTON CARRASCO PHYSICIAN: REFERRING PHYSICIAN: DAMIAN ADAMSON MD DATE OF SERVICE: 04/13/20 Discharge Plan Patient Name: CHELSEA DESAI Facility: [facility]:[place] : 1950 Planned Disposition: Anticipated Discharge Date: 04/13/20 Discharge Date: 04/13/2020 Expected LOS: 8 Initial Reviewer: [email or web address] Initial Review Date: 04/09/2020 Generated: 04/13/20 7:36 pm Comments DCP- Discharge Planning Updated by [email or web address]: Jaguar Gutiérrez on 04/13/20 5:[address] Patient Name: CHELSEA DESAI Encounter No: [id number] : 1950 Primary Insurance: [employer] CHOICE PPO [employer] Anticipated DC Date: 04-13-2020 Planned Disposition: External Planned Provider: : DCP follow-up note: CM met with patient and spouse, Anaid Desai ([phone]) to complete initial dc planning assessment. CM educated patient and spouse on the CM role and verbal consent was given by the patient to complete assessment. CM verified patient's address, phone number, and emergency contact phone numbers. Patient lives at home with his spouse. At discharge patient plans to return home and feels this is a safe discharge. CM discussed availability of home health, rehab services, and medical equipment. It was noted that patient is on 6L of O2 via [place]. Patient stated that he has recurring pneumonia and has Oxygen equipment at home through [facility]. Patient states that he has a travel O2 tank in his vehicle and does not need O2 DME coordination. Patient declined HHS, SNF, IPR, DME and no other known discharge needs were discussed at this time. Transportation provider at discharge will be with his spouse Anaid. CM will continue to follow and will assist as needed with dc plans/needs. Jaguar Gutiérrez DCP- Discharge Planning Updated by [email or web address]: Benita Jeff on 04/09/20 12:[address] Patient Name: CHELSEA DESAI Admission Status: ER Accout number: [id number] Admission Date: 04-05-2020 : 1950 Admission Diagnosis:PNEUMONITIS DUE TO INHALATION OF FOOD AND VOMIT Attending: DAMIAN ADAMSON Current LOS: 4 Anticipated DC Date: Planned Disposition: Primary Insurance: [employer] CHOICE PPO [employer] Discharge Planning Comments: CM met with patient at bedside after explaining CM role and obtaining verbal consent. CM discussed availability / needs of home health, REHAB and medical equipment. PATIENT HAS O2, PORT AND TRILOGY AT HOME THROUGH [facility]. LIVES WITH AND STATES HE DOES NOT NEED HH, REHAB OR OTHER EQUIPMENT. CM TO FOLLOW AND ASSIST NEEDED. Pharmacy Informatics Specialist: Benita Jeff DCPIA - Discharge Planning Initial Assessment Updated by [email or web address]: Benita Jeff on 04/09/20 1:45 pm * Is the patient Alert and Oriented? Yes * PCP ALIREZA * Pharmacy [facility] * Preadmission Environment Home with Family * ADLs Independent * Other Equipment 02, PORTABLE, TRILOGY * Community resources currently utilized None * Additional services required to return to the preadmission environment? No * Can the patient safely return to the preadmission environment? Yes * Has this patient been hospitalized within the prior 30 days at any hospital? Yes Last DP export: 04/09/20 12:55 p Patient Name: CHELSEA DESAI Page 61628 at 1836 All edits/amendments must be made on the electronic document DICTATION DATE: 04/13/201835 ATTENDANT SALES: NICOL 04/13/201835 RPT#: [id number] DC DATE:04/13/20 STATUS: DIS IN [facility] [address] [place] [address] END OF REPORT
--- NOTE | 2020-04-15 08:44 | MORECARE ---
CASE MANAGEMENT DISCHARGE SUMMARY PATIENT: CHELSEA DESAI UNIT: [id number] ADM DATE: 04/05/20 AGE: 69 : 49 SEX: M ROOM/BED: D.2226 AUTHOR: DALTON CARRASCO PHYSICIAN: REFERRING PHYSICIAN: DAMIAN ADAMSON MD DATE OF SERVICE: 04/15/20 Discharge Plan Patient Name: CHELSEA DESAI Facility: [facility]:[place] : 1950 Planned Disposition: Anticipated Discharge Date: 04/13/20 Discharge Date: 04/13/2020 Expected LOS: 8 Initial Reviewer: [email or web address] Initial Review Date: 04/09/2020 Generated: 04/15/20 9:44 am Comments DCP- Discharge Planning Updated by [email or web address]: Jaguar Gutiérrez on 04/13/20 5:[address] Patient Name: CHELSEA DESAI Encounter No: [id number] : 1950 Primary Insurance: [employer] CHOICE PPO [employer] Anticipated DC Date: 04-13-2020 Planned Disposition: External Planned Provider: : DCP follow-up note: CM met with patient and spouse, Anaid Desai ([phone]) to complete initial dc planning assessment. CM educated patient and spouse on the CM role and verbal consent was given by the patient to complete assessment. CM verified patient's address, phone number, and emergency contact phone numbers. Patient lives at home with his spouse. At discharge patient plans to return home and feels this is a safe discharge. CM discussed availability of home health, rehab services, and medical equipment. It was noted that patient is on 6L of O2 via [place]. Patient stated that he has recurring pneumonia and has Oxygen equipment at home through [facility]. Patient states that he has a travel O2 tank in his vehicle and does not need O2 DME coordination. Patient declined HHS, SNF, IPR, DME and no other known discharge needs were discussed at this time. Transportation provider at discharge will be with his spouse Anaid. CM will continue to follow and will assist as needed with dc plans/needs. Jaguar Gutiérrez DCP- Discharge Planning Updated by [email or web address]: Benita Jeff on 04/09/20 12:[address] Patient Name: CHELSEA DESAI Admission Status: ER Accout number: [id number] Admission Date: 04-05-2020 : 1950 Admission Diagnosis:PNEUMONITIS DUE TO INHALATION OF FOOD AND VOMIT Attending: DAMIAN ADAMSON Current LOS: 4 Anticipated DC Date: Planned Disposition: Primary Insurance: [employer] CHOICE PPO [employer] Discharge Planning Comments: CM met with patient at bedside after explaining CM role and obtaining verbal consent. CM discussed availability / needs of home health, REHAB and medical equipment. PATIENT HAS O2, PORT AND TRILOGY AT HOME THROUGH [facility]. LIVES WITH AND STATES HE DOES NOT NEED HH, REHAB OR OTHER EQUIPMENT. CM TO FOLLOW AND ASSIST NEEDED. Roller Stainer: Benita Jeff DCPIA - Discharge Planning Initial Assessment Updated by [email or web address]: Benita Jeff on 04/09/20 1:45 pm * Is the patient Alert and Oriented? Yes * PCP ALIREZA * Pharmacy [facility] * Preadmission Environment Home with Family * ADLs Independent * Other Equipment 02, PORTABLE, TRILOGY * Community resources currently utilized None * Additional services required to return to the preadmission environment? No * Can the patient safely return to the preadmission environment? Yes * Has this patient been hospitalized within the prior 30 days at any hospital? Yes Last DP export: 04/13/20 5:36 p Patient Name: CHELSEA DESAI Page [phone] at 0844 All edits/amendments must be made on the electronic document DICTATION DATE: 04/15/20843 BUS CLEANER: NICOL 04/15/2044 RPT#: [id number] DC DATE:04/13/20 STATUS: DIS IN [facility] [address] [place] [address] END OF REPORT
== END 2020-04-13 16:30 | disposition home or self-care (01) | DRG 177 ==
LOC: D.ER 14:30 → D.MS 16:13
PROVIDERS: Family Medicine; ADMIT Emergency Medicine; ATTEND Emergency Medicine
DX: J69.0 Pneumonitis due to inhalation of food and vomit (principal); J96.22 Acute and chronic respiratory failure with hypercapnia; J96.21 Acute and chronic respiratory failure with hypoxia; J43.9 Emphysema, unspecified; I10 Essential (primary) hypertension; K21.9 Gastro-esophageal reflux disease without esophagitis; G89.29 Other chronic pain; E11.40 Type 2 diabetes mellitus with diabetic neuropathy, unspecified; M19.90 Unspecified osteoarthritis, unspecified site; N40.0 Benign prostatic hyperplasia without lower urinary tract symptoms; Z87.891 Personal history of nicotine dependence

== ENCOUNTER 2020-04-18 08:15 | Inpatient (IN) | payer MEDICARE ==
[2020-04-17 16:29] LABS: BASOPHILS 0.3 % (0-2); EOSINOPHILS 6.8 % (0-7); HEMATOCRIT 43.1 % (42.0-54.0); HEMOGLOBIN 13.5 g/dL (13.5-17.5); IMMATURE GRANULOCYTES 0.5 % (0-5); LYMPHOCYTES 16.5 % (15-50); MCH 26.9 pg (26.0-34.0); MCHC 31.3 g/dL (31.0-37.0); MCV 85.9 fL (80.0-100.0); MEAN PLATELET VOLUME 9.4 fL (7.4-10.4); MONOCYTES 16.6 % (2-11); NEUTROPHILS 59.3 % (40-80); RBC 5.02 10x6/uL (4.20-6.10); RDW 15.5 % (11.5-14.5); WBC 6.5 10x3/uL (4.8-10.8)
[2020-04-17 16:52] LABS: PLATELET COUNT 290 10x3/uL (130-400)
[2020-04-17 17:12] LABS: CALC OSMOLALITY 280 mosm/kg (275-300); CALCIUM 9.5 mg/dL (8.5-10.1); CARBON DIOXIDE 31.8 mmol/L (21.0-32.0); CHLORIDE - SERUM 101 mmol/L (98-107); CREATININE - SERUM 0.9 mg/dL (0.6-1.3); GLUCOSE 121 mg/dL (74-106); SODIUM 140 mmol/L (136-145); UREA NITROGEN 14 mg/dL (7-18); eGFR NON AFRICAN AMERICAN 89 mL/min (90-120)
[~2020-04-18] VITALS: Ht 188 cm; Wt 89.4 kg
[2020-04-18] VITALS (9 sets, daily range): BP systolic 117–135; BP diastolic 70–84; BMI 25.3
[~2020-04-18 08:15] MED LIST changes: +K-DUR20 MEQ PO
--- NOTE | 2020-04-18 14:40 | NUR ---
1345 PT IS MOANING AND COMPLAINING OF BILATERAL SHOULDER PAIN. IV IN RIGHT WRIST IS NOT PATENT. DC'D IV. CATHETER TIP INTACT. NO BLEEDING AT SITE. BANDAGE APPLIED. IV STARTED IN LEFT ARM WITH 20G ANGIOCATH. NS INFUSING AT TKO. 1350 IV DILAUDID GIVEN FOR SHOULDER PAIN. 1415 REPORT GIVEN TO OCTAVIA LEWIS RN FOR TRANSFER OF CARE
--- NOTE | 2020-04-18 15:27 | NUR ---
1510 PT PUT ON HOME CPAP WITH O2 4LITERS AT HOME O2 SATS 79% PRIOR. O2 SAT NOW 90%
--- NOTE | 2020-04-18 16:25 | NUR ---
1540 PT FOUND IN GONZALEZ WALKING WITH AND NO 02. RETURNED TO ROOM AND O2 SAT 36. RETURN TO 79 WITH TRILOGY MACHINE ON. RESP CALLED FOR A BREATHING TREATMENT
--- NOTE | 2020-04-18 16:30 | NUR ---
REPORT GIVEN TO LENORA ON MED SURG.
--- NOTE | 2020-04-18 16:54 | NUR ---
1650 RECEIVED PATIENT FROM OUT PT SURGERY 117/73 112 18 97.8 02 SAT 85% ON 5L HFNC NOTIFIED RT TO COME EVALUATE PT RESP STATUS
[2020-04-19] VITALS: BP 161/86
[2020-04-19 04:00] VITALS: BP 149/91
[2020-04-19 06:03] LABS: BASOPHILS 0.2 % (0-2); HEMATOCRIT 42.4 % (42.0-54.0); IMMATURE GRANULOCYTES 0.4 % (0-5); LYMPHOCYTES 10.5 % (15-50); MCH 26.6 pg (26.0-34.0); MCHC 30.7 g/dL (31.0-37.0); MCV 86.7 fL (80.0-100.0); MEAN PLATELET VOLUME 9.5 fL (7.4-10.4); MONOCYTES 15.5 % (2-11); NEUTROPHILS 72.4 % (40-80); PLATELET COUNT 345 10x3/uL (130-400); RBC 4.89 10x6/uL (4.20-6.10); RDW 15.2 % (11.5-14.5)
[2020-04-19 06:10] LABS: WBC 8.4 10x3/uL (4.8-10.8)
[2020-04-19 06:29] LABS: CALC OSMOLALITY 289 mosm/kg (275-300); CARBON DIOXIDE 32.8 mmol/L (21.0-32.0); CHLORIDE - SERUM 104 mmol/L (98-107); CREATININE - SERUM 0.7 mg/dL (0.6-1.3); GLUCOSE 124 mg/dL (74-106); POTASSIUM - SERUM 3.9 mmol/L (3.5-5.1); SODIUM 144 mmol/L (136-145); UREA NITROGEN 17 mg/dL (7-18); eGFR NON AFRICAN AMERICAN > 90 mL/min (90-120)
[2020-04-19 06:40] LABS: TROPONIN-I < 0.017 ng/mL (0.000-0.060)
[2020-04-19 12:00] VITALS: BP 172/98
[2020-04-19 13:59] VITALS: BP 176/98
[2020-04-19 14:51] VITALS: BMI 25.3
[2020-04-19 15:05] VITALS: Ht 188 cm; Wt 89.4 kg
[2020-04-19 17:24] VITALS: BP 158/94
[2020-04-19 18:06] LABS: CKMB 8.1 U/L (0.0-3.6); CREATINE KINASE 362 UL (21-232); TROPONIN-I < 0.017 ng/mL (0.000-0.060)
--- NOTE | 2020-04-19 19:00 | NUR ---
BEDSIDE REPORT RECEIVED AND CARE OF PT ASSUMED. PT SITTING UP IN CHAIR WATCHING TV. IV TO LEFT FA PATENT WITH NS INFUSING AT 100 ML/HR, AND DIESEL ENGINE MECHANIC WITH DILAUDID IN USE FOR PAIN CONTROL. LAP SITES ON ABDOMEN WELL APPROXIMATED WITH NO DRAINAGE.
[2020-04-19 20:24] VITALS: BP 139/83
--- NOTE | 2020-04-19 20:56 | NUR ---
HS MEDICATIONS GIVEN. FSBS 160 THIS CHECK REQUIRING COVERAGE WITH 4 UNITS OF INSULIN PER SLIDING SCALE.
--- NOTE | 2020-04-19 23:00 | NUR ---
EKG PERFORMED AND SCANNED INTO SYSTEM. NORMAL EKG / SINUS RHYTHM
[2020-04-19 23:29] LABS: CKMB 5.3 U/L (0.0-3.6)
[2020-04-19 23:40] LABS: CREATINE KINASE 240 UL (21-232); TROPONIN-I < 0.017 ng/mL (0.000-0.060)
[2020-04-20 05:12] VITALS: BP 137/67
[2020-04-20 06:31] LABS: CKMB 4.8 U/L (0.0-3.6); CREATINE KINASE 197 UL (21-232); TROPONIN-I < 0.017 ng/mL (0.000-0.060)
[2020-04-20 08:00] VITALS: BP 166/73
--- NOTE | 2020-04-20 09:00 | NUR ---
ALERT AND ORIENTED X4 IV INFILTRATED AND DISCONTINUED. ABDOMEN SOFT WITH BOWEL SOUNDS HYPOACTIVE X ANTERIOR WITH STERISTRIPS INTACT TO ABDOMEN. STATED HAD A BOWEL MOVEMENT THIS MORNING. ENCOURAGED TO AMBULATE TO INCREEASE PERISTALISIS. DENIES ANY PAIN OR DISCOMFORT AT THIS TIME AND STATES REFERED SHOULDER PAIN IMPROVED.
[2020-04-20 11:44] LABS: BASOPHILS 0.1 % (0-2); EOSINOPHILS 0.4 % (0-7); HEMATOCRIT 43.2 % (42.0-54.0); HEMOGLOBIN 13.3 g/dL (13.5-17.5); IMMATURE GRANULOCYTES 0.4 % (0-5); LYMPHOCYTES 8.3 % (15-50); MCH 26.6 pg (26.0-34.0); MCHC 30.8 g/dL (31.0-37.0); MCV 86.4 fL (80.0-100.0); MEAN PLATELET VOLUME 9.2 fL (7.4-10.4); MONOCYTES 6.9 % (2-11); NEUTROPHILS 83.9 % (40-80); PLATELET COUNT 340 10x3/uL (130-400); RDW 15.3 % (11.5-14.5)
[2020-04-20 12:02] LABS: ALBUMIN 3.3 g/dL (3.4-5.0); ALKALINE PHOSPHATASE 60 U/L (30-120); ALT (SGPT) 44 U/L (10-68); BILIRUBIN - TOTAL 0.27 mg/dL (0.2-1.3); CALCIUM 8.9 mg/dL (8.5-10.1); CARBON DIOXIDE 30.7 mmol/L (21.0-32.0); CHLORIDE - SERUM 104 mmol/L (98-107); POTASSIUM - SERUM 4.2 mmol/L (3.5-5.1); PROTEIN - SERUM 6.5 g/dL (6.4-8.2); SODIUM 141 mmol/L (136-145); UREA NITROGEN 20 mg/dL (7-18)
[2020-04-20 12:03] LABS: CALC OSMOLALITY 289 mosm/kg (275-300); GLUCOSE 204 mg/dL (74-106)
[2020-04-20 12:09] LABS: CREATININE - SERUM 0.8 mg/dL (0.6-1.3); eGFR NON AFRICAN AMERICAN > 90 mL/min (90-120)
--- NOTE | 2020-04-20 12:19 | NUR ---
IV DISCONTIUED AND VERBALIZED UNDERSTANDING OF DISCHARGE INSTRUCTIONS. STABLE AT TIME OF DISCHARGE WITH PATIENT HAVING HOME OXYGEN AND PROTABLE O2 WELL.
--- NOTE | 2020-04-24 09:19 | OP ---
PATIENT NAME: CHELSEA HERNANDEZ MEDICAL RECORD: [id number] :[birth year] LOCATION:[id number] ADMISSION DATE:04/19/20 SURGEON: WELLINGTON CONRAD MD DATE OF OPERATION: 04/18/2020 PREOPERATIVE DIAGNOSES: 1. GERD. 2. Carrero esophagus. 3. COPD. 4. Diabetes mellitus. 5. Hypertension. POSTOPERATIVE DIAGNOSES: 1. GERD. 2. Carrero esophagus. 3. COPD. 4. Diabetes mellitus. 5. Hypertension. PROCEDURE: Laparoscopic Daquan fundoplication. SURGEON: Wellington Conrad MD REPORT OF PROCEDURE: The patient's abdomen was prepped and draped in sterile fashion. A Veress needle was inserted in the left upper quadrant and the abdomen was insufflated. An 11 mm Visiport trocar was inserted in the midline above the umbilicus. Once inside, we could see the Veress needle and there was no sign of any injury to bowel or surrounding structures. The Veress needle was removed and in its place, an 11 mm trocar was inserted; in the epigastrium, there was a 5 mm trocar inserted; in the left lateral abdomen, a 5 mm trocar was inserted; and in the right lateral subcostal region, a final 5 mm trocar was inserted. Through this lateral trocar, we were able to insert a liver retractor to elevate the left lobe of the liver. At this point, we could see the stomach and there was a lot of fatty adhesions present near the upper aspect of the stomach. We began by taking down the lesser omentum using Harmonic scalpel. While doing this, there was noted to be multiple blood vessels present within it and these were taken down with Harmonic scalpel except for a large arterial blood supply. This was maintained throughout the surgery. We were able to find the right side of the right courtney and dissect this free until we progressed up into the patient's thoracic cavity. We went as far anteriorly and posteriorly as possible. We then proceeded to the greater curvature of the stomach and began taking down the short gastrics on the upper third of the stomach using Harmonic scalpel. We continued this dissection up to the fundus of the stomach until we encountered the left side of the right courtney. Again, we scored the peritoneum and entered the thoracic cavity and at this point, we dissected all the tissue out until we had a 360-degree inspection of the distal esophagus. This esophagus was not very long, but there was a couple of centimeters of free hanging esophagus in the abdominal cavity. I could see the anterior vagus nerve and it was intact. The esophageal hiatus was then reapproximated with interrupted 0 Polydeks times 3. We then performed a 360-degree posterior wrap of the fundus of the stomach around the distal esophagus. This was done with interrupted 0 Polydeks times 3 with the top and the bottom suture incorporating the bite of the esophagus. Everything appeared to be intact and there was no sign of any active bleeding. We irrigated out the right upper quadrant and left upper quadrant. The liver retractor was then removed. At this point, the ports OPERATIVE REPORT [id number] CHELSEA HERNANDEZ and insufflation were then removed. The 11 mm trocar site fascias were closed with interrupted 0 Vicryls. The skin incisions were infused with 10 mL of 0.25% Marcaine with epinephrine and then closed with subcutaneous 5-0 Monocryl. COMPLICATIONS: None. CONDITION: Stable. ANESTHESIA: General endotracheal and local. BLOOD LOSS: Minimal. NTS:[id number] Voice Confirmation ID: [id number] DOCUMENT ID: [id number] WELLINGTON CONRAD MD at 0919 CC: LUCIO ANGEL MD and ANISA LAY [phone] DICTATION DATE: 04/18/20 1307 WASHHOUSE HAND: 04/18/202117 DIS IN 04/20/20 [facility] [address] [place] [address]
== END 2020-04-20 12:21 | disposition home or self-care (01) | DRG 987 ==
LOC: D.MS 08:15 → D.OPS 08:15 → D.PAN 10:30 → D.OPS 10:30 → D.MS 16:31 → D.OPS 04-19 14:58 → D.MS 04-19 14:59
PROVIDERS: Anesthesiology; Family Medicine Adult Medicine; ADMIT Surgery; ATTEND Surgery
PROC: 0DV44ZZ Restriction of Esophagogastric Junction, Percutaneous Endoscopic Approach (ICD-10-PCS; principal; 2020-04-19)
DX: J43.9 Emphysema, unspecified (principal); J96.21 Acute and chronic respiratory failure with hypoxia; K21.9 Gastro-esophageal reflux disease without esophagitis; K22.70 Barrett's esophagus without dysplasia; I10 Essential (primary) hypertension; E11.40 Type 2 diabetes mellitus with diabetic neuropathy, unspecified; N40.0 Benign prostatic hyperplasia without lower urinary tract symptoms; D45 Polycythemia vera; K22.2 Esophageal obstruction

== ENCOUNTER 2020-04-23 06:28 | Inpatient (IN) | payer MEDICARE ==
[~2020-04-23] VITALS: Ht 188 cm; Wt 89.5 kg
[2020-04-23 07:05] LABS: BASOPHILS 0.2 % (0-2); EOSINOPHILS 4.5 % (0-7); HEMATOCRIT 44.9 % (42.0-54.0); HEMOGLOBIN 14.1 g/dL (13.5-17.5); IMMATURE GRANULOCYTES 0.5 % (0-5); LYMPHOCYTES 9.7 % (15-50); MCH 26.3 pg (26.0-34.0); MCHC 31.4 g/dL (31.0-37.0); MCV 83.8 fL (80.0-100.0); MEAN PLATELET VOLUME 9.3 fL (7.4-10.4); MONOCYTES 14.8 % (2-11); NEUTROPHILS 70.3 % (40-80); PLATELET COUNT 389 10x3/uL (130-400); RBC 5.36 10x6/uL (4.20-6.10); WBC 8.9 10x3/uL (4.8-10.8)
[2020-04-23 07:09] LABS: INR 1.15 (0.85-1.17); PROTIME 14.6 SECONDS (11.6-15.0)
[2020-04-23 07:25] LABS: CALC OSMOLALITY 280 mosm/kg (275-300); CALCIUM 9.4 mg/dL (8.5-10.1); CARBON DIOXIDE 23.2 mmol/L (21.0-32.0); CHLORIDE - SERUM 102 mmol/L (98-107); CREATININE - SERUM 0.7 mg/dL (0.6-1.3); GLUCOSE 119 mg/dL (74-106); POTASSIUM - SERUM 3.4 mmol/L (3.5-5.1); SODIUM 140 mmol/L (136-145); UREA NITROGEN 14 mg/dL (7-18); eGFR NON AFRICAN AMERICAN > 90 mL/min (90-120)
[2020-04-23 07:35] LABS: ALBUMIN 3.6 g/dL (3.4-5.0); ALKALINE PHOSPHATASE 55 U/L (30-120); ALT (SGPT) 29 U/L (10-68); PROTEIN - SERUM 6.9 g/dL (6.4-8.2); TROPONIN-I < 0.017 ng/mL (0.000-0.060)
[2020-04-23 11:10] VITALS: BP 142/82
--- NOTE | 2020-04-23 11:38 | NUR ---
COVID SWAB TO LAB
--- NOTE | 2020-04-23 12:02 | NUR ---
URINE TO LAB
[2020-04-23 12:12] LABS: BILIRUBIN NEGATIVE (NEGATIVE); KETONE LARGE mg/dL (NEGATIVE); NITRITE NEGATIVE (NEGATIVE); UROBILINOGEN NORMAL mg/dL (< 2)
[2020-04-23 12:46] VITALS: BP 142/82; Ht 188 cm; Wt 89.5 kg
[2020-04-23 14:17] VITALS: BP 147/85
[2020-04-23 15:50] VITALS: BP 132/79
[2020-04-23 20:00] VITALS: BP 142/83
[2020-04-24] VITALS: BP 152/91
[2020-04-24 04:00] VITALS: BP 156/94
[2020-04-24 06:11] LABS: BASOPHILS 0.3 % (0-2); HEMATOCRIT 41.3 % (42.0-54.0); HEMOGLOBIN 12.9 g/dL (13.5-17.5); IMMATURE GRANULOCYTES 0.3 % (0-5); LYMPHOCYTES 10.4 % (15-50); MCH 26.3 pg (26.0-34.0); MCHC 31.2 g/dL (31.0-37.0); MCV 84.1 fL (80.0-100.0); MEAN PLATELET VOLUME 9.2 fL (7.4-10.4); MONOCYTES 18.7 % (2-11); NEUTROPHILS 63.3 % (40-80); PLATELET COUNT 339 10x3/uL (130-400); RBC 4.91 10x6/uL (4.20-6.10); RDW 14.9 % (11.5-14.5)
[2020-04-24 06:16] LABS: WBC 6.5 10x3/uL (4.8-10.8)
[2020-04-24 06:26] LABS: CALC OSMOLALITY 282 mosm/kg (275-300); CALCIUM 8.7 mg/dL (8.5-10.1); CARBON DIOXIDE 31.9 mmol/L (21.0-32.0); CHLORIDE - SERUM 105 mmol/L (98-107); CREATININE - SERUM 0.6 mg/dL (0.6-1.3); GLUCOSE 117 mg/dL (74-106); POTASSIUM - SERUM 3.5 mmol/L (3.5-5.1); SODIUM 142 mmol/L (136-145); UREA NITROGEN 9 mg/dL (7-18); eGFR NON AFRICAN AMERICAN > 90 mL/min (90-120)
[2020-04-24 09:49] VITALS: BP 160/89
--- NOTE | 2020-04-24 10:30 | NUR ---
IV DCD. DC PLANS GIVEN. UNDERSTANDING VOICED. ESCORTED TO CAR BY W/C.
== END 2020-04-24 10:31 | disposition home or self-care (01) | DRG 392 ==
LOC: D.ER 06:28 → D.EDHOLD 09:14 → OBSVTIME 09:14 → D.M2 11:17
PROVIDERS: Family Medicine; ADMIT Surgery; ATTEND Surgery
DX: R13.10 Dysphagia, unspecified (principal); J43.9 Emphysema, unspecified; E11.9 Type 2 diabetes mellitus without complications; M25.512 Pain in left shoulder; I10 Essential (primary) hypertension